=== PATIENT | male | born 1945 | race Caucasian/White ===

== ENCOUNTER 2018-01-12 11:15 | Inpatient (IN) | payer MEDICARE ==
[2018-01-12] MEDS ORDERED: HEPARIN SODIUM,PORCINE 5,000 UNIT/ML 1 ML VIAL IV ONE (11:18)
[2018-01-12] MEDS ORDERED: NITROGLYCERIN OINT 1 INCH/GM PACKET TOPICAL STA (11:18)
[2018-01-12] MEDS ORDERED: SODIUM CHLORIDE 0.9% 1,000 ML IV STA (11:18)
[2018-01-12] MEDS ORDERED: NITROGLYCERIN SL TABS 0.4 MG TAB SUBLINGUAL PRN ×2 (11:18→12:17)
[2018-01-12] MEDS ORDERED: ASPIRIN 81 MG PO STA (11:18)
[2018-01-12] MEDS ORDERED: HEPARIN SODIUM,PORCINE 5,000 UNIT/ML 1 ML VIAL IV PRN (11:18)
--- NOTE | 2018-01-12 11:23 | ED ---
General Adult HPI - General Stated complaint: stemi Time Seen by Provider: 01/12/18 11:18 Source: RN notes reviewed, old records reviewed - History of Present Illness Initial comments: This is a 74 felt to the ER for evaluation, patient's brought in the ER for evaluation regarding chest pain. Severe chest pain brought in by EMS. EMS got patient a primary care doctor's office for a presented for chest pain. Patient positive ST elevation, patient transferred to ER for treatment. Patient himself is continuing continuing to complain of chest pain started about an hour and a half prior to now arrival in the ER, chest pain with shortness of breath and mild diaphoresis. No prior history of heart attack Review of Systems ROS Statement: Those systems with pertinent positive or pertinent negative responses have been documented in the HPI. ROS Other: All systems not noted in ROS Statement are negative. General Exam General appearance: alert, in no apparent distress, anxious Head exam: Present: atraumatic, normocephalic, normal inspection Eye exam: Present: normal appearance, PERRL, EOMI. Absent: scleral icterus, conjunctival injection, periorbital swelling ENT exam: Present: normal exam, mucous membranes moist Neck exam: Present: normal inspection. Absent: tenderness, meningismus, lymphadenopathy Respiratory exam: Present: normal lung sounds bilaterally. Absent: respiratory distress, wheezes, rales, rhonchi, stridor Cardiovascular Exam: Present: regular rate, normal rhythm, normal heart sounds. Absent: systolic murmur, diastolic murmur, rubs, gallop, clicks GI/Abdominal exam: Present: soft, normal bowel sounds. Absent: distended, tenderness, guarding, rebound, rigid Extremities exam: Present: normal inspection, full ROM, normal capillary refill. Absent: tenderness, pedal edema, joint swelling, calf tenderness Back exam: Present: normal inspection Neurological exam: Present: alert, oriented X3, CN II-XII intact Psychiatric exam: Present: normal affect, normal mood Skin exam: Present: warm, dry, intact, normal color. Absent: rash Course - Reevaluation(s) Reevaluation #1: 01/12/18 11:21 Page STEMI, cardiac team cath team and Dr. Martinez in ER evaluating patient 01/12/18 11:21 EKG Findings - EKG Comments: EKG Findings:: EKG shows positive ST elevated MS, V1 V2 V3 have positive ST elevation Medical Decision Making - Medical Decision Making 73 male the ER for evaluation, patient comes in for evaluation regarding chest pain positive chest pain positive E EKG for ST elevated MS. 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
[2018-01-12] MEDS ORDERED: IV FLUID CONTINUATION 125 ML IV ONE (11:25)
[2018-01-12 11:27] LABS: HCT 41.6 % (39.0-53.0); HGB 14.2 gm/dL (13.0-17.5); MCH 31.2 pg (25.0-35.0); MCHC 34.2 g/dL (31.0-37.0); MCV 91.4 fL (80.0-100.0); Mean Platelet Volume 7.4; Platelet Count 256 k/uL (150-450); RBC 4.55 m/uL (4.30-5.90); RDW 12.6 % (11.5-15.5); WBC 7.4 k/uL (3.8-10.6)
[2018-01-12] MEDS ORDERED: HEPARIN SOD,PORK IN 0.45% NACL 25,000 UNIT in 0.45% NACL 1 500ML.BAG IV SCH (11:30)
[2018-01-12] MEDS ORDERED: SODIUM CHLORIDE 0.9% 1,000 ML IV ONE (11:30)
[2018-01-12] MEDS ORDERED: MIDAZOLAM 2 MG/2 ML VIAL IVP ONE (11:33)
[2018-01-12] MEDS ORDERED: LIDOCAINE 1% INJ 10MG/ML (20 ML MDV) SQ ONE (11:34)
[2018-01-12] MEDS ORDERED: fentaNYL (PF) 50 MCG/ML 2 ML AMP IVP ONE (11:34)
[2018-01-12] MEDS ORDERED: NITROGLYCERIN OINT 1 INCH/GM PACKET TOPICAL ONE (11:35)
[2018-01-12] MEDS ORDERED: diphenhydrAMINE 50 MG/ML 1 ML VIAL IVP STA (11:36)
[2018-01-12] MEDS ORDERED: methylPREDNISolone SOD SUCCI 125 MG/2 ML VIAL IV STA (11:36)
[2018-01-12 11:40] LABS: Albumin 2.5 g/dL (3.5-5.0); Calcium 6.7 mg/dL (8.4-10.2); Total Bilirubin 0.5 mg/dL (0.2-1.3); Total Protein 4.7 g/dL (6.3-8.2)
[2018-01-12] MEDS ORDERED: BIVALIRUDIN BOLUS 250 MG/50 ML IV ONE (11:45)
[2018-01-12] MEDS ORDERED: BIVALIRUDIN 250 MG in SODIUM CHLORIDE 0.9% 50 ML IV ONE (11:46)
[2018-01-12] MEDS ORDERED: TICAGRELOR 90 MG TAB PO ONE (11:55)
[2018-01-12] MEDS: NITROGLYCERIN 1000MCG/10ML SYRINGE INTRACORON ONE ×2 (11:56→12:02)
[2018-01-12] MEDS ORDERED: POTASSIUM CHLORIDE ER 20 MEQ TAB.ER PO STA (11:56)
[2018-01-12 11:57] LABS: Prothrombin Time 10.2 sec (9.0-12.0)
[2018-01-12 12:00] LABS: Creatine Kinase MB 1.9 ng/mL (0.0-2.4); Troponin I 0.02 ng/mL (0.000-0.034)
[2018-01-12] MEDS ORDERED: IOPAMIDOL-370 125ML BTL INJ ONE (12:00)
[2018-01-12] MEDS ORDERED: IOPAMIDOL-370 100ML BTL INJ ONE (12:11)
[2018-01-12] MEDS ORDERED: MAG HYDROX/AL HYDROX/SIMETH 30 ML CUP PO PRN (12:17)
[2018-01-12] MEDS ORDERED: ZOLPIDEM 5 MG TAB PO PRN (12:17)
[2018-01-12] MEDS ORDERED: ATROPINE SULFATE 0.1 MG/ML 10ML SYRINGE IV PRN (12:17)
[2018-01-12] MEDS ORDERED: RX INFO: IV CONTRAST WAS GIVEN 1 EACH MISC MISCELLANE PRN (12:17)
--- NOTE | 2018-01-12 12:18 | CC ---
CARDIAC CATHETERIZATION REPORT INDICATION: Acute anterior wall myocardial infarction. PROCEDURE NOTE: After obtaining informed consent, left heart catheterization, coronary angiogram are performed via the right femoral artery using standard Micaela catheters. The patient tolerated the procedure well without any obvious immediate complications. The patient received moderate conscious sedation. Total sedation time was 15 minutes. FINDINGS: 1. HEMODYNAMICS: Left ventricular end-diastolic pressure is 16-18 mm. There is no significant gradient across aortic valve. 2. LEFT VENTRICULOGRAM. Left ventriculogram is not performed. 3. ANGIOGRAPHIC DATA: Left Main Coronary Artery: Left main coronary artery is a normal-sized vessel stenosis, divides into left anterior descending coronary artery and circumflex coronary artery. LAD shows a proximal area of plaque rupture, an area of 95% stenosis in the proximal part and there is a segmental area of another 80-90% in the mid LAD and the very distal LAD also has a 70% to 80% stenosis. Circumflex coronary artery is a nondominant vessel, has an ostial stenosis of 70-80% and the mid circumflex coronary artery has another focal area of stenosis that is 80- 90%. Right coronary artery is a large dominant vessel that has an 80% stenosis as it bifurcates into PDA and PLV with mild to moderate atherosclerotic plaque in the midportion. CONCLUSION: Three-vessel coronary artery disease with a thrombus filling defect and multiple segmental area of lesions within the left anterior descending artery. PLAN: The patient will undergo angioplasty of the LAD and will be referred to bypass surgery for the other vessels. MMODL / IJN: [id number] /
--- NOTE | 2018-01-12 12:21 | CONS ---
CONSULTATION CHIEF COMPLAINT: Chest pain This is a 73-year-old gentleman with history of dyslipidemia and family history of premature coronary artery disease, who presented to primary care physician's office with chest pain. Chest pain started about 1.5 hours ago, severe intensity, precordial without definite radiation to neck, arm or back. It was associated with shortness of breath. He initially presented to primary care physician. EKG showed acute ST-segment elevation in the anterior leads. EMS was called. This was a CT scan. You asked the nurse to ask him to get some potassium IV for 40 mEq IV piggyback please 20 mEq IV piggyback g are was by the time he was sent in EMS to the [facility] where I evaluated him. He was still having 5/10 intensity chest pain and was advised emergent cardiac catheterization and primary angioplasty. He received a bolus of heparin, aspirin, nitrates. The patient has IV DYE allergy and received Solu-Medrol and Benadryl. PAST MEDICAL HISTORY: Significant for dyslipidemia. MEDICATIONS: He is on simvastatin, Flomax, and aspirin. ALLERGIES: He is allergic to IV dye. FAMILY HISTORY: Significant for premature coronary artery disease. SOCIAL HISTORY: Negative for smoking, EtOH abuse, or drug abuse. REVIEW OF SYSTEMS: HEENT is unremarkable cardiac as described above respiratory negative GI negative ENT negative. ALLERGY/IMMUNOLOGY: Negative. MUSCULOSKELETAL: Significant for arthritis. PSYCHOSOCIAL: Negative. ENDOCRINE: Negative. DERMATOLOGICAL: Negative. CONSTITUTIONAL: Negative. ONCOLOGICAL: Negative. Rest of the system review is not relevant. PHYSICAL EXAM: Comfortable at rest. Blood pressure is elevated. There is no jugular venous distention. Carotid upstroke is normal. There is no bruit. Chest exam reveals good air entry bilaterally. Heart exam reveals first and second heart sounds. No gallop. No murmur. No rub. Abdomen is soft, nontender. Exam of extremities did not reveal any edema. Peripheral pulses are felt. ASSESSMENT: Acute anterior wall myocardial infarction. PLAN: Patient will undergo emergent cardiac catheterization with a view to performing primary angioplasty. MMODL / IJN: [id number] /
[2018-01-12] MEDS ORDERED: SODIUM CHLORIDE 0.9% 1,000 ML IV SCH (12:30)
[2018-01-12 12:34] LABS: Partial Thromboplastin Time 21.8 sec (22.0-30.0)
[2018-01-12 13:27] LABS: Glucose,Whole Blood 123 mg/dL (75-99)
[2018-01-12] MEDS ORDERED: Magnesium Replacement Protocol 1 EACH MISC MISCELLANE PRN (13:58)
[2018-01-12] MEDS ORDERED: Potassium Replacement Protocol 1 EACH MISC MISCELLANE PRN (13:58)
[2018-01-12] MEDS ORDERED: HYDROcodone/APAP 5-325MG 1 EACH TAB PO PRN (14:50)
[2018-01-12] MEDS ORDERED: DIAZEPAM 2 MG TAB PO PRN (14:50)
[2018-01-12] MEDS ORDERED: ONDANSETRON 4 MG/2 ML VIAL IVP PRN (14:50)
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
--- NOTE | 2018-01-12 15:23 | XR ---
EXAMINATION TYPE: XR chest 1V portable DATE OF EXAM: 01/12/2018 HISTORY: Shortness of breath. COMPARISON: None. TECHNIQUE: Single view of the chest is submitted. FINDINGS: Demonstrated are scattered senescent parenchymal change. There is no evidence for focal infiltrate. The heart is stable. Hilar and mediastinal structures are within normal limits. Degenerative changes are seen of the dorsal spine. IMPRESSION: 1. Chronic changes without evidence for acute pulmonary disease.
[2018-01-12 17:08] LABS: Calcium 8.9 mg/dL (8.4-10.2); Magnesium 1.9 mg/dL (1.6-2.3); Potassium 4.8 mmol/L (3.5-5.1)
[2018-01-12 17:12] LABS: Creatine Kinase MB 36.6 ng/mL (0.0-2.4); Troponin I 11.3 ng/mL (0.000-0.034)
--- NOTE | 2018-01-12 17:45 | PTCA ---
PERCUTANEOUSTRANS CORORONARY ANGIOGRAPHY DATE OF SERVICE: January 12, 2018 PERFORMING PHYSICIAN: Bradley Tineo MD, licensed psychologist. PROCEDURE PERFORMED: Successful stenting of the proximal and mid LAD using using 2.75 x 38 mm Xience SHARON with good angiographic results. INDICATION: This is a pleasant 73-year-old gentleman with hypertension and significant family history of coronary artery disease who presented to the hospital with chest discomfort and was diagnosed with acute anterior ST-elevation myocardial infarction. He underwent heart catheterization by Dr. Martinez and was found to have critical disease involving the proximal and mid LAD with 2 adjacent lesions. Beside that he does have a lesion in the very distal LAD by the apex. The decision was made towards percutaneous coronary intervention emergently on the LAD. APPROACH: Right common femoral artery. COMPLICATION: None. LEVEL OF SEDATION: Moderate with sedation length of 25 minutes. PROCEDURE DESCRIPTION: After diagnostic heart catheterization was performed by Dr. Martinez and after reviewing the angiogram, we decided to pursue with intervention on the LAD. Anticoagulation was initiated using Angiomax. Subsequently the patient was given 180 mg of Brilinta. The left main was engaged using an XP35 LAD guide. A whisper wire was used to wire the LAD. I did balloon angioplasty using 2.5 x 12 mm balloon of both lesions in the proximal and mid LAD and subsequently I deployed 1 stent which was 2.75 x 38 mm, where the stent was positioned under fluoroscopy guidance and deployed under its nominal pressure. I post dilated the stent in the proximal portion using 3 mm noncompliant balloon. The following angiogram showed good angiographic results and the procedure was completed without any complication. POSTPROCEDURE MANAGEMENT: 1. Dual anti-platelet therapy. 2. Risk factor modification. 3. Follow up with the patient. MMODL / IJN: [id number] /
[2018-01-12] MEDS: MAGNESIUM SULFATE-D5W PMX 1 GM in DEXTROSE/WATER 1 100ML.BAG IVPB SCH ×2 (17:58→19:04)
[2018-01-12] MEDS: METOPROLOL TARTRATE 25 MG TAB PO SCH (20:51)
[2018-01-12] MEDS: ATORVASTATIN 80 MG TAB PO SCH (20:51)
[2018-01-12] MEDS: TICAGRELOR 90 MG TAB PO SCH (20:51)
[2018-01-12] MEDS ORDERED: METOPROLOL TARTRATE 25 MG TAB PO SCH (21:00)
[2018-01-13 00:53] LABS: Creatine Kinase MB 41.9 ng/mL (0.0-2.4); Troponin I 12.1 ng/mL (0.000-0.034)
[2018-01-13 04:55] LABS: HGB 13.2 gm/dL (13.0-17.5); MCH 31.3 pg (25.0-35.0); MCHC 33.8 g/dL (31.0-37.0); MCV 92.7 fL (80.0-100.0); Mean Platelet Volume 7.4; Platelet Count 240 k/uL (150-450); RBC 4.21 m/uL (4.30-5.90); RDW 12.7 % (11.5-15.5); WBC 16.2 k/uL (3.8-10.6)
[2018-01-13 05:07] LABS: Calcium 8.8 mg/dL (8.4-10.2); Magnesium 2.2 mg/dL (1.6-2.3)
[2018-01-13] MEDS: TAMSULOSIN 0.4 MG CAP.ER.24H PO SCH (08:13)
[2018-01-13] MEDS: LISINOPRIL 5 MG TAB PO SCH (08:13)
[2018-01-13] MEDS: ASPIRIN 81 MG PO SCH (08:13)
[2018-01-13] MEDS: METOPROLOL TARTRATE 25 MG TAB PO SCH ×2 (08:13→21:06)
[2018-01-13] MEDS: TICAGRELOR 90 MG TAB PO SCH ×2 (08:13→21:07)
[2018-01-13] MEDS ORDERED: ASPIRIN 325 MG TAB PO SCH (09:00)
--- NOTE | 2018-01-13 09:23 | P.PN ---
Subjective Progress Note Date: 01/13/18 Principal diagnosis: chest pain Patient is a 73-year-old male past medical history of dyslipidemia, BPH, kidney cancer status post resection and ALLERGIES who presented initially to his PCPs office with chest pain. He was PCPs office they did obtain an EKG and found ST segment elevation. EMS was called immediately and he received aspirin and nitro at their office. He was transported here for further evaluation. In the ER the general labor was activated and he was taken for emergent catheterization. He was found to have three-vessel disease with plaque rupture of the LAD. He received 1 stent to the LAD. He was admitted to the ICU. Seen and examined at bedside. He is not having any chest pain shortness of breath, nausea, or vomiting post catheterization. He has some back pain from the bed. He has been up and walking in the hallways without any difficulty. Objective - Vital Signs Vital signs: Vital Signs Temp 98.1 F 01/13/18 08:00 Pulse 65 01/13/18 08:00 Resp 16 01/13/18 08:00 BP 115/53 01/13/18 08:00 Pulse Ox 97 01/13/18 08:37 Intake & Output 01/12/18 01/13/18 01/13/18 18:59 06:59 18:59 Intake Total 1641 1420 200 Output Total 500 250 Balance 1141 1170 200 Weight 71.668 kg 73.1 kg Intake: IV 801 1300 200 Magnesium Sulfate-D5w Pmx 100 200 1 gm In Dextrose/Water 1 100ml.bag @ 100 mls/hr IVPB Q1H [facility]MA Rx#: [id number] Sodium Chloride 0.9% 1, 400 1100 200 000 ml @ 100 mls/hr IV . Q10H [facility]MA Rx#:[id number] Oral 840 120 Output: Urine 500 250 Other: Voiding Method Urinal Urinal Urinal # Voids 0 - Exam General: non toxic, no distress, appears at stated age Derm: warm, dry Head: atraumatic, normocephalic, symmetric Eyes: EOMI, no lid lag, anicteric sclera Mouth: no lip lesion, mucus membranes moist Cardiovascular: S1S2 reg, no murmur, positive posterior tibial pulse bilateral, Lungs: CTA bilateral, no rhonchi, no rales , no accessory muscle use Abdominal: soft, nontender to palpation, no guarding, no appreciable organomegaly Ext: no gross muscle atrophy, no edema, no contractures Neuro: CN II-XI grossly intact, no focal neuro deficits Psych: Alert, oriented, appropriate affect - Labs CBC & Chem 7: 01/13/18 04:39 01/13/18 04:39 Labs: Abnormal Lab Results - Last 24 Hours (Table) 01/12/18 01/12/18 01/12/18 Range/Units 11:18 11:18 13:25 WBC (3.8-10.6) k/uL RBC (4.30-5.90) m/uL APTT 21.8 L (22.0-30.0) sec Potassium 3.0 L* (3.5-5.1) mmol/L Chloride 120 H* (98-107) mmol/L Carbon Dioxide 16 L (22-30) mmol/L BUN (9-20) mg/dL Creatinine (0.66-1.25) mg/dL Glucose (74-99) mg/dL POC Glucose (mg/dL) 123 H (75-99) mg/dL Calcium 6.7 L (8.4-10.2) mg/dL Total Creatine Kinase (55-170) U/L CK-MB (CK-2) (0.0-2.4) ng/mL Troponin I (0.000-0.034) ng/mL Total Protein 4.7 L (6.3-8.2) g/dL Albumin 2.5 L (3.5-5.0) g/dL LDL Cholesterol, Calc (0-99) mg/dL HDL Cholesterol (40-60) mg/dL 01/12/18 01/12/18 01/12/18 Range/Units 16:13 16:13 23:55 WBC (3.8-10.6) k/uL RBC (4.30-5.90) m/uL APTT (22.0-30.0) sec Potassium (3.5-5.1) mmol/L Chloride 108 H (98-107) mmol/L Carbon Dioxide 19 L (22-30) mmol/L BUN 23 H (9-20) mg/dL Creatinine 1.32 H (0.66-1.25) mg/dL Glucose 240 H (74-99) mg/dL POC Glucose (mg/dL) (75-99) mg/dL Calcium (8.4-10.2) mg/dL Total Creatine Kinase 431 H 462 H (55-170) U/L CK-MB (CK-2) 36.6 H* 41.9 H* (0.0-2.4) ng/mL Troponin I 11.300 H* 12.100 H* (0.000-0.034) ng/mL Total Protein (6.3-8.2) g/dL Albumin (3.5-5.0) g/dL LDL Cholesterol, Calc (0-99) mg/dL HDL Cholesterol (40-60) mg/dL 01/13/18 01/13/18 Range/Units 04:39 04:39 WBC 16.2 H (3.8-10.6) k/uL RBC 4.21 L (4.30-5.90) m/uL APTT (22.0-30.0) sec Potassium (3.5-5.1) mmol/L Chloride 111 H (98-107) mmol/L Carbon Dioxide 20 L (22-30) mmol/L BUN 23 H (9-20) mg/dL Creatinine (0.66-1.25) mg/dL Glucose 128 H (74-99) mg/dL POC Glucose (mg/dL) (75-99) mg/dL Calcium (8.4-10.2) mg/dL Total Creatine Kinase (55-170) U/L CK-MB (CK-2) (0.0-2.4) ng/mL Troponin I (0.000-0.034) ng/mL Total Protein (6.3-8.2) g/dL Albumin (3.5-5.0) g/dL LDL Cholesterol, Calc 110 H (0-99) mg/dL HDL Cholesterol 38 L (40-60) mg/dL Assessment and Plan Assessment: ST segment elevated myocardial infarction -Brillenta, aspirin, metoprolol, lisinopril -Cardiology recommendations -Has 3 vessel disease and likely will need a staged procedure -Await echocardiogram RAJIV, - improving - oral fluids encouraged - repeat in AM Leukocytosis - suspect reactive - repeat CBC in AM Hyperchloremic metabolic acidosis - improving - repeat in AM Dyslipidemia -Lipitor -LDL 110 BPH -Continue Flomax Hyperglycemia with Family history of diabetes -hemoglobin A1c pendnig History of kidney cancer status post resection -Outpatient follow-up Hypokalemia, resolved - Transfer out of ICU today if cardio in agreement DVT prophylaxis: Heparin Discussed with: Patient Anticipated discharge date: [address]: Home A total of 35 minutes was spent on the care of this complex patient more than 50 % of the time was spent in counseling and care coordination.
--- NOTE | 2018-01-13 11:05 | ECHOF ---
Referral Reason:STEMI MEASUREMENTS -------- HEIGHT: 170.2 cm WEIGHT: 71.7 kg BP: 149/71 IVSd: 0.9 cm (0.6 - 1.1) LVIDd: 4.1 cm (3.9 - 5.3) LVPWd: 1.3 cm (0.6 - 1.1) IVSs: 1.2 cm LVIDs: 2.5 cm LVPWs: 1.2 cm LA Diam: 3.3 cm (2.7 - 3.8) LAESV Index (A-L): 23.88 ml/m Ao Diam: 3.4 cm (2.0 - 3.7) AV Cusp: 1.6 cm (1.5 - 2.6) LA Diam: 2.9 cm (2.7 - 3.8) MV EXCURSION: 22.777 mm (> 18.000) MV EF SLOPE: 96 mm/s (70 - 150) EPSS: 0.4 cm MV E Garrett: 0.46 m/s MV DecT: 196 ms MV A Garrett: 0.85 m/s MV E/A Ratio: 0.54 RAP: 5.00 mmHg RVSP: 36.65 mmHg FINDINGS -------- Sinus rhythm. This was a technically adequate study. The left ventricular size is normal. Left ventricular wall thickness is normal. There is moderate global hypokinesis of LV . Overall left ventricular systolic function is moderate-severely impaire d with, an EF between 30 - 35 %. Anterseptal Hypokinesis Inferior Hypokinesis Septal Hypokinesi s [place] Hypokinesis. The right ventricle is normal in size. The left atrial size is normal. The right atrial size is normal. There is mild aortic valve sclerosis. There is mild aortic regurgitation. Mild mitral annular calcification present. Mild mitral regurgitation is present. Mild tricuspid regurgitation present. There is mild pulmonary hypertension. The right ventricular systolic pressure, as measured by Doppler, is 36.65mmHg. Trace/mild (physiologic) pulmonic regurgitation. The aortic root size is normal. There is no pericardial effusion. CONCLUSIONS -------- 1. The left ventricular size is normal. 2. Left ventricular wall thickness is normal. 3. There is moderate global hypokinesis of LV . 4. Overall left ventricular systolic function is moderate-severely impaired with, an EF between 30 - 35 %. 5. Anterseptal Hypokinesis 6. Inferior Hypokinesis 7. Septal Hypokinesis 8. [place] Hypokinesis. 9. The right ventricle is normal in size. 10. The left atrial size is normal. 11. The right atrial size is normal. 12. There is mild aortic valve sclerosis. 13. There is mild aortic regurgitation. 14. Mild mitral annular calcification present. 15. Mild mitral regurgitation is present. 16. Mild tricuspid regurgitation present. 17. There is mild pulmonary hypertension. 18. The right ventricular systolic pressure, as measured by Doppler, is 36.65mmHg. 19. Trace/mild (physiologic) pulmonic regurgitation. 20. The aortic root size is normal. 21. There is no pericardial effusion. INFORMATION CODER: Elsie Gambino RDCS
--- NOTE | 2018-01-13 11:07 | CONS ---
CONSULTATION This 73-year-old gentleman that is admitted to hospital with acute anterior wall myocardial infarction who underwent cardiac catheterization, angioplasty of LAD. The patient has significant lesions involving circ and right coronary artery. The plan at this stage is to treat him with optimal medical therapy and see how he does and then decide on whether to send him to bypass surgery and consider angioplasty at a later time. Since being admitted to the hospital, he is doing well. Has not had any episodes of chest pain. His peak troponin was 12.1. At the time of my evaluation this morning, he appears comfortable at rest. Vital signs are stable. There is no jugular venous distention. Chest exam reveals good air entry bilaterally. Heart exam reveals first and second heart sounds. No gallop. No murmur. Abdomen is soft, nontender. Exam of the extremities did not reveal edema. Peripheral pulses are felt. Groin is free of bleeding, bruit, hematoma. The patient's medications include aspirin, Lipitor, Lopressor, and Brilinta. ASSESSMENT: Acute anterior wall myocardial infarction, status post catheterization and angioplasty. PLAN: Patient is doing well. We will transfer him out to telemetry home on Tuesday. We will review the echo once the results are available. MMODL / IJN: [id number] /
[2018-01-13 11:25] VITALS: BMI 25.2
[2018-01-13] MEDS: HEPARIN SODIUM,PORCINE 5,000 UNIT/ML 1 ML VIAL SQ SCH ×2 (15:55→23:13)
[2018-01-13 16:31] LABS: Hemoglobin A1C 5.6 % (4.0-6.0)
[2018-01-13] MEDS: ATORVASTATIN 80 MG TAB PO SCH (21:07)
[2018-01-14 05:00] LABS: HCT 38.1 % (39.0-53.0); HGB 12.9 gm/dL (13.0-17.5); MCH 31.2 pg (25.0-35.0); MCHC 33.8 g/dL (31.0-37.0); MCV 92.3 fL (80.0-100.0); Mean Platelet Volume 7.8; Platelet Count 220 k/uL (150-450); RBC 4.13 m/uL (4.30-5.90); WBC 11.3 k/uL (3.8-10.6)
[2018-01-14 05:15] LABS: Calcium 8.8 mg/dL (8.4-10.2); Potassium 4.3 mmol/L (3.5-5.1)
[2018-01-14] MEDS: HEPARIN SODIUM,PORCINE 5,000 UNIT/ML 1 ML VIAL SQ SCH ×2 (09:35→17:31)
[2018-01-14] MEDS: METOPROLOL TARTRATE 25 MG TAB PO SCH (09:36)
[2018-01-14] MEDS: TAMSULOSIN 0.4 MG CAP.ER.24H PO SCH (09:36)
[2018-01-14] MEDS: ASPIRIN 81 MG PO SCH (09:36)
[2018-01-14] MEDS: TICAGRELOR 90 MG TAB PO SCH ×2 (09:36→20:47)
[2018-01-14] MEDS: LISINOPRIL 5 MG TAB PO SCH (10:45)
--- NOTE | 2018-01-14 12:34 | P.PN ---
Subjective Progress Note Date: 01/14/18 Principal diagnosis: chest pain Patient is a 73-year-old male past medical history of dyslipidemia, BPH, kidney cancer status post resection and ALLERGIES who presented initially to his PCPs office with chest pain. He was PCPs office they did obtain an EKG and found ST segment elevation. EMS was called immediately and he received aspirin and nitro at their office. He was transported here for further evaluation. In the ER the cath lab manager was activated and he was taken for emergent catheterization. He was found to have three-vessel disease with plaque rupture of the LAD. He received 1 stent to the LAD. He was admitted to the ICU. He has done well after the stent. Echo was preformed with EF 30-35%. Seen and examined at bedside. Feeing well. No complaints. No nausea. No chest pain. No dizziness. Objective - Vital Signs Vital signs: Vital Signs Temp 97.8 F 01/14/18 08:00 Pulse 75 01/14/18 09:35 Resp 16 01/14/18 09:35 BP 117/55 01/14/18 09:35 Pulse Ox 95 01/14/18 09:35 Intake & Output 01/13/18 01/14/18 01/14/18 18:59 06:59 18:59 Intake Total 200 600 Output Total 650 250 Balance -450 350 Weight 73.1 kg 73 kg Intake: IV 200 Sodium Chloride 0.9% 1, 200 000 ml @ 100 mls/hr IV . Q10H EMMA Rx#:[id number] Oral 600 Output: Urine 650 250 Other: Voiding Method Urinal Urinal Urinal # Voids 0 1 - Exam General: non toxic, no distress, appears at stated age Derm: warm, dry Head: atraumatic, normocephalic, symmetric Eyes: EOMI, no lid lag, anicteric sclera Mouth: no lip lesion, mucus membranes moist Cardiovascular: S1S2 reg, no murmur, positive posterior tibial pulse bilateral, Lungs: CTA bilateral, no rhonchi, no rales , no accessory muscle use Abdominal: soft, nontender to palpation, no guarding, no appreciable organomegaly Ext: no gross muscle atrophy, trace edema, no contractures Neuro: CN II-XI grossly intact, no focal neuro deficits Psych: Alert, oriented, appropriate affect - Labs CBC & Chem 7: 01/14/18 04:46 01/14/18 04:46 Labs: Abnormal Lab Results - Last 24 Hours (Table) 01/14/18 01/14/18 Range/Units 04:46 04:46 WBC 11.3 H (3.8-10.6) k/uL RBC 4.13 L (4.30-5.90) m/uL Hgb 12.9 L (13.0-17.5) gm/dL Hct 38.1 L (39.0-53.0) % Chloride 109 H (98-107) mmol/L Carbon Dioxide 21 L (22-30) mmol/L BUN 26 H (9-20) mg/dL Assessment and Plan Assessment: ST segment elevated myocardial infarction -Brillenta, aspirin, metoprolol, lisinopril -Cardiology recommendations Newly discovered systolic cardiomyopthy, probably due to ischemia EF 30-35% - metoprolol, ASA, Lisinopril, and repeat echo in 3 months. - D/W cardio do not feel he would benefit from a life vest at this point in time. Leukocytosis, improving - suspect reactive - repeat CBC in AM Hyperchloremic metabolic acidosis - improving - repeat in AM Dyslipidemia -Lipitor -LDL 110 BPH -Continue Flomax Hyperglycemia with Family history of diabetes -A1C 5.6 History of kidney cancer status post resection -Outpatient follow-up Hypokalemia, resolved RAJIV, resolved DVT prophylaxis: Heparin Discussed with: Patient Anticipated discharge date: [address]: Home A total of 35 minutes was spent on the care of this complex patient more than 50 % of the time was spent in counseling and care coordination.
--- NOTE | 2018-01-14 13:06 | P.PN ---
Subjective Progress Note Date: 01/14/18 This is a pleasant 73-year-old gentleman who presented to the hospital with chest discomfort and was diagnosed with acute anterior ST elevation myocardial infarction where the patient underwent an emergent heart catheterization by Dr. Jones and was found to have critical disease involving the LAD with severe disease involving the left circumflex and RCA. The patient underwent successful stenting of the LAD with a good angiographic results and without any complication. The stenting was performed in the proximal and mid LAD. The echocardiogram revealed impaired LV function was EF around 35%. Clinically the patient denies having any chest pain or discomfort or shortness of breath or dizziness or lightheadedness. He has been active and walking around without any symptoms. Objective - Vital Signs Vital signs: Vital Signs Temp 97.8 F 01/14/18 08:00 Pulse 75 01/14/18 09:35 Resp 16 01/14/18 09:35 BP 117/55 01/14/18 09:35 Pulse Ox 95 01/14/18 09:35 Intake & Output 01/13/18 01/14/18 01/14/18 18:59 06:59 18:59 Intake Total 200 600 Output Total 650 250 Balance -450 350 Weight 73.1 kg 73 kg Intake: IV 200 Sodium Chloride 0.9% 1, 200 000 ml @ 100 mls/hr IV . Q10H EMMA Rx#:[id number] Oral 600 Output: Urine 650 250 Other: Voiding Method Urinal Urinal Urinal # Voids 0 1 - Constitutional General appearance: Present: no acute distress - Respiratory Respiratory: bilateral: CTA - Cardiovascular Rhythm: regular Heart sounds: normal: S1, S2 - Labs CBC & Chem 7: 01/14/18 04:46 01/14/18 04:46 Labs: Abnormal Lab Results - Last 24 Hours (Table) 01/14/18 01/14/18 Range/Units 04:46 04:46 WBC 11.3 H (3.8-10.6) k/uL RBC 4.13 L (4.30-5.90) m/uL Hgb 12.9 L (13.0-17.5) gm/dL Hct 38.1 L (39.0-53.0) % Chloride 109 H (98-107) mmol/L Carbon Dioxide 21 L (22-30) mmol/L BUN 26 H (9-20) mg/dL Assessment and Plan Assessment: assessment #[address] elevation myocardial infarction #2 severe triple-vessel coronary artery disease #3 impaired LV function #4 multiple comorbid conditions Plan #1 continue the current medical treatment which included dual antiplatelet therapy along with high intensity statin #2 possible discharge in the next 24 hours.
[2018-01-14 19:49] VITALS: RESP 18
[2018-01-14] MEDS: METOPROLOL TARTRATE 12.5 MG TAB PO SCH (20:47)
[2018-01-14] MEDS: ATORVASTATIN 80 MG TAB PO SCH (20:48)
[2018-01-15] MEDS: HEPARIN SODIUM,PORCINE 5,000 UNIT/ML 1 ML VIAL SQ SCH ×2 (01:50→08:10)
[2018-01-15] MEDS: ASPIRIN 81 MG PO SCH (08:10)
[2018-01-15] MEDS: METOPROLOL TARTRATE 12.5 MG TAB PO SCH (08:10)
[2018-01-15] MEDS: TAMSULOSIN 0.4 MG CAP.ER.24H PO SCH (08:10)
[2018-01-15] MEDS: TICAGRELOR 90 MG TAB PO SCH (08:10)
[2018-01-15] MEDS: LISINOPRIL 5 MG TAB PO SCH (08:10)
[2018-01-15 10:45] VITALS: BP 111/52; PULSE 74; TEMP 97.1
--- NOTE | 2018-01-15 10:48 | P.PN ---
Subjective Progress Note Date: 01/15/18 This is a pleasant 73-year-old gentleman who presented to the hospital with chest discomfort and was diagnosed with acute anterior ST elevation myocardial infarction where the patient underwent an emergent heart catheterization by Dr. Martinez and was found to have critical disease involving the LAD with severe disease involving the left circumflex and RCA. The patient underwent successful stenting of the LAD with a good angiographic results and without any complication. The stenting was performed in the proximal and mid LAD. The echocardiogram revealed impaired LV function was EF around 35%. Clinically the patient denies having any chest pain or discomfort or shortness of breath or dizziness or lightheadedness. He has been active and walking around without any symptoms. From the cardiac vascular standpoint overview, the patient can be discharged home. Objective - Vital Signs Vital signs: Vital Signs Temp 97.1 F L 01/15/18 08:00 Pulse 74 01/15/18 08:00 Resp 18 01/15/18 08:00 BP 111/52 01/15/18 08:00 Pulse Ox 96 01/15/18 08:00 Intake & Output 01/14/18 01/15/18 01/15/18 18:59 06:59 18:59 Intake Total 840 680 240 Output Total 250 0 Balance 590 680 240 Weight 73.2 kg Intake: Oral 840 680 240 Output: Urine 250 0 Other: Voiding Method Urinal Urinal # Voids 1 3 - Constitutional General appearance: Present: no acute distress - Respiratory Respiratory: bilateral: CTA - Cardiovascular Rhythm: regular Heart sounds: normal: S1, S2 - Labs CBC & Chem 7: 01/14/18 04:46 01/14/18 04:46 Assessment and Plan Assessment: assessment #[address] elevation myocardial infarction #2 severe triple-vessel coronary artery disease #3 impaired LV function #4 multiple comorbid conditions Plan #1 continue the current medical treatment which included dual antiplatelet therapy along with high intensity statin #2 the patient is going to be discharged home.
--- NOTE | 2018-01-15 10:59 | P.DS ---
Providers Date of admission: 01/12/18 11:18 Expected date of discharge: 01/15/18 Attending physician: Maine Diaz MD Consults: 01/12/18 11:18 Consult Physician Urgent Consulting Provider: Tabatha Ernandez Consult Reason/Comments: stemi Do you want consulting provider notified?: Yes 01/12/18 12:17 Consult Physician Routine Consulting Provider: [facility] Consult Reason/Comments: Post Interventional patient Do you want consulting provider notified?: Already Contacted Primary care physician: Jun Bernal Hospital Course: Discharge Diagnosis: ST segment elevated myocardial infarction status post drug-eluting stent to the LAD Multivessel coronary artery disease Ischemic cardiomyopathy with ejection fraction 30-35% Reactive leukocytosis Hyperchloremic metabolic acidosis Dyslipidemia BPH Hyperglycemia, hemoglobin A1c 5.6 History of kidney cancer Hypokalemia Acute kidney injury,dye induced Hospital course: Patient is a 73-year-old male past medical history of dyslipidemia, BPH, kidney cancer status post resection and ALLERGIES who presented initially to his PCPs office with chest pain. He was PCPs office they did obtain an EKG and found ST segment elevation. EMS was called immediately and he received aspirin and nitro at their office. He was transported here for further evaluation. In the ER the rn cardiac cath was activated and he was taken for emergent catheterization. He was found to have three-vessel disease with plaque rupture of the LAD. He received 1 stent to the LAD. He was admitted to the ICU. He has done well after the stent. Echo was preformed with EF 30-35%. He was started on metoprolol, lisinopril, Brillenta and continued on a statin. He did well and was up and ambulating in the halls. He will be discharged home. He will follow-up with cardiology and Dr. Bernal next week. Patient seen and examined at bedside. No chest pain, shortness of breath, nausea, or lightheadedness. He has been awake and walking in the hallways Vital signs reviewed and stable. General: non toxic, no distress, appears at stated age Derm: warm, dry Head: atraumatic, normocephalic, symmetric Eyes: EOMI, no lid lag, anicteric sclera Mouth: no lip lesion, mucus membranes moist Cardiovascular: S1S2 reg, no murmur, positive posterior tibial pulse bilateral, Lungs: CTA bilateral, no rhonchi, no rales , no accessory muscle use Abdominal: soft, nontender to palpation, no guarding, no appreciable organomegaly Ext: no gross muscle atrophy, no edema, no contractures Neuro: CN II-XI grossly intact, no focal neuro deficits Psych: Alert, oriented, appropriate affect A total of 35 minutes of time were spent preparing this complex discharge summary . Pertinent Studies: Echocardiogram-ejection fraction 30-35% Procedures: Cardiac catheterization-3 vessel disease with occluded segment to the LAD where a drug-eluting stent was placed Patient Condition at Discharge: Good Plan - Discharge Summary Discharge Rx Participant: No New Discharge Prescriptions: New Lisinopril [Zestril] 5 mg PO DAILY #30 tab Metoprolol Tartrate [Lopressor] 12.5 mg PO BID #60 tab Nitroglycerin Sl Tabs [Nitrostat] 0.4 mg SUBLINGUAL Q5M PRN #7 tab PRN Reason: Chest Pain Ticagrelor [Brilinta] 90 mg PO BID #60 tab Continue Tamsulosin [Flomax] 0.4 mg PO DAILY Cyclobenzaprine [Flexeril] 10 mg PO TID PRN PRN Reason: Muscle Spasm Aspirin EC [Ecotrin Low Dose] 81 mg PO DAILY Atorvastatin [Lipitor] 80 mg PO HS #30 tab Discharge Medication List Aspirin EC [Ecotrin Low Dose] 81 mg PO DAILY 01/12/18 [History] Cyclobenzaprine [Flexeril] 10 mg PO TID PRN 01/12/18 [History] Tamsulosin [Flomax] 0.4 mg PO DAILY 01/12/18 [History] Atorvastatin [Lipitor] 80 mg PO HS #30 tab 01/15/18 [Rx] Lisinopril [Zestril] 5 mg PO DAILY #30 tab 01/15/18 [Rx] Metoprolol Tartrate [Lopressor] 12.5 mg PO BID #60 tab 01/15/18 [Rx] Nitroglycerin Sl Tabs [Nitrostat] 0.4 mg SUBLINGUAL Q5M PRN #7 tab 01/15/18 [Rx] Ticagrelor [Brilinta] 90 mg PO BID #60 tab 01/15/18 [Rx] Follow up Appointment(s)/Referral(s): Bradley Tineo MD [STAFF PHYSICIAN] - 1 Week Gabe,Jun Y, MD [Primary Care Provider] - 1-2 days Patient Instructions/Handouts: Myocardial Infarction (DC) Activity/Diet/Wound Care/Special Instructions: heart healthy diet Activity as tolerated, no heavy lifting for 7 days Discharge Disposition: HOME SELF-CARE
== END 2018-01-15 14:39 | disposition home or self-care (01) | DRG 247 ==
LOC: EC 11:15 → 6ICU 11:18 → 6SEL 01-14 13:23
PROVIDERS: ADMIT Internal Medicine; ATTEND Internal Medicine
PROC: B211YZZ Fluoroscopy of Multiple Coronary Arteries using Other Contrast (ICD-10-PCS; 2018-01-12)
PROC: 027034Z Dilation of Coronary Artery, One Artery with Drug-eluting Intraluminal Device, Percutaneous Approach (ICD-10-PCS; principal; 2018-01-12 11:30)
PROC: 4A023N7 Measurement of Cardiac Sampling and Pressure, Left Heart, Percutaneous Approach (ICD-10-PCS; 2018-01-12 11:30)
DX: I21.09 ST elevation (STEMI) myocardial infarction involving other coronary artery of anterior wall (principal); E87.2 Acidosis; N17.9 Acute kidney failure, unspecified; E78.5 Hyperlipidemia, unspecified; I25.10 Atherosclerotic heart disease of native coronary artery without angina pectoris; I25.5 Ischemic cardiomyopathy; E87.6 Hypokalemia; M54.30 Sciatica, unspecified side; G89.29 Other chronic pain; M54.9 Dorsalgia, unspecified; J30.2 Other seasonal allergic rhinitis; I10 Essential (primary) hypertension; D72.828 Other elevated white blood cell count; R73.9 Hyperglycemia, unspecified; N40.0 Benign prostatic hyperplasia without lower urinary tract symptoms; Z79.82 Long term (current) use of aspirin; Z79.899 Other long term (current) drug therapy; Z98.52 Vasectomy status; Z85.528 Personal history of other malignant neoplasm of kidney; Z90.5 Acquired absence of kidney; Z91.041 Radiographic dye allergy status; Z83.3 Family history of diabetes mellitus; Z82.49 Family history of ischemic heart disease and other diseases of the circulatory system
CPT/HCPCS: 36415; 71045; 80048; 80053; 80061; 82550; 82553; 83036; 83735; 84484; 85027; 85610; 85730; 93306; 93458; 96374; 96375; 99291

== ENCOUNTER 2018-03-10 14:18 | Emergency (ER) | payer MEDICARE ==
[2018-03-10 14:23] VITALS: BP 109/62; PULSE 62; RESP 18; TEMP 97.5
--- NOTE | 2018-03-10 14:43 | ED ---
Abdominal Pain HPI - General Chief Complaint: Abdominal Pain Stated Complaint: Hernia Time Seen by Provider: 03/10/18 14:24 Source: patient, family, RN notes reviewed, old records reviewed Mode of arrival: ambulatory Limitations: no limitations - History of Present Illness Initial Comments: This patient's a 73-year-old male presents emergency Department chief complaint of right-sided inguinal hernia pain. He reports that the hernia for the past 5 years. He reports today while he was sitting at home he had some left-sided abdominal pain. When this was occurring he realized that his hernia was protruding out and was having a difficult time reducing. Patient reports that he is both hands was able to reduce the hernia on his own. He is concerned with the length of time in the pain that he had recent hernia that there was issues caused by. Patient states that he's had normal bowel habits. He denies any urinary symptoms. - Related Data Home Medications Medication Instructions Recorded Confirmed Aspirin EC [Ecotrin Low Dose] 81 mg PO HS 01/12/18 03/10/18 Tamsulosin [Flomax] 0.4 mg PO Q48H 01/12/18 03/10/18 Atorvastatin [Lipitor] 20 mg PO HS 03/10/18 03/10/18 Previous Rx's Medication Instructions Recorded Lisinopril [Zestril] 5 mg PO DAILY #30 tab 01/15/18 Metoprolol Tartrate [Lopressor] 12.5 mg PO BID #60 tab 01/15/18 Nitroglycerin Sl Tabs [Nitrostat] 0.4 mg SUBLINGUAL Q5M PRN #7 tab 01/15/18 Ticagrelor [Brilinta] 90 mg PO BID #60 tab 01/15/18 Allergies Allergy/AdvReac Type Severity Reaction Status Date / Time Iodinated Contrast- Oral and Allergy Unknown Verified 03/10/18 14:53 IV Dye Review of Systems ROS Statement: Those systems with pertinent positive or pertinent negative responses have been documented in the HPI. ROS Other: All systems not noted in ROS Statement are negative. Past Medical History Past Medical History: Coronary Artery Disease (CAD), GERD/Reflux, Hyperlipidemia , Myocardial Infarction ([place]) Additional Past Medical History / Comment(s): BPH, [place], ASCAD, Seasonal allergies , Bleeding gatric ulcer, [place] cancer History of Any Multi-Drug Resistant Organisms: None Reported Past Surgical History: Tonsillectomy Additional Past Surgical History / Comment(s): Partial nephrectomy secondary to kidney cancer, vasectomy Past Anesthesia/Blood Transfusion Reactions: No Reported Reaction Additional Past Anesthesia/Blood Transfusion Reaction / Comment(s): Pt has received blood in past without reaction. Date of Last Stent Placement:: 01/12/18 Past Psychological History: No Psychological Hx Reported Smoking Status: Never smoker Past Alcohol Use History: None Reported Past Drug Use History: None Reported - Past Family History Mother Additional Family Medical History / Comment(s): Mother had polio and was paralyzed from her neck down. Father Family Medical History: Coronary Artery Disease (CAD), Myocardial Infarction ([place] ) Additional Family Medical History / Comment(s): Father of a [place] in his 50s. He was a heavy drinker and smoker. Sister(s) Family Medical History: Diabetes Mellitus General Exam - General Exam Comments Initial Comments: Is a 73-year-old male. Alert and oriented. No distress. Limitations: no limitations General appearance: alert, in no apparent distress Head exam: Present: atraumatic, normocephalic, normal inspection Eye exam: Present: normal appearance, PERRL, EOMI. Absent: scleral icterus, conjunctival injection, periorbital swelling ENT exam: Present: normal exam, mucous membranes moist Neck exam: Present: normal inspection. Absent: tenderness, meningismus, lymphadenopathy Respiratory exam: Present: normal lung sounds bilaterally. Absent: respiratory distress, wheezes, rales, rhonchi, stridor Cardiovascular Exam: Present: regular rate, normal rhythm, normal heart sounds. Absent: systolic murmur, diastolic murmur, rubs, gallop, clicks GI/Abdominal exam: Present: soft, normal bowel sounds, hernia (Palpable R inguinal hernia that self reduces). Absent: distended, tenderness, guarding, rebound, rigid Extremities exam: Present: normal inspection, full ROM, normal capillary refill. Absent: tenderness, pedal edema, joint swelling, calf tenderness Back exam: Present: normal inspection Neurological exam: Present: alert, oriented X3, CN II-XII intact Psychiatric exam: Present: normal affect, normal mood Course Vital Signs 03/10/18 14:19 Temperature 97.5 F L Pulse Rate 62 Respiratory 18 Rate Blood Pressure 109/62 O2 Sat by Pulse 98 Oximetry Medical Decision Making - Medical Decision Making 73 year old male with history of R inguinal pain after unable to reduce his hernia for 20 minutes, afterward he was able to reduce it. PAtient labs at this time are unremarkable. He has palpable hernia, no abdominal tenderness. Hernia self reduces. AT this time US groin shows reducible hernia with small amout of free fluid. Likely inflammatory. Patient has not vomited. Patient has passed gas since the tiem of the hernia protrusion. Discussed pt follow up with surgeon for elective hernia repair at this time. No concern for incarceration at this time. Discussed strict return parameters. . - Lab Data Result diagrams: 03/10/18 15:01 03/10/18 15:01 Lab Results 03/10/18 03/10/18 03/10/18 Range/Units 15: 15: 16:00 WBC 5.3 (3.8-10.6) k/uL RBC 4.00 L (4.30-5.90) m/uL Hgb 12.7 L (13.0-17.5) gm/dL Hct 36.7 L (39.0-53.0) % MCV 91.9 (80.0-100.0) fL MCH 31.8 (25.0-35.0) pg MCHC 34.6 (31.0-37.0) g/dL RDW 12.7 (11.5-15.5) % Plt Count 219 (150-450) k/uL Neutrophils % 58 % Lymphocytes % 19 % Monocytes % 11 % Eosinophils % 9 % Basophils % 1 % Neutrophils # 3.1 (1.3-7.7) k/uL Lymphocytes # 1.0 (1.0-4.8) k/uL Monocytes # 0.6 (0-1.0) k/uL Eosinophils # 0.5 (0-0.7) k/uL Basophils # 0.0 (0-0.2) k/uL Sodium 141 (137-145) mmol/L Potassium 4.2 (3.5-5.1) mmol/L Chloride 112 H (98-107) mmol/L Carbon Dioxide 24 (22-30) mmol/L Anion Gap 5 mmol/L BUN 24 H (9-20) mg/dL Creatinine 1.20 (0.66-1.25) mg/dL Est GFR (CKD-EPI)AfAm 70 (>60 ml/min/1.73 sqM) Est GFR (CKD-EPI)NonAf 60 (>60 ml/min/1.73 sqM) Glucose 94 (74-99) mg/dL Calcium 9.2 (8.4-10.2) mg/dL Total Bilirubin 0.8 (0.2-1.3) mg/dL AST 48 (17-59) U/L ALT 75 H (21-72) U/L Alkaline Phosphatase 90 (38-126) U/L Total Protein 6.2 L (6.3-8.2) g/dL Albumin 3.4 L (3.5-5.0) g/dL Urine Color Yellow Urine Appearance Clear (Clear) Urine pH 5.5 (5.0-8.0) Ur Specific [place] 1.017 (1.001-1.035) Urine Protein Negative (Negative) Urine Glucose (UA) Negative (Negative) Urine Ketones Negative (Negative) Urine Blood Negative (Negative) Urine Nitrite Negative (Negative) Urine Bilirubin Negative (Negative) Urine Urobilinogen <2.0 (<2.0) mg/dL Ur Leukocyte Esterase Negative (Negative) - Radiology Data Radiology results: report reviewed During the Valsalva Obvious protrusion occur between the iliac vessels and femoral head which represent possible and little hernia. Free fluid is seen medial to the hernia without. The area did regress. Suspect reducible right inguinal hernia. Disposition Clinical Impression: Reducible right inguinal hernia Disposition: HOME SELF-CARE Condition: Good Instructions: Inguinal Hernia (ED) Additional Instructions: Patient should increase fluids. Maybe take a stool softener and increase fluid with promoting normal bowel movements. Return to the emergency department if any alarming signs or symptoms occur including another protrusion of hernia or the fact that it would be a reducible. Is patient prescribed a controlled substance at d/c from ED?: No Referrals: Jun Bernal MD [Primary Care Provider] - 1-2 days Time of Disposition: 16:54
[2018-03-10 15:25] LABS: Basophils % (A) 1 %; Eosinophils # (A) 0.5 k/uL (0-0.7); Eosinophils % (A) 9 %; HCT 36.7 % (39.0-53.0); HGB 12.7 gm/dL (13.0-17.5); Lymphocytes % (A) 19 %; MCH 31.8 pg (25.0-35.0); MCHC 34.6 g/dL (31.0-37.0); MCV 91.9 fL (80.0-100.0); Mean Platelet Volume 7.7; Monocytes # (A) 0.6 k/uL (0-1.0); Monocytes % (A) 11 %; Neutrophils # (A) 3.1 k/uL (1.3-7.7); Neutrophils % (A) 58 %; Platelet Count 219 k/uL (150-450); RDW 12.7 % (11.5-15.5); WBC 5.3 k/uL (3.8-10.6)
[2018-03-10 15:31] LABS: Albumin 3.4 g/dL (3.5-5.0); Calcium 9.2 mg/dL (8.4-10.2); Potassium 4.2 mmol/L (3.5-5.1); Total Bilirubin 0.8 mg/dL (0.2-1.3); Total Protein 6.2 g/dL (6.3-8.2)
--- NOTE | 2018-03-10 15:50 | US ---
EXAMINATION TYPE: US groin RT DATE OF EXAM: 03/10/2018 COMPARISON: NONE CLINICAL HISTORY: Pain. Patient has known hernia for 5 years and has always been able to push hernia back in himself. Today he went to push and was painful and did not feel the same. During the valsalva maneuver an obvious protrusion occurred between the iliac vessels and the femoral head which represent a possible inguinal hernia. Free fluid was seen medial to hernia and w/o valsal va area did regress. IMPRESSION: Suspect reducible right inguinal hernia.
[2018-03-10 16:20] LABS: Appearance,Urine Clear (Clear); Bilirubin,Urine Negative (Negative); Blood,Urine Negative (Negative); Color,Urine Yellow; Glucose,Urine (UA) Negative (Negative); Ketones,Urine Negative (Negative); Leukocyte Esterase,Urine Negative (Negative); Nitrite,Urine Negative (Negative); PH, Urine 5.5 (5.0-8.0); Protein,Urine Negative (Negative); Specific Gravity,Urine 1.017 (1.001-1.035); Urobilinogen,Urine <2.0 mg/dL (<2.0)
== END 2018-03-10 17:20 | disposition home or self-care (01) ==
LOC: EC 14:18
DX: K40.90 Unilateral inguinal hernia, without obstruction or gangrene, not specified as recurrent (principal); E78.5 Hyperlipidemia, unspecified; I25.10 Atherosclerotic heart disease of native coronary artery without angina pectoris; N40.0 Benign prostatic hyperplasia without lower urinary tract symptoms; I25.2 Old myocardial infarction; Z79.82 Long term (current) use of aspirin; Z79.899 Other long term (current) drug therapy; Z91.041 Radiographic dye allergy status; Z85.528 Personal history of other malignant neoplasm of kidney; Z90.5 Acquired absence of kidney
CPT/HCPCS: 36415; 80053; 81003; 85025; 99284

== ENCOUNTER 2018-03-29 06:47 | Day surgery (SDC) | payer MEDICARE ==
[2018-03-27 09:38] VITALS: BMI 23.5
[~2018-03-29 06:47] MED LIST: ALPRAZolam 0.25 MG TAB PO PRN; ASPIRIN 325 MG TAB PO STA; SODIUM CHLORIDE 0.9% 1,000 ML in EMPTY BAG 1 BAG IV ONE
[2018-03-29] MEDS ORDERED: LIDOCAINE 1% INJ 10MG/ML (20 ML MDV) ONE (07:24)
[2018-03-29] MEDS ORDERED: MIDAZOLAM 2 MG/2 ML VIAL ONE (07:24)
[2018-03-29] MEDS ORDERED: fentaNYL (PF) 50 MCG/ML 2 ML AMP ONE (07:24)
[2018-03-29 07:27] VITALS: PULSE 68; TEMP 97.9
[2018-03-29] MEDS ORDERED: SODIUM CHLORIDE 0.9% 1,000 ML IV ONE (07:36)
[2018-03-29] MEDS ORDERED: fentaNYL (PF) 50 MCG/ML 2 ML AMP IV ONE (07:51)
[2018-03-29] MEDS ORDERED: MIDAZOLAM 2 MG/2 ML VIAL IVP ONE (07:51)
[2018-03-29] MEDS ORDERED: LIDOCAINE 1% INJ 10MG/ML (20 ML MDV) SQ ONE (07:52)
[2018-03-29] MEDS ORDERED: IOPAMIDOL-370 125ML BTL INJ ONE (08:15)
[2018-03-29] MEDS ORDERED: RX INFO: IV CONTRAST WAS GIVEN 1 EACH MISC MISCELLANE PRN (08:19)
[2018-03-29] MEDS ORDERED: SODIUM CHLORIDE 0.9% 1,000 ML IV SCH (08:30)
--- NOTE | 2018-03-29 08:58 | CC ---
CARDIAC CATHETERIZATION REPORT INDICATION: Known coronary artery disease, status post angioplasty of LAD. PROCEDURE NOTE: After obtaining informed consent, left heart catheterization and coronary angiogram were performed using standard Micaela catheters via the right femoral artery. The patient tolerated the procedure well without any obvious immediate complications. FINDINGS: HEMODYNAMICS: Left ventricular end-diastolic pressure is 6-8 mm there is no significant gradient across aortic valve. LEFT VENTRICULOGRAM: Left ventriculogram is not performed. ANGIOGRAPHIC DATA: 1. Left main coronary artery: Left main coronary artery is a normal-sized vessel and is free of stenosis. Divides into left anterior descending coronary artery and circumflex coronary artery. The previously stented segment within the proximal LAD appears patent. The distal LAD has a 50-60 percent stenosis. 2. Circumflex coronary artery is a codominant vessel, has a lesion within the ostial part of the circ and in the mid to distal part there is a focal 95% stenosis noted. 3. Right coronary artery is a large dominant vessel that has a focal stenosis of 80-90 percent as it bifurcates into PDA and PLV. The vessels are calcified. CONCLUSION: 1. Mcgrath 3-vessel coronary artery disease with patent stent within the left anterior descending coronary artery. 2. Severe stenosis involving the circumflex coronary artery and distal right coronary artery. PLAN: I reviewed angiographic data with Dr. Tineo who performed his LAD angioplasty. The plan at this stage is to get a surgical opinion regarding whether he is a candidate for surgery revascularizing both the right coronary artery and the circ and leave the LAD alone versus just fix the right coronary artery and leave the circumflex coronary artery in medical therapy. The patient has remained chest pain-free since his original event and has been doing well. I am going to ask cardiothoracic surgeon to evaluate the patient and the angiographic data and give their opinion and if they think he is not a surgical candidate, I am going to have Dr. Tineo perform angioplasty of the right coronary artery. I discussed these issues at length with the patient. He understands and is in agreement with the plans. The patient received moderate conscious sedation. Total sedation time was 18 minutes. Femoral angiogram was performed and Angio-Seal was deployed for hemostasis. MMODL / IJN: [id number] /
[2018-03-29 14:09] VITALS: RESP 20
--- NOTE | 2018-03-29 15:51 | P.GSCN ---
History of Present Illness Consult date: 03/29/18 Reason for Consult: Multivessel coronary artery disease, surgical recommendations. Requesting physician: Lamberto Martinez History of present illness: This is a 73-year-old active male patient who follows with Dr. Jun Bernal on an outpatient basis. He has a previous medical history of coronary artery disease with recent STEMI and placement of drug-eluting stent to the left anterior descending coronary artery, hypertension, hyperlipidemia, BPH, kidney cancer status post partial nephrectomy, and family history of premature coronary artery disease with his father dying from myocardial infarction at 50 years old. He is a lifelong nonsmoker. He presented to [facility] emergency room via EMS called from his primary care physician's office on 01/12/2018 with complaints of chest pain, associated with shortness of breath, diaphoresis, nausea, and lightheadedness as well as ST elevation on the EKG completed in his PCPs office. His troponins were elevated and he was ruled in for ST elevation myocardial infarction. He was taken emergently to the cardiac catheterization lab and was found to have critical disease in the proximal and mid LAD as well as a lesion in the distal LAD by the apex, ostial circumflex stenosis 70-80%, mid circumflex with a focal stenosis of 80-90%, and RCA stenosis of 80% at the bifurcation into the PDA and PLV. A drug-eluting stent was placed to the LAD and the patient was started on Brilinta. He had a transthoracic echocardiogram completed during that admission which demonstrated moderate global hypokinesis of the left ventricle with an ejection fraction of 30-35%, mild aortic insufficiency, mild mitral regurgitation, and mild tricuspid regurgitation. Once stable he was discharged to home with plans for future interventions. He does admit to continued exertional dyspnea since his heart attack. This morning he was brought back for an elective heart catheterization which demonstrated patent proximal LAD stent, distal LAD with 50-60% stenosis, lesion within the ostial circumflex and focal 95% stenosis in the mid to distal circumflex, and focal stenosis 80-90% in the right coronary artery as it bifurcates into the PDA and PLV. Dr. Esparza from cardiothoracic surgery was consulted regarding recommendations for coronary artery bypass graft surgery versus further stenting. Of note, the patient did have carotid Dopplers completed last month at the office of Dr. Martinez which demonstrated no significant stenosis to his bilateral internal carotid arteries. Review of Systems Review of systems was completed and was negative except as noted. - Cardiovascular Reports as per HPI, Reports dyspnea on exertion - Musculoskeletal Reports low back pain Past Medical History Past Medical History: Coronary Artery Disease (CAD), Cancer, GERD/Reflux, Hyperlipidemia, Myocardial Infarction ([place]) Additional Past Medical History / Comment(s): BPH, [place], ASCAD, Seasonal allergies , Bleeding gatric ulcer, [place] cancer, rt side hernia Last Myocardial Infarction Date:: 01/12/18 History of Any Multi-Drug Resistant Organisms: None Reported Past Surgical History: Tonsillectomy Additional Past Surgical History / Comment(s): Partial nephrectomy secondary to kidney cancer, vasectomy Past Anesthesia/Blood Transfusion Reactions: No Reported Reaction Additional Past Anesthesia/Blood Transfusion Reaction / Comm: Pt has received blood in past without reaction. Date of Last Stent Placement:: 01/12/18 Past Psychological History: No Psychological Hx Reported Smoking Status: Never smoker Past Alcohol Use History: None Reported Past Drug Use History: None Reported - Past Family History Mother Additional Family Medical History / Comment(s): Mother had polio and was paralyzed from her neck down. Father Family Medical History: Coronary Artery Disease (CAD), Myocardial Infarction ([place] ) Additional Family Medical History / Comment(s): Father of a [place] in his 50s. He was a heavy drinker and smoker. Sister(s) Family Medical History: Diabetes Mellitus Medications and Allergies Home Medications Medication Instructions Recorded Confirmed Type Aspirin EC [Ecotrin Low Dose] 81 mg PO HS 01/12/18 03/27/18 History Tamsulosin [Flomax] 0.4 mg PO Q48H 01/12/18 03/27/18 History Lisinopril [Zestril] 5 mg PO DAILY #30 tab 01/15/18 03/27/18 Rx Metoprolol Tartrate [Lopressor] 12.5 mg PO BID #60 tab 01/15/18 03/27/18 Rx Nitroglycerin Sl Tabs [Nitrostat] 0.4 mg SUBLINGUAL Q5M PRN #7 tab 01/15/1805/04 Rx Atorvastatin [Lipitor] 20 mg PO HS 03/10/18 03/27/18 History Clopidogrel Bisulfate [Plavix] 75 mg PO HS 03/27/18 03/29/18 History Allergies Allergy/AdvReac Type Severity Reaction Status Date / Time Iodinated Contrast- Oral and Allergy Unknown Verified 03/27/18 09:29 IV Dye Surgical - Exam Vital Signs Temp Pulse Resp BP Pulse Ox 97.9 F 68 20 111/63 95 03/29/18 07:25 03/29/18 07:25 03/29/18 07:25 03/29/18 07:25 03/29/18 07:25 - General well developed, well nourished, no distress, no pain - Eyes PERRL, normal ocular movement - ENT no hearing loss - Neck no masses, no bruits, trachea midline - Respiratory Lungs sounds clear bilaterally. Respirations even, nonlabored. Currently on room air with oxygen saturation 99%. No chest wall deformities. - Cardiovascular S1, S2 present. Regular rate and rhythm, sinus rhythm on telemetry. Palpable peripheral pulses bilaterally. No edema present. No calf pain or tenderness noted. No varicosities noted. Negative left Yariel's test. - Abdomen Abdomen: soft, non tender, bowel sounds - Genitourinary Deferred - Rectum Deferred - Integumentary Skin is warm and dry with evidence of good perfusion. no rash, no growths, no abnormal pigmentation - Neurologic normal coordination, normal sensation - Musculoskeletal normal gait, normal posture - Psychiatric oriented to time, oriented to person, oriented to place, speech is normal, memory intact Results - Imaging Additional studies: Cardiac catheterization films reviewed. Assessment and Plan (1) History of ST elevation myocardial infarction (STEMI) Current Visit: No Status: Resolved Code(s): I25.2 - OLD MYOCARDIAL INFARCTION SNOMED Code(s): 465671186080657 (2) CAD (coronary artery disease) Current Visit: Yes Status: Chronic Code(s): I25.10 - ATHSCL HEART DISEASE OF [place] CORONARY ARTERY W/O ANG PCTRS SNOMED Code(s): 84412556 (3) History of coronary artery stent placement Current Visit: Yes Status: Chronic Code(s): Z95.5 - PRESENCE OF CORONARY ANGIOPLASTY IMPLANT AND GRAFT SNOMED Code(s): 750438806 (4) Hypertension Current Visit: Yes Status: Chronic Code(s): I10 - ESSENTIAL (PRIMARY) HYPERTENSION SNOMED Code(s): 91098223 (5) Hyperlipidemia Current Visit: Yes Status: Chronic Code(s): E78.5 - HYPERLIPIDEMIA, UNSPECIFIED SNOMED Code(s): 98854545 (6) Family history of premature CAD Current Visit: Yes Status: Chronic Code(s): Z82.49 - FAMILY HX OF ISCHEM HEART DIS AND OTH DIS OF THE CIRC SYS SNOMED Code(s): 752168680 (7) BPH (benign prostatic hyperplasia) Current Visit: Yes Status: Chronic Code(s): N40.0 - BENIGN PROSTATIC HYPERPLASIA WITHOUT LOWER URINRY TRACT SYMP SNOMED Code(s): 177777139 (8) History of kidney cancer Current Visit: No Status: Resolved Code(s): Z85.528 - PERSONAL HISTORY OF OTHER MALIGNANT NEOPLASM OF KIDNEY SNOMED Code(s): 543686971 (9) History of partial nephrectomy Current Visit: Yes Status: Chronic Code(s): Z90.5 - ACQUIRED ABSENCE OF KIDNEY SNOMED Code(s): 615375541 Plan: The patient was seen and examined in the extended stay unit with Dr. Esparza. Chart/diagnostics were reviewed including heart catheterization films. Our recommendation is for coronary artery bypass graft surgery. Preoperative teaching was initiated, the usual surgical course was discussed in detail with the patient and his , all questions were answered to the best of our ability. Risks and benefits of surgery as well as alternative treatments were discussed and the patient gave informed consent to have bypass surgery. Preoperative testing was initiated. We would recommend continuing aspirin, statin, beta brian, MITCH inhibitor. Patient had been switched from Brilinta to Plavix due to cost, Plavix needs to be stopped one week prior to surgery and this was discussed with the patient and his . Our plan is for coronary artery bypass grafting surgery with left internal mammary artery, possible left radial artery, and endoscopic vein harvesting with intraoperative transesophageal echocardiogram to be scheduled for April 12 pending results of preoperative testing. This time frame was agreeable to the patient and his . Dr. Esparza will discuss our plan in detail with Dr. Martinez. Thank you Dr. Martinez for this consult. We look forward to working with you in the care of your patient. Time with Patient: Greater than 30
[2018-03-29 16:44] VITALS: BP 130/62
[2018-03-29 16:50] LABS: Appearance,Urine Clear (Clear); Bilirubin,Urine Negative (Negative); Blood,Urine Negative (Negative); Color,Urine Yellow; Glucose,Urine (UA) Negative (Negative); Ketones,Urine Negative (Negative); Leukocyte Esterase,Urine Negative (Negative); Nitrite,Urine Negative (Negative); PH, Urine 5.5 (5.0-8.0); Protein,Urine Negative (Negative); Specific Gravity,Urine 1.034 (1.001-1.035); Urobilinogen,Urine <2.0 mg/dL (<2.0)
[2018-03-29 16:56] LABS: Basophils % (A) 0 %; Eosinophils % (A) 0 %; HCT 40.3 % (39.0-53.0); HGB 12.7 gm/dL (13.0-17.5); Lymphocytes % (A) 5 %; MCH 30.2 pg (25.0-35.0); MCHC 31.5 g/dL (31.0-37.0); MCV 95.7 fL (80.0-100.0); Mean Platelet Volume 7.7; Monocytes % (A) 5 %; Neutrophils # (A) 17.1 k/uL (1.3-7.7); Neutrophils % (A) 89 %; Platelet Count 241 k/uL (150-450); RBC 4.21 m/uL (4.30-5.90); WBC 19.4 k/uL (3.8-10.6)
[2018-03-29 17:10] LABS: Albumin 3.8 g/dL (3.5-5.0); Calcium 9.3 mg/dL (8.4-10.2); Magnesium 2.2 mg/dL (1.6-2.3); Potassium 4.8 mmol/L (3.5-5.1); Total Bilirubin 0.6 mg/dL (0.2-1.3); Total Protein 6.6 g/dL (6.3-8.2)
[2018-03-29 17:11] LABS: Prothrombin Time 10.1 sec (9.0-12.0)
[2018-03-29 17:12] LABS: Partial Thromboplastin Time 22.1 sec (22.0-30.0)
--- NOTE | 2018-03-29 18:06 | XR ---
EXAMINATION TYPE: XR chest 2V DATE OF EXAM: 03/29/2018 COMPARISON: 01/12/2018 HISTORY: Preop TECHNIQUE: Frontal and lateral views of the chest are obtained. FINDINGS: There is no heart failure nor confluent pneumonic infiltrate. Heart size is normal. There are chest leads. Bony thorax is intact. IMPRESSION: Chest appears normal for age. No change.
[2018-03-30 04:02] LABS: Hepatitis A Antibody IgM Non-Reactive (Non-Reactive); Hepatitis B Core IgM Non-Reactive (Non-Reactive)
[2018-03-30 05:29] LABS: Hemoglobin A1C 5.7 % (4.0-6.0)
== END 2018-03-29 17:00 | disposition home or self-care (01) ==
LOC: CATHCVL 06:47
PROVIDERS: ATTEND Internal Medicine Cardiovascular Disease
DX: I25.110 Atherosclerotic heart disease of native coronary artery with unstable angina pectoris (principal); I65.23 Occlusion and stenosis of bilateral carotid arteries; Z95.5 Presence of coronary angioplasty implant and graft; E78.5 Hyperlipidemia, unspecified; Z82.49 Family history of ischemic heart disease and other diseases of the circulatory system; Z91.048 Other nonmedicinal substance allergy status; Z79.02 Long term (current) use of antithrombotics/antiplatelets; Z79.899 Other long term (current) drug therapy
CPT/HCPCS: 94150; 93458; 80061; 80053; 80074; 84443; 83735; 85025; 85610; 85730; 81003; 87070; 83036; 71046; 93930; 93970; 93923; C1760; C1894; C1769; J2250; J2001; J3010; Q9967

== ENCOUNTER → 2018-04-05 | Outpatient (CLI) | payer MEDICARE ==
[2018-04-05 11:01] LABS: Basophils % (A) 1 %; Eosinophils # (A) 0.4 k/uL (0-0.7); Eosinophils % (A) 6 %; HCT 36.9 % (39.0-53.0); HGB 12.7 gm/dL (13.0-17.5); Lymphocytes # (A) 1.1 k/uL (1.0-4.8); Lymphocytes % (A) 16 %; MCH 32.6 pg (25.0-35.0); MCHC 34.5 g/dL (31.0-37.0); MCV 94.3 fL (80.0-100.0); Mean Platelet Volume 7.9; Monocytes # (A) 0.6 k/uL (0-1.0); Monocytes % (A) 8 %; Neutrophils # (A) 4.9 k/uL (1.3-7.7); Neutrophils % (A) 68 %; Platelet Count 205 k/uL (150-450); RBC 3.91 m/uL (4.30-5.90); WBC 7.2 k/uL (3.8-10.6)
[2018-04-05 11:04] LABS: Calcium 9.3 mg/dL (8.4-10.2); Potassium 4.4 mmol/L (3.5-5.1)
[2018-04-05 13:34] LABS: Appearance,Urine Clear (Clear); Bilirubin,Urine Negative (Negative); Blood,Urine Negative (Negative); Color,Urine Yellow; Glucose,Urine (UA) Negative (Negative); Ketones,Urine Negative (Negative); Leukocyte Esterase,Urine Negative (Negative); Nitrite,Urine Negative (Negative); PH, Urine 5.5 (5.0-8.0); Protein,Urine Negative (Negative); Specific Gravity,Urine 1.018 (1.001-1.035); Urobilinogen,Urine <2.0 mg/dL (<2.0)
== END ==
LOC: LABPAT 13:09
PROVIDERS: ATTEND Surgery
DX: Z01.812 Encounter for preprocedural laboratory examination (principal); I25.10 Atherosclerotic heart disease of native coronary artery without angina pectoris
CPT/HCPCS: 80048; 81003; 85025; 87086

== ENCOUNTER 2018-04-12 06:36 | Inpatient (IN) | payer MEDICARE ==
[~2018-04-12 06:36] MED LIST changes: +ALBUMIN HUMAN 25% 50 ML IV ONE; +ALBUMIN HUMAN 5% 500 ML IVPB ONE; -ALPRAZolam 0.25 MG TAB PO PRN; +ASPIRIN 325 MG TAB PO ONE; -ASPIRIN 325 MG TAB PO STA; +ATORVASTATIN 10 MG TAB PO ONE; +CALCIUM CHLORIDE 100 MG/ML 10 ML SYRINGE IV ONE; +CHLORHEXIDINE GLUCONATE 15 ML CUP MUCOUS MEM ONE; +CLEVIDIPINE BUTYRATE 25 MG in EMPTY BAG 1 BAG IV ONE; +DEXTROSE 5% IN WATER 1,000 ML with POTASSIUM CHLORIDE 110 MEQ, MAGNESIUM SULFATE 16 MEQ... IV ONE; +DEXTROSE 5% IN WATER 1,000 ML with POTASSIUM CHLORIDE 25 MEQ, SODIUM CHLORIDE 2.5MEQ/ML... IRRIGATION ONE; +DILTIAZEM 50 MG in SODIUM CHLORIDE 0.9% 40 ML IV ONE; +HEPARIN SODIUM 1,000 UN/ML (10ML VL) IV ONE; +HEPARIN SODIUM,PORCINE 5,000 UNIT in SODIUM CHLORIDE 0.9% 500 ML IV ONE; +INSULIN REGULAR 100 UNIT in SODIUM CHLORIDE 0.9% 100 ML IV ONE; +LACTATED RINGERS 1,000 ML IV ONE; +MAGNESIUM SULFATE MG 500 MG/ML VIAL IV ONE; +MANNITOL 25% 12.5 GM/50 ML VIAL IV ONE; +METOPROLOL TARTRATE 12.5 MG TAB PO ONE; +NITROGLYCERIN-D5W PMX 25 MG/250 ML BTL IV ONE; +NITROGLYCERIN-D5W PMX 50 MG in DEXTROSE/WATER 1 250ML.BAG IV ONE; +NOREPINEPHRINE 4 MG in SODIUM CHLORIDE 0.9% 250 ML IV ONE; +PAPAVERINE 360 MG in SODIUM CHLORIDE 0.9% 90 ML IV ONE; +PHENYLEPHRINE 40 MG in SODIUM CHLORIDE 0.9% 250 ML IV ONE; +PHENYLEPHRINE-0.9% NACL SYG 1 MG/10 ML SYRINGE IV ONE; +PROPOFOL 1,000 MG/100 ML VIAL IV ONE; +PROTAMINE SULFATE 10 MG/ML 25 ML VIAL IV ONE; +PROTAMINE SULFATE 250 MG in EMPTY BAG 1 BAG IV ONE; +SODIUM BICARB 8.4% 50 ML SYR (1 MEQ/ML) IV ONE; +SODIUM CHLORIDE 0.9% 1,000 ML IV ONE; -SODIUM CHLORIDE 0.9% 1,000 ML in EMPTY BAG 1 BAG IV ONE; +TRANEXAMIC ACID 2,000 MG in SODIUM CHLORIDE 0.9% 180 ML IV ONE; +ceFAZolin 1,000 MG in SODIUM CHLORIDE 0.9% IRRIGATIO 1,000 ML IRRIGATION ONE; +ceFAZolin 2,000 MG in SODIUM CHLORIDE 0.9% 30 ML IVPB ONE; +ceFAZolin IN SWFI 2 GM/20 ML SYRINGE IVP ONE
[2018-04-12] MEDS ORDERED: VANCOMYCIN 1,000 MG VIAL MISCELLANE ONE (09:00)
[2018-04-12 09:07] LABS: Calcium 9.2 mg/dL (8.4-10.2); Potassium 4.4 mmol/L (3.5-5.1)
[2018-04-12] MEDS ORDERED: SODIUM CHLORIDE 0.9% 250 ML BAG ONE (10:04)
[2018-04-12] MEDS ORDERED: TRANEXAMIC ACID 1,000 MG/10 ML VIAL ONE (10:04)
[2018-04-12] MEDS ORDERED: HEPARIN SODIUM,PORCINE 10,000 UNIT/ML 1 ML VIAL ONE (10:04)
[2018-04-12] MEDS ORDERED: VECURONIUM 10 MG VIAL IV ONE (10:04)
[2018-04-12] MEDS ORDERED: PROPOFOL 10 MG/ML 20 ML VIAL IV ONE (10:04)
[2018-04-12] MEDS ORDERED: ALBUMIN HUMAN 5% 500 ML VIAL IVPB ONE (10:04)
[2018-04-12] MEDS ORDERED: fentaNYL (PF) 50 MCG/ML 2 ML AMP ONE (10:04)
[2018-04-12] MEDS ORDERED: SODIUM CHLORIDE 0.9% IRRIG 1,000 ML BTL IRRIGATION ONE (10:04)
[2018-04-12] MEDS ORDERED: PROTAMINE SULFATE 10 MG/ML 25 ML VIAL IV ONE (10:04)
[2018-04-12] MEDS ORDERED: MIDAZOLAM 2 MG/2 ML VIAL ONE (10:04)
[2018-04-12] MEDS ORDERED: LIDOCAINE 2% SYG (PF) 100 MG/5 ML ONE (10:04)
[2018-04-12] MEDS ORDERED: fentaNYL (PF) 50 MCG/ML 50 ML VIAL ONE (10:04)
[2018-04-12] MEDS ORDERED: ELECTROLYTE-R (PH 7.4) 1,000 ML IV.SOLN IV ONE (10:04)
[2018-04-12] MEDS ORDERED: PHENYLEPHRINE-0.9% NACL SYG 1 MG/10 ML SYRINGE ONE (10:04)
[2018-04-12 10:34] LABS: ABG Base Excess 0.4 mmol/L; ABG HCO3 24 mmol/L (21-25); ABG PCO2 34 mmHg (35-45); ABG PH 7.46 (7.35-7.45); ABG PO2 351 mmHg (83-108); ABG Potassium Whole Blood 4.3 mmol/L (3.4-4.5); ABG Sodium Whole Blood 141 mmol/L (135-146); ABG TCO2 25 mmol/L (19-24)
[2018-04-12] MEDS ORDERED: SODIUM CHLORIDE 0.9% 500 ML with HEPARIN SODIUM,PORCINE 5,000 UNIT IV ONE ×2 (11:25)
[2018-04-12 11:42] LABS: ABG Base Excess -1.8 mmol/L; ABG HCO3 25 mmol/L (21-25); ABG Oxygen Saturation 99.5 % (94-97); ABG PCO2 55 mmHg (35-45); ABG PH 7.28 (7.35-7.45); ABG PO2 264 mmHg (83-108); ABG Potassium Whole Blood 4.4 mmol/L (3.4-4.5); ABG Sodium Whole Blood 141 mmol/L (135-146); ABG TCO2 27 mmol/L (19-24)
--- NOTE | 2018-04-12 12:12 | P.PN ---
Progress Note - Text Progress Note Date: 04/05/18 5 meter walk test completed 04/05/18: #1 5.18 sec #2 5.10 sec #3 4.66 sec STS risk score was calculated and discussed with the patient and his .
[2018-04-12 12:18] LABS: ABG Base Excess -1.9 mmol/L; ABG HCO3 23 mmol/L (21-25); ABG PCO2 41 mmHg (35-45); ABG PH 7.36 (7.35-7.45); ABG Potassium Whole Blood 5.7 mmol/L (3.4-4.5); ABG Sodium Whole Blood 135 mmol/L (135-146); ABG TCO2 25 mmol/L (19-24)
[2018-04-12 12:44] LABS: ABG Base Excess -2.8 mmol/L; ABG HCO3 22 mmol/L (21-25); ABG PCO2 39 mmHg (35-45); ABG PH 7.37 (7.35-7.45); ABG Potassium Whole Blood 4.5 mmol/L (3.4-4.5); ABG Sodium Whole Blood 136 mmol/L (135-146); ABG TCO2 24 mmol/L (19-24)
[2018-04-12 13:14] LABS: ABG Base Excess -2.8 mmol/L; ABG HCO3 22 mmol/L (21-25); ABG PCO2 40 mmHg (35-45); ABG PH 7.36 (7.35-7.45); ABG PO2 374 mmHg (83-108); ABG Sodium Whole Blood 136 mmol/L (135-146); ABG TCO2 24 mmol/L (19-24)
[2018-04-12 14:21] LABS: ABG Base Excess -3.8 mmol/L; ABG HCO3 21 mmol/L (21-25); ABG Oxygen Saturation 99.8 % (94-97); ABG PCO2 37 mmHg (35-45); ABG PH 7.36 (7.35-7.45); ABG PO2 215 mmHg (83-108); ABG Potassium Whole Blood 3.5 mmol/L (3.4-4.5); ABG Sodium Whole Blood 138 mmol/L (135-146); ABG TCO2 22 mmol/L (19-24)
[2018-04-12 14:42] LABS: ABG PO2 >420 mmHg (83-108)
[2018-04-12 14:43] LABS: ABG PO2 >420 mmHg (83-108)
[2018-04-12] MEDS ORDERED: Potassium Replacement Protocol 1 EACH MISC MISCELLANE PRN (15:04)
[2018-04-12] MEDS ORDERED: Phosphorus Replacement Protoco 1 EACH MISC MISCELLANE PRN (15:04)
[2018-04-12] MEDS ORDERED: IPRATROPIUM-ALBUTEROL 3 ML NEB INHALATION PRN (15:04)
[2018-04-12] MEDS ORDERED: BENZOCAINE/MENTHOL LOZENG 1 EACH LOZENGE MUCOUS MEM PRN (15:04)
[2018-04-12] MEDS ORDERED: METOCLOPRAMIDE 5 MG/ML 2 ML VIAL IVP PRN (15:04)
[2018-04-12] MEDS ORDERED: CALCIUM CHLORIDE 1,000 MG in SODIUM CHLORIDE 0.9% 100 ML IV PRN (15:04)
[2018-04-12] MEDS ORDERED: ONDANSETRON 4 MG/2 ML VIAL IVP PRN (15:04)
[2018-04-12] MEDS ORDERED: PROPOFOL 1,000 MG in EMPTY BAG 1 BAG IV SCH (15:04)
[2018-04-12] MEDS ORDERED: NITROGLYCERIN-D5W PMX 50 MG in DEXTROSE/WATER 1 250ML.BAG IV SCH (15:04)
[2018-04-12] MEDS ORDERED: Magnesium Replacement Protocol 1 EACH MISC MISCELLANE PRN (15:04)
[2018-04-12] MEDS ORDERED: DEXTROSE 5% IN WATER 100 ML with AMIODARONE 150 MG IV PRN (15:04)
[2018-04-12] MEDS ORDERED: INSULIN REGULAR 100 UNIT in SODIUM CHLORIDE 0.9% 100 ML IV SCH (15:15)
[2018-04-12 15:40] LABS: Glucose,Whole Blood 95 mg/dL (75-99)
[2018-04-12 15:51] LABS: Ionized Calcium 4.9 mg/dL (4.5-5.3)
[2018-04-12 15:56] LABS: ABG Base Excess -3.7 mmol/L; ABG HCO3 23 mmol/L (21-25); ABG PCO2 48 mmHg (35-45); ABG PH 7.29 (7.35-7.45); ABG PO2 365 mmHg (83-108); ABG TCO2 24 mmol/L (19-24)
[2018-04-12 15:56] LABS: Basophils % (A) 0 %; Eosinophils # (A) 0.1 k/uL (0-0.7); Eosinophils % (A) 1 %; HCT 23.1 % (39.0-53.0); Lymphocytes # (A) 0.6 k/uL (1.0-4.8); Lymphocytes % (A) 7 %; MCH 32.8 pg (25.0-35.0); MCHC 33.9 g/dL (31.0-37.0); MCV 96.8 fL (80.0-100.0); Mean Platelet Volume 8.7; Monocytes # (A) 0.5 k/uL (0-1.0); Monocytes % (A) 6 %; Neutrophils # (A) 6.9 k/uL (1.3-7.7); Neutrophils % (A) 84 %; RBC 2.39 m/uL (4.30-5.90); RDW 13.2 % (11.5-15.5); WBC 8.2 k/uL (3.8-10.6)
[2018-04-12 15:57] LABS: HGB 7.8 gm/dL (13.0-17.5)
[2018-04-12 15:58] LABS: Platelet Count 81 k/uL (150-450)
[2018-04-12] MEDS: IPRATROPIUM-ALBUTEROL 3 ML NEB INHALATION SCH ×3 (15:59→19:28)
[2018-04-12 16:03] LABS: Glucose,Whole Blood 90 mg/dL (75-99)
--- NOTE | 2018-04-12 16:03 | XR ---
EXAMINATION TYPE: XR chest 1V portable DATE OF EXAM: 04/12/2018 HISTORY: Post Op CABG COMPARISON: NONE TECHNIQUE: Single view of the chest is submitted. FINDINGS: Endotracheal tube, NG tube, SG catheter, mediastinal drains and chest tubes are appropriately placed. Post operative changes of CABG. No sizeable pneumothorax. Scattered Pleural-parencymal opacities may reflect atelectasis. The heart is not enlarged. IMPRESSION: 1. Post operative changes of CABG.
[2018-04-12 16:08] LABS: ALT 28 U/L (21-72); AST 25 U/L (17-59); Albumin 2.2 g/dL (3.5-5.0); Alkaline Phosphatase 29 U/L (38-126); Anion Gap 5 mmol/L; Blood Urea Nitrogen 19 mg/dL (9-20); Calcium 7.4 mg/dL (8.4-10.2); Carbon Dioxide 23 mmol/L (22-30); Chloride 112 mmol/L (98-107); Glucose 77 mg/dL (74-99); Magnesium 2.4 mg/dL (1.6-2.3); Sodium 140 mmol/L (137-145); Total Bilirubin 0.5 mg/dL (0.2-1.3); Total Protein 3.9 g/dL (6.3-8.2)
[2018-04-12 16:12] LABS: INR 1.5 (<1.2); Partial Thromboplastin Time 39.7 sec (22.0-30.0); Prothrombin Time 14.1 sec (9.0-12.0)
[2018-04-12] MEDS: LACTATED RINGERS 1,000 ML IV SCH (16:34)
[2018-04-12] MEDS: CLEVIDIPINE BUTYRATE 25 MG in EMPTY BAG 1 BAG IV SCH (16:41)
[2018-04-12 17:06] LABS: Glucose,Whole Blood 120 mg/dL (75-99)
[2018-04-12] MEDS: ACETAMINOPHEN IV (For NPO) 1,000 MG in EMPTY BAG 1 BAG IVPB SCH (17:40)
[2018-04-12] MEDS: ceFAZolin IN SWFI 2 GM/20 ML SYRINGE IVP SCH (17:54)
[2018-04-12 18:04] LABS: Glucose,Whole Blood 142 mg/dL (75-99)
[2018-04-12 18:29] LABS: ABG Base Excess -4.9 mmol/L; ABG HCO3 21 mmol/L (21-25); ABG Oxygen Saturation 99.6 % (94-97); ABG PCO2 39 mmHg (35-45); ABG PH 7.34 (7.35-7.45); ABG PO2 144 mmHg (83-108); ABG TCO2 22 mmol/L (19-24)
[2018-04-12 18:45] LABS: Basophils % (A) 0 %; Eosinophils % (A) 0 %; HCT 22.5 % (39.0-53.0); HGB 7.6 gm/dL (13.0-17.5); Lymphocytes # (A) 0.4 k/uL (1.0-4.8); Lymphocytes % (A) 6 %; MCHC 33.7 g/dL (31.0-37.0); MCV 94.9 fL (80.0-100.0); Mean Platelet Volume 8.1; Monocytes # (A) 0.5 k/uL (0-1.0); Monocytes % (A) 6 %; Neutrophils # (A) 6.5 k/uL (1.3-7.7); Neutrophils % (A) 86 %; RBC 2.37 m/uL (4.30-5.90); RDW 13.1 % (11.5-15.5); WBC 7.6 k/uL (3.8-10.6)
[2018-04-12 18:50] LABS: Glucose,Whole Blood 129 mg/dL (75-99)
[2018-04-12 18:50] LABS: Platelet Count 76 k/uL (150-450)
[2018-04-12] MEDS ORDERED: fentaNYL (PF) 50 MCG/ML 2 ML AMP IVP SCH (19:00)
[2018-04-12] MEDS ORDERED: fentaNYL (PF) 50 MCG/ML 2 ML AMP IVP PRN ×2 (19:06→19:07)
[2018-04-12 20:10] LABS: Glucose,Whole Blood 150 mg/dL (75-99)
[2018-04-12 20:35] LABS: Basophils % (A) 0 %; Eosinophils % (A) 0 %; HCT 23.5 % (39.0-53.0); HGB 7.8 gm/dL (13.0-17.5); Lymphocytes # (A) 0.4 k/uL (1.0-4.8); Lymphocytes % (A) 5 %; MCH 31.6 pg (25.0-35.0); MCHC 33.3 g/dL (31.0-37.0); MCV 94.8 fL (80.0-100.0); Mean Platelet Volume 9.5; Monocytes # (A) 0.5 k/uL (0-1.0); Monocytes % (A) 6 %; Neutrophils # (A) 6.5 k/uL (1.3-7.7); Neutrophils % (A) 87 %; RBC 2.48 m/uL (4.30-5.90); WBC 7.4 k/uL (3.8-10.6)
[2018-04-12 20:36] LABS: Platelet Count 85 k/uL (150-450)
[2018-04-12] MEDS: ALBUMIN HUMAN 5% 250 ML in EMPTY BAG 1 BAG IVPB PRN (20:44)
[2018-04-12] MEDS: HEPARIN SODIUM,PORCINE 5,000 UNIT/ML 1 ML VIAL SQ SCH (20:55)
[2018-04-12 21:03] LABS: Glucose,Whole Blood 155 mg/dL (75-99)
[2018-04-12] MEDS ORDERED: MUPIROCIN 2% OINT 22 GM TUBE NASAL ONE (21:15)
[2018-04-12] MEDS: MUPIROCIN 2% OINT 22 GM TUBE NASAL SCH (21:58)
[2018-04-12 22:12] LABS: Glucose,Whole Blood 141 mg/dL (75-99)
[2018-04-12 23:03] LABS: Glucose,Whole Blood 135 mg/dL (75-99)
[2018-04-12 23:05] LABS: Calcium 7.9 mg/dL (8.4-10.2); Potassium 4.4 mmol/L (3.5-5.1)
[2018-04-13 00:05] LABS: Glucose,Whole Blood 128 mg/dL (75-99)
[2018-04-13] MEDS: ACETAMINOPHEN IV (For NPO) 1,000 MG in EMPTY BAG 1 BAG IVPB SCH ×4 (00:09→18:58)
[2018-04-13 00:56] LABS: Glucose,Whole Blood 132 mg/dL (75-99)
[2018-04-13] MEDS: ceFAZolin IN SWFI 2 GM/20 ML SYRINGE IVP SCH ×2 (01:05→10:39)
[2018-04-13 02:08] LABS: Glucose,Whole Blood 125 mg/dL (75-99)
[2018-04-13 02:58] LABS: Glucose,Whole Blood 123 mg/dL (75-99)
[2018-04-13 04:06] LABS: Glucose,Whole Blood 125 mg/dL (75-99)
[2018-04-13 05:05] LABS: Basophils % (A) 0 %; Eosinophils % (A) 0 %; Lymphocytes # (A) 0.5 k/uL (1.0-4.8); Lymphocytes % (A) 7 %; MCH 31.9 pg (25.0-35.0); MCHC 33.2 g/dL (31.0-37.0); MCV 96.1 fL (80.0-100.0); Mean Platelet Volume 8.3; Monocytes # (A) 0.5 k/uL (0-1.0); Monocytes % (A) 6 %; Neutrophils # (A) 6.3 k/uL (1.3-7.7); Neutrophils % (A) 85 %; Platelet Count 89 k/uL (150-450); RBC 2.07 m/uL (4.30-5.90); RDW 13.4 % (11.5-15.5); WBC 7.4 k/uL (3.8-10.6)
[2018-04-13 05:11] LABS: Glucose,Whole Blood 125 mg/dL (75-99)
[2018-04-13 05:12] LABS: INR 1.3 (<1.2); Partial Thromboplastin Time 32.2 sec (22.0-30.0); Prothrombin Time 12.2 sec (9.0-12.0)
[2018-04-13 05:14] LABS: HGB 6.6 gm/dL (13.0-17.5)
[2018-04-13 05:15] LABS: HCT 19.9 % (39.0-53.0)
[2018-04-13 05:16] LABS: Albumin 2.6 g/dL (3.5-5.0); Calcium 7.8 mg/dL (8.4-10.2); Phosphorus 2.6 mg/dL (2.5-4.5); Potassium 4.6 mmol/L (3.5-5.1); Total Bilirubin 1.1 mg/dL (0.2-1.3); Total Protein 4.2 g/dL (6.3-8.2)
[2018-04-13] MEDS: ALBUMIN HUMAN 5% 250 ML in EMPTY BAG 1 BAG IVPB PRN ×3 (05:35→06:49)
[2018-04-13 07:05] LABS: Glucose,Whole Blood 115 mg/dL (75-99)
--- NOTE | 2018-04-13 07:48 | P.CNPUL ---
History of Present Illness Consult date: 04/13/18 Reason for consult: other Chief complaint: Status post four-vessel bypass grafting, postoperative day #1 History of present illness: Pulmonary consultation dated 04/13/2018 This is a 73-year-old male who is postop day #1 status post four-vessel bypass grafting. The patient is currently doing relatively well and he was extubated within the 4-6 hour timeframe. Currently he is on O2 at between 2-4 L/m. He is getting lactated Ringer's at 50 mL an hour and insulin drip at less than 1 unit per hour and he was on nitroglycerin but that has been turned off. His chest x-ray shows some bibasilar atelectasis and small bilateral effusions and postoperative changes. He does have a previous history of CAD with a recent ST segment elevation myocardial infarction and placement of a drug-eluting stent to the left anterior descending coronary artery. He also has a history of hypertension hyperlipidemia BPH kidney cancer, status post partial nephrectomy and a family history of CAD. The patient presented to the primary care physician's office on January 12 with complaints of chest pain shortness of breath sweats nausea and lightheadedness as well as an ST elevation on EKG. Subsequent evaluation revealed significant CAD. Again the patient had surgery yesterday and is doing very well today. The patient really has no complaints although apparently this morning had a near syncopal episode so he is back in bed. This is why the nitroglycerin was turned off. The patient apparently has a history of never having used tobacco products. No significant alcohol or illicit drug use either. Review of Systems A 14 point review of system is positive for some lightheadedness from this recent near syncopal episode. The patient also has some pain at the surgical site. Other than that, the patient is doing relatively well. Past Medical History Past Medical History: Coronary Artery Disease (CAD), Cancer, GERD/Reflux, Hyperlipidemia, Hypertension, Myocardial Infarction (VT) Additional Past Medical History / Comment(s): BPH, VT, ASCAD, Seasonal allergies , Bleeding gastric ulcer, Kidney cancer, rt side inguinal hernia currently- sometimes protruded-needs to have surgery Last Myocardial Infarction Date:: 01/12/18 History of Any Multi-Drug Resistant Organisms: None Reported Past Surgical History: Heart Catheterization With Stent, Tonsillectomy Additional Past Surgical History / Comment(s): Partial nephrectomy secondary to kidney cancer, vasectomy Past Anesthesia/Blood Transfusion Reactions: No Reported Reaction Additional Past Anesthesia/Blood Transfusion Reaction / Comment(s): Pt has received blood in past without reaction. Date of Last Stent Placement:: 01/12/18 Smoking Status: Never smoker - Past Family History Mother Additional Family Medical History / Comment(s): Mother had polio and was paralyzed from her neck down. Father Family Medical History: Coronary Artery Disease (CAD), Myocardial Infarction (VT ) Additional Family Medical History / Comment(s): Father of a VT in his 50s. He was a heavy drinker and smoker. Sister(s) Family Medical History: Diabetes Mellitus Medications and Allergies Home Medications Medication Instructions Recorded Confirmed Type Aspirin EC [Ecotrin Low Dose] 81 mg PO HS 01/12/18 04/12/18 History Tamsulosin [Flomax] 0.4 mg PO Q48H 01/12/18 04/12/18 History Lisinopril [Zestril] 5 mg PO DAILY #30 tab 01/15/18 04/12/18 Rx Metoprolol Tartrate [Lopressor] 12.5 mg PO BID #60 tab 01/15/18 04/12/18 Rx Nitroglycerin Sl Tabs [Nitrostat] 0.4 mg SUBLINGUAL Q5M PRN #7 tab 01/15/18 Rx Atorvastatin [Lipitor] 20 mg PO HS 03/10/18 04/12/18 History Clopidogrel Bisulfate [Plavix] 75 mg PO HS 03/27/18 04/12/18 History Allergies Allergy/AdvReac Type Severity Reaction Status Date / Time Iodinated Contrast- Oral and Allergy Unknown Verified 04/12/18 14:23 IV Dye Physical Exam Osteopathic Statement: *. No significant issues noted on an osteopathic structural exam other than those noted in the History and Physical/Consult. Vitals: Vital Signs Temp Pulse Resp Pulse Ox 04/13/18 07:00 80 19 100 04/13/18 06:30 80 16 100 04/13/18 06:00 70 21 100 04/13/18 05:30 72 20 96 04/13/18 05:00 68 17 96 04/13/18 04:30 97.5 F L 66 22 96 04/13/18 04:00 72 23 96 04/13/18 03:30 69 18 97 04/13/18 03:00 70 15 97 04/13/18 02:30 66 22 97 04/13/18 02:00 67 20 96 04/13/18 01:30 67 17 97 04/13/18 01:00 68 15 97 04/13/18 00:30 70 17 98 04/13/18 00:00 70 16 98 04/12/18 23:30 69 15 95 04/12/18 23:05 70 18 98 04/12/18 23:00 74 20 98 04/12/18 22:30 74 17 96 04/12/18 22:00 78 20 97 04/12/18 21:30 76 13 97 04/12/18 21:00 77 14 99 04/12/18 20:30 80 22 94 L 04/12/18 20:00 80 18 96 04/12/18 19:44 78 04/12/18 19:30 80 16 97 04/12/18 19:00 79 15 97 04/12/18 18:30 72 14 99 04/12/18 18:00 74 15 99 04/12/18 17:30 72 15 100 04/12/18 17:00 72 16 99 04/12/18 16:30 73 14 100 04/12/18 16:15 73 04/12/18 16:03 71 04/12/18 16:00 71 16 99 04/12/18 15:31 69 15 100 Intake and Output 04/12/18 04/13/18 04/13/18 22:59 06:59 14:59 Intake Total 9970.517 3657.884 5.8 Output Total 1482 1305 Balance -55.478 250.884 5.8 Intake: IV 1410 1536 ACETAMINOPHEN IV (For NPO 100 100 ) 1,000 mg In Empty Bag 1 bag @ 400 mls/hr IVPB Q6HR [facility] Rx#:[id number] Albumin Human 5% 250 ml 250 In Empty Bag 1 bag @ 250 mls/hr IVPB Q1HR PRN Rx#: [id number] Albumin Human 5% 500 ml @ 500 750 Per Protocol IVPB ONCE ONE Rx#:[id number] Co/CI 190 230 Lactated Ringers 1,000 ml 350 400 @ 50 mls/hr IV .Q20H [facility] Rx#:[id number] Pressure Bag of 0.9 NaCl 36 ceFAZolin 2,000 mg In 20 20 Sodium Chloride 0.9% 30 ml @ Per Protocol IVPB ONCE ONE Rx#:[id number] Intake, IV Titration 16.522 19.884 5.8 Amount Clevidipine Butyrate 25 8.967 5.267 mg In Empty Bag 1 bag @ 1 MG/HR 2 mls/hr IV .Q24H [facility] Rx#:[id number] Insulin Regular 100 unit 3.700 14.617 5.8 In Sodium Chloride 0.9% 100 ml @ Per Protocol IV .Q0M [facility] Rx#:[id number] Propofol 1,000 mg In 3.855 Empty Bag 1 bag @ Titrate IV .Q0M [facility] Rx#: [id number] Output: Chest Tube Drainage 646 690 Chest Tube Left 296 500 Mediastinal 350 190 Urine 836 615 Other: Voiding Method Indwelling Catheter Indwelling Catheter Weight 68.3 kg ABP, PAP, CO, CI - Last 8 Hours Arterial Blood Pressure 103/40 Arterial Blood Pressure 100/41 Arterial Blood Pressure 91/41 Arterial Blood Pressure 118/37 Arterial Blood Pressure 128/45 Arterial Blood Pressure 115/43 Arterial Blood Pressure 113/46 Arterial Blood Pressure 133/46 Arterial Blood Pressure 122/44 Arterial Blood Pressure 123/47 Arterial Blood Pressure 124/50 Arterial Blood Pressure 141/53 Arterial Blood Pressure 140/51 Arterial Blood Pressure 132/50 Arterial Blood Pressure 126/46 Pulmonary Artery Pressure 29/15 Pulmonary Artery Pressure 29/14 Pulmonary Artery Pressure 25/13 Pulmonary Artery Pressure 23/10 Pulmonary Artery Pressure 19/10 Pulmonary Artery Pressure 21/7 Pulmonary Artery Pressure 22/12 Pulmonary Artery Pressure 22/9 Pulmonary Artery Pressure 21/9 Pulmonary Artery Pressure 24/12 Pulmonary Artery Pressure 23/11 Pulmonary Artery Pressure 24/11 Pulmonary Artery Pressure 25/13 Pulmonary Artery Pressure 28/12 Cardiac Output 3.6 Cardiac Output 3.5 Cardiac Output 4.7 Cardiac Output 4.7 Cardiac Output 4.9 Cardiac Output 5.3 Cardiac Index 2.0 Cardiac Index 1.9 Cardiac Index 2.6 Cardiac Index 2.6 Cardiac Index 2.7 Cardiac Index 2.9 No acute distress, oriented 3. Nasal O2 in place at 4 L/m. HEENT examination is grossly unremarkable. Mucous membranes are moist. No oral lesions. Neck supple. Full range of motion. No adenopathy thyromegaly or neck vein distention. Cardiovascular examination reveals regular rhythm rate. S1-S2 normal. No S3 or S4. No discernible murmur noted. Heart sounds are distant. Lungs reveal mostly clear breath sounds. There are a few scattered rhonchi. No wheezes or crackles. Her sounds are equal bilaterally. Abdomen soft bowel sounds are heard. No masses or tenderness. Extremities are intact. No cyanosis clubbing or edema. Skin is without rash or lesion. Neurologic examination is brief but nonfocal. Results - Laboratory Findings CBC and BMP: 04/13/18 04:30 04/13/18 04:30 ABG ABG pH 7.34 (7.35-7.45) L 04/12/18 18:25 ABG pCO2 39 mmHg (35-45) 04/12/18 18:25 ABG pO2 144 mmHg (83-108) H 04/12/18 18:25 ABG O2 Saturation 99.6 % (94-97) H 04/12/18 18:25 PT/INR, D-dimer PT 12.2 sec (9.0-12.0) H 04/13/18 04:30 INR 1.3 (<1.2) H 04/13/18 04:30 Abnormal lab findings: Abnormal Labs 04/05/18 04/12/18 04/12/18 10:35 08:15 10:37 RBC Hgb Hct Plt Count Lymphocytes # PT INR APTT ABG pH 7.46 H ABG pCO2 34 L ABG pO2 351 H ABG Total CO2 25 H ABG O2 Saturation 100.0 H ABG Hematocrit 33 L ABG Potassium ABG Ionized Calcium ABG Glucose ABG Lactic Acid Hemoglobin 10.8 L Chloride 112 H Carbon Dioxide BUN 27 H Creatinine 1.30 H Glucose POC Glucose (mg/dL) Calcium Magnesium Alkaline Phosphatase Total Protein Albumin Arterial Blood Potassium Arterial Blood Glucose Crossmatch See Detail 04/12/18 04/12/18 04/12/18 11:45 12:21 12:47 RBC Hgb Hct Plt Count Lymphocytes # PT INR APTT ABG pH 7.28 L ABG pCO2 55 H ABG pO2 264 H >420 H >420 H ABG Total CO2 27 H 25 H ABG O2 Saturation 99.5 H 100.0 H 100.0 H ABG Hematocrit 32 L 23 L 22 L ABG Potassium 5.7 H ABG Ionized Calcium 4.2 L 4.3 L ABG Glucose 119 H 206 H 194 H ABG Lactic Acid Hemoglobin 10.6 L 7.6 L 7.2 L Chloride Carbon Dioxide BUN Creatinine Glucose POC Glucose (mg/dL) Calcium Magnesium Alkaline Phosphatase Total Protein Albumin Arterial Blood Potassium 5.7 H Arterial Blood Glucose 119 H 206 H 194 H Crossmatch 04/12/18 04/12/18 04/12/18 13:17 13:17 15:39 RBC 2.39 L Hgb 7.8 L D Hct 23.1 L Plt Count 81 L D Lymphocytes # 0.6 L PT INR APTT ABG pH ABG pCO2 ABG pO2 374 H 215 H ABG Total CO2 ABG O2 Saturation 100.0 H 99.8 H ABG Hematocrit 23 L 27 L ABG Potassium ABG Ionized Calcium 4.2 L 4.3 L ABG Glucose 184 H 118 H ABG Lactic Acid 2.9 H* Hemoglobin 7.6 L 8.9 L Chloride Carbon Dioxide BUN Creatinine Glucose POC Glucose (mg/dL) Calcium Magnesium Alkaline Phosphatase Total Protein Albumin Arterial Blood Potassium Arterial Blood Glucose 184 H 118 H Crossmatch 04/12/18 04/12/18 04/12/18 15:39 15:39 15:54 RBC Hgb Hct Plt Count Lymphocytes # PT 14.1 H INR 1.5 H APTT 39.7 H ABG pH 7.29 L ABG pCO2 48 H ABG pO2 365 H ABG Total CO2 ABG O2 Saturation 100.0 H ABG Hematocrit ABG Potassium ABG Ionized Calcium ABG Glucose ABG Lactic Acid Hemoglobin Chloride 112 H Carbon Dioxide BUN Creatinine Glucose POC Glucose (mg/dL) Calcium 7.4 L Magnesium 2.4 H Alkaline Phosphatase 29 L Total Protein 3.9 L Albumin 2.2 L Arterial Blood Potassium Arterial Blood Glucose Crossmatch 04/12/18 04/12/18 04/12/18 17:03 17:21 18:03 RBC 2.37 L Hgb 7.6 L Hct 22.5 L Plt Count 76 L Lymphocytes # 0.4 L PT INR APTT ABG pH ABG pCO2 ABG pO2 ABG Total CO2 ABG O2 Saturation ABG Hematocrit ABG Potassium ABG Ionized Calcium ABG Glucose ABG Lactic Acid Hemoglobin Chloride Carbon Dioxide BUN Creatinine Glucose POC Glucose (mg/dL) 120 H 142 H Calcium Magnesium Alkaline Phosphatase Total Protein Albumin Arterial Blood Potassium Arterial Blood Glucose Crossmatch 04/12/18 04/12/18 04/12/18 18:25 18:48 20:10 RBC Hgb Hct Plt Count Lymphocytes # PT INR APTT ABG pH 7.34 L ABG pCO2 ABG pO2 144 H ABG Total CO2 ABG O2 Saturation 99.6 H ABG Hematocrit ABG Potassium ABG Ionized Calcium ABG Glucose ABG Lactic Acid Hemoglobin Chloride Carbon Dioxide BUN Creatinine Glucose POC Glucose (mg/dL) 129 H 150 H Calcium Magnesium Alkaline Phosphatase Total Protein Albumin Arterial Blood Potassium Arterial Blood Glucose Crossmatch 04/12/18 04/12/18 04/12/18 20:20 20:21 21:02 RBC 2.48 L Hgb 7.8 L Hct 23.5 L Plt Count 85 L Lymphocytes # 0.4 L PT INR APTT ABG pH ABG pCO2 ABG pO2 ABG Total CO2 ABG O2 Saturation ABG Hematocrit ABG Potassium ABG Ionized Calcium ABG Glucose ABG Lactic Acid Hemoglobin Chloride 111 H Carbon Dioxide 20 L BUN Creatinine Glucose 133 H POC Glucose (mg/dL) 155 H Calcium 7.9 L Magnesium Alkaline Phosphatase Total Protein Albumin Arterial Blood Potassium Arterial Blood Glucose Crossmatch 04/12/18 04/12/18 04/13/18 22:10 23:02 00:03 RBC Hgb Hct Plt Count Lymphocytes # PT INR APTT ABG pH ABG pCO2 ABG pO2 ABG Total CO2 ABG O2 Saturation ABG Hematocrit ABG Potassium ABG Ionized Calcium ABG Glucose ABG Lactic Acid Hemoglobin Chloride Carbon Dioxide BUN Creatinine Glucose POC Glucose (mg/dL) 141 H 135 H 128 H Calcium Magnesium Alkaline Phosphatase Total Protein Albumin Arterial Blood Potassium Arterial Blood Glucose Crossmatch 04/13/18 04/13/18 04/13/18 00:54 01:59 02:55 RBC Hgb Hct Plt Count Lymphocytes # PT INR APTT ABG pH ABG pCO2 ABG pO2 ABG Total CO2 ABG O2 Saturation ABG Hematocrit ABG Potassium ABG Ionized Calcium ABG Glucose ABG Lactic Acid Hemoglobin Chloride Carbon Dioxide BUN Creatinine Glucose POC Glucose (mg/dL) 132 H 125 H 123 H Calcium Magnesium Alkaline Phosphatase Total Protein Albumin Arterial Blood Potassium Arterial Blood Glucose Crossmatch 04/13/18 04/13/18 04/13/18 04:04 04:30 04:30 RBC 2.07 L Hgb 6.6 L* Hct 19.9 L* Plt Count 89 L Lymphocytes # 0.5 L PT 12.2 H INR 1.3 H APTT 32.2 H ABG pH ABG pCO2 ABG pO2 ABG Total CO2 ABG O2 Saturation ABG Hematocrit ABG Potassium ABG Ionized Calcium ABG Glucose ABG Lactic Acid Hemoglobin Chloride Carbon Dioxide BUN Creatinine Glucose POC Glucose (mg/dL) 125 H Calcium Magnesium Alkaline Phosphatase Total Protein Albumin Arterial Blood Potassium Arterial Blood Glucose Crossmatch 04/13/18 04/13/18 04/13/18 04:30 05:07 06:58 RBC Hgb Hct Plt Count Lymphocytes # PT INR APTT ABG pH ABG pCO2 ABG pO2 ABG Total CO2 ABG O2 Saturation ABG Hematocrit ABG Potassium ABG Ionized Calcium ABG Glucose ABG Lactic Acid Hemoglobin Chloride 111 H Carbon Dioxide BUN Creatinine Glucose 105 H POC Glucose (mg/dL) 125 H 115 H Calcium 7.8 L Magnesium Alkaline Phosphatase 28 L Total Protein 4.2 L Albumin 2.6 L Arterial Blood Potassium Arterial Blood Glucose Crossmatch - Diagnostic Findings Chest x-ray: report reviewed (Labs, x-rays, and medications are all reviewed.), image reviewed Assessment and Plan Assessment: Assessment Postop day #1, status post four-vessel bypass grafting Previous history of ST segment elevation myocardial infarction Postoperative ventilator management with extubation within the 4-6 hour window History of CAD with previous catheterization and stent placement History of hypertension History of hyperlipidemia History of kidney cancer with partial nephrectomy Lifelong nontobacco use History of BPH History of gastroesophageal reflux disease Plan: Plan dated 04/13/2018 White count of 7.4, hemoglobin 6.6, hematocrit 19.9 and platelet count 89,000. PT was 12.29 1.3 and PTT 32.2. Sodium and potassium are normal. Chlorides were 11. CO2, anion gap, BUN and creatinine are all normal. The patient remains on O2 at 2 L. The patient is getting lactated Ringer's at 50 mL an hour and insulin at less than 1 unit per hour. Chest x-ray shows postsurgical changes bibasilar atelectasis and small effusions. Cardiothoracic is yet to see the patient. Cardiology is not see the patient is yet either. We will continue to follow. We will recommend deep breathing coughing and clearing of secretions as well as hourly use of the incentive spirometer. Prognosis is generally thought to be good. Time with Patient: Greater than 30
[2018-04-13] MEDS: HEPARIN SODIUM,PORCINE 5,000 UNIT/ML 1 ML VIAL SQ SCH ×3 (08:00→22:03)
[2018-04-13 08:11] LABS: Glucose,Whole Blood 122 mg/dL (75-99)
[2018-04-13] MEDS: IPRATROPIUM-ALBUTEROL 3 ML NEB INHALATION SCH ×4 (08:16→20:10)
[2018-04-13 08:57] VITALS: BMI 23.6
[2018-04-13] MEDS ORDERED: FUROSEMIDE 10 MG/ML 2 ML VIAL IV ONE (09:00)
[2018-04-13] MEDS ORDERED: CALCIUM CHLORIDE 500 MG in SODIUM CHLORIDE 0.9% 50 ML IVPB ONE (09:00)
[2018-04-13] MEDS ORDERED: ASPIRIN 325 MG TAB PO SCH (09:00)
[2018-04-13] MEDS ORDERED: PANTOPRAZOLE 40 MG/10 ML VIAL IVP SCH (09:00)
--- NOTE | 2018-04-13 09:04 | XR ---
EXAMINATION TYPE: XR chest 1V portable DATE OF EXAM: 04/13/2018 Comparison: 04/12/2018 Clinical History: 73-year-old male Post Operative Cardiac Surgery Findings: Right IJ sheath with [place] catheter at the proximal right main pulmonary artery. Heart upper limi ts of normal in size. Median sternotomy wires are present. Possible superior mediastinal widening nikkie angel projectional related. Patchy bibasilar densities slightly increased. Possible trace left apical p neumothorax versus summation artifact. Impression: 1. Questionable trace left apical pneumothorax versus summation artifact. Attention on follow-up. 2. Accentuated appearance to the superior mediastinum may be projectional. Attention on follow-up. If patient with new or progressive chest pain, CT may be indicated. 3. Increasing patchy bibasilar atelectasis. Findings called to nurse Rangel on 6ICU at 8:58am.
[2018-04-13 09:22] LABS: Glucose,Whole Blood 115 mg/dL (75-99)
[2018-04-13] MEDS: ATORVASTATIN 40 MG TAB PO SCH (09:36)
[2018-04-13] MEDS: ASPIRIN 81 MG PO SCH (09:36)
[2018-04-13] MEDS: CLOPIDOGREL 75 MG TAB PO SCH (09:36)
[2018-04-13] MEDS: METOPROLOL TARTRATE 12.5 MG TAB PO SCH ×2 (09:37→21:04)
[2018-04-13] MEDS: MUPIROCIN 2% OINT 22 GM TUBE NASAL SCH ×2 (09:39→21:04)
[2018-04-13 10:09] LABS: Glucose,Whole Blood 117 mg/dL (75-99)
[2018-04-13 11:11] LABS: Glucose,Whole Blood 119 mg/dL (75-99)
--- NOTE | 2018-04-13 11:28 | P.PN ---
Subjective Progress Note Date: 04/13/18 Principal diagnosis: Coronary artery disease. Previous medical history of recent STEMI with placement of drug-eluting stent to the left anterior descending coronary artery , hypertension, hyperlipidemia, BPH, kidney cancer status post partial nephrectomy, self reducible right sided inguinal hernia, and family history of premature coronary artery disease with his father dying from myocardial infarction 50 years old. POD #1 coronary artery bypass grafting 4, left internal mammary artery to the left anterior descending artery, reverse saphenous vein graft to the obtuse marginal artery, reverse saphenous vein graft to the posterior descending artery , reverse saphenous vein graft to the diagonal artery, endoscopic vein harvesting of the left greater saphenous vein, intraoperative transesophageal echocardiogram. Postoperative acute blood loss anemia, an expected outcome of surgery given hemodilution and the use of cardiopulmonary bypass pump. Patient's currently sitting up in bed in no acute distress. Does complain of sternal pain which is controlled with current pain medication. Denies shortness of breath. Patient is currently hemodynamically stable on no vasopressors. Hemoglobin is a bit low at 6.6 and patient will receive 1 unit packed red blood cells. He did have an episode this morning where he became pale and diaphoretic with hypotension and bradycardia upon sitting up to the bedside for the first time, resolved quickly once placed back in bed and albumin was given. Objective - Vital Signs Vital signs: Vital Signs Temp 36.5 F L 04/13/18 08:00 Pulse 78 04/13/18 10:00 Resp 17 04/13/18 10:00 BP 93/53 04/12/18 07:10 Pulse Ox 96 04/13/18 10:00 Intake & Output 04/12/18 04/13/18 04/13/18 18:59 06:59 18:59 Intake Total 099.261 5410.243 379.125 Output Total 4452 2009 Balance -3571.837 94.243 164.125 Weight 68.3 kg 68.3 kg Intake: IV 872 2076 370 ACETAMINOPHEN IV (For NPO 100 100 100 ) 1,000 mg In Empty Bag 1 bag @ 400 mls/hr IVPB Q6HR EMMA Rx#:[id number] Albumin Human 5% 250 ml 250 In Empty Bag 1 bag @ 250 mls/hr IVPB Q1HR PRN Rx#: [id number] Albumin Human 5% 500 ml @ 500 750 Per Protocol IVPB ONCE ONE Rx#:[id number] Co/CI 100 320 60 Lactated Ringers 1,000 ml 150 600 180 @ 20 mls/hr IV .Q24H EMMA Rx#:[id number] Pressure Bag of 0.9 NaCl 36 30 ceFAZolin 2,000 mg In 20 20 Sodium Chloride 0.9% 30 ml @ Per Protocol IVPB ONCE ONE Rx#:[id number] Intake, IV Titration 8.163 28.243 9.125 Amount Clevidipine Butyrate 25 3.133 11.101 mg In Empty Bag 1 bag @ 1 MG/HR 2 mls/hr IV .Q24H EMMA Rx#:[id number] Insulin Regular 100 unit 1.175 17.142 9.125 In Sodium Chloride 0.9% 100 ml @ Per Protocol IV .Q0M EMMA Rx#:[id number] Propofol 1,000 mg In 3.855 Empty Bag 1 bag @ Titrate IV .Q0M EMMA Rx#: [id number] Output: Chest Tube Drainage 426 910 110 Chest Tube Left 176 620 110 Mediastinal 250 290 0 Urine 1526 1100 105 Estimated Blood Loss 2500 Other: Voiding Method Indwelling Catheter Indwelling Catheter Indwelling Catheter ABP, PAP, CO, CI - Last Documented Arterial Blood Pressure 148/51 Pulmonary Artery Pressure 28/13 Cardiac Output 5.2 Cardiac Index 2.8 - Constitutional General appearance: Present: cooperative, no acute distress - Respiratory Details: Lungs sounds was bilaterally. Respirations even, nonlabored. Currently on 2 L nasal cannula with oxygen saturation 96%. Only able to achieve 500 mL on his incentive spirometry. Weak cough. Mediastinal chest tube to continuous wall suction, 190 mL serosanguineous drainage overnight, 650 mL since surgery. Left pleural chest tube to continuous wall suction, 500 mL serosanguineous drainage overnight, 950 mL since surgery. No air leaks present. - Cardiovascular Details: S1, S2 present. Regular rate and rhythm, sinus rhythm on telemetry. Sternum stable. Ventricular epicardial pacemaker wires present, connected to generator , VVI mode with backup rate 50 bpm. Palpable peripheral pulses bilaterally. No edema present. No calf pain or tenderness noted. Right internal jugular Story/Cordis, right radial arterial line present. Last CO/CI 5.2/5.8 on no inotropes. Heart hugger placed patient demonstrating appropriate use. Antiembolism stockings, SCDs present. - Gastrointestinal Gastrointestinal Comment(s): Abdomen soft, nontender, nondistended. Hypoactive bowel sounds present 4 quadrants. Tolerating clear liquids. Negative flatus. - Genitourinary Genitourinary Comment(s): Kiran present draining clear, yellow urine. Output 40-115 mL/h overnight, 615 mL in 8 hours - Integumentary Integumentary Comment(s): Skin is warm and dry with evidence of good perfusion. Anterior chest incision well approximated and covered with dry intact dressing, left lower extremity EVH site well approximated. - Neurologic Neurologic: Present: CNII-XII intact - Musculoskeletal Musculoskeletal: Present: strength equal bilaterally - Psychiatric Psychiatric: Present: A&O x's 3, appropriate affect, intact judgment & insight - Allied health notes Allied health notes reviewed: nursing - Labs CBC & Chem 7: 04/13/18 04:30 04/13/18 04:30 Labs: Abnormal Lab Results - Last 24 Hours (Table) 04/05/18 04/12/18 04/12/18 Range/Units 10:35 11:45 12:21 RBC (4.30-5.90) m/uL Hgb (13.0-17.5) gm/dL Hct (39.0-53.0) % Plt Count (150-450) k/uL Lymphocytes # (1.0-4.8) k/uL PT (9.0-12.0) sec INR (<1.2) APTT (22.0-30.0) sec ABG pH 7.28 L (7.35-7.45) ABG pCO2 55 H (35-45) mmHg ABG pO2 264 H >420 H (83-108) mmHg ABG Total CO2 27 H 25 H (19-24) mmol/L ABG O2 Saturation 99.5 H 100.0 H (94-97) % ABG Hematocrit 32 L 23 L (34.0-46.0) % ABG Potassium 5.7 H (3.4-4.5) mmol/L ABG Ionized Calcium 4.2 L (4.5-5.3) mg/dL ABG Glucose 119 H 206 H (75-99) mg/dL ABG Lactic Acid (0.5-1.6) mmol/L Hemoglobin 10.6 L 7.6 L (13.0-17.5) gm/dL Chloride (98-107) mmol/L Carbon Dioxide (22-30) mmol/L Glucose (74-99) mg/dL POC Glucose (mg/dL) (75-99) mg/dL Calcium (8.4-10.2) mg/dL Magnesium (1.6-2.3) mg/dL Alkaline Phosphatase (38-126) U/L Total Protein (6.3-8.2) g/dL Albumin (3.5-5.0) g/dL Arterial Blood Potassium 5.7 H (3.4-4.5) mmol/L Arterial Blood Glucose 119 H 206 H (75-99) mg/dL Crossmatch See Detail 04/12/18 04/12/18 04/12/18 Range/Units 12:47 13:17 13:17 RBC (4.30-5.90) m/uL Hgb (13.0-17.5) gm/dL Hct (39.0-53.0) % Plt Count (150-450) k/uL Lymphocytes # (1.0-4.8) k/uL PT (9.0-12.0) sec INR (<1.2) APTT (22.0-30.0) sec ABG pH (7.35-7.45) ABG pCO2 (35-45) mmHg ABG pO2 >420 H 374 H 215 H (83-108) mmHg ABG Total CO2 (19-24) mmol/L ABG O2 Saturation 100.0 H 100.0 H 99.8 H (94-97) % ABG Hematocrit 22 L 23 L 27 L (34.0-46.0) % ABG Potassium (3.4-4.5) mmol/L ABG Ionized Calcium 4.3 L 4.2 L 4.3 L (4.5-5.3) mg/dL ABG Glucose 194 H 184 H 118 H (75-99) mg/dL ABG Lactic Acid 2.9 H* (0.5-1.6) mmol/L Hemoglobin 7.2 L 7.6 L 8.9 L (13.0-17.5) gm/dL Chloride (98-107) mmol/L Carbon Dioxide (22-30) mmol/L Glucose (74-99) mg/dL POC Glucose (mg/dL) (75-99) mg/dL Calcium (8.4-10.2) mg/dL Magnesium (1.6-2.3) mg/dL Alkaline Phosphatase (38-126) U/L Total Protein (6.3-8.2) g/dL Albumin (3.5-5.0) g/dL Arterial Blood Potassium (3.4-4.5) mmol/L Arterial Blood Glucose 194 H 184 H 118 H (75-99) mg/dL Crossmatch 04/12/18 04/12/18 04/12/18 Range/Units 15:39 15:39 15:39 RBC 2.39 L (4.30-5.90) m/uL Hgb 7.8 L D (13.0-17.5) gm/dL Hct 23.1 L (39.0-53.0) % Plt Count 81 L D (150-450) k/uL Lymphocytes # 0.6 L (1.0-4.8) k/uL PT 14.1 H (9.0-12.0) sec INR 1.5 H (<1.2) APTT 39.7 H (22.0-30.0) sec ABG pH (7.35-7.45) ABG pCO2 (35-45) mmHg ABG pO2 (83-108) mmHg ABG Total CO2 (19-24) mmol/L ABG O2 Saturation (94-97) % ABG Hematocrit (34.0-46.0) % ABG Potassium (3.4-4.5) mmol/L ABG Ionized Calcium (4.5-5.3) mg/dL ABG Glucose (75-99) mg/dL ABG Lactic Acid (0.5-1.6) mmol/L Hemoglobin (13.0-17.5) gm/dL Chloride 112 H (98-107) mmol/L Carbon Dioxide (22-30) mmol/L Glucose (74-99) mg/dL POC Glucose (mg/dL) (75-99) mg/dL Calcium 7.4 L (8.4-10.2) mg/dL Magnesium 2.4 H (1.6-2.3) mg/dL Alkaline Phosphatase 29 L (38-126) U/L Total Protein 3.9 L (6.3-8.2) g/dL Albumin 2.2 L (3.5-5.0) g/dL Arterial Blood Potassium (3.4-4.5) mmol/L Arterial Blood Glucose (75-99) mg/dL Crossmatch 04/12/18 04/12/18 04/12/18 Range/Units 15:54 17:03 17:21 RBC 2.37 L (4.30-5.90) m/uL Hgb 7.6 L (13.0-17.5) gm/dL Hct 22.5 L (39.0-53.0) % Plt Count 76 L (150-450) k/uL Lymphocytes # 0.4 L (1.0-4.8) k/uL PT (9.0-12.0) sec INR (<1.2) APTT (22.0-30.0) sec ABG pH 7.29 L (7.35-7.45) ABG pCO2 48 H (35-45) mmHg ABG pO2 365 H (83-108) mmHg ABG Total CO2 (19-24) mmol/L ABG O2 Saturation 100.0 H (94-97) % ABG Hematocrit (34.0-46.0) % ABG Potassium (3.4-4.5) mmol/L ABG Ionized Calcium (4.5-5.3) mg/dL ABG Glucose (75-99) mg/dL ABG Lactic Acid (0.5-1.6) mmol/L Hemoglobin (13.0-17.5) gm/dL Chloride (98-107) mmol/L Carbon Dioxide (22-30) mmol/L Glucose (74-99) mg/dL POC Glucose (mg/dL) 120 H (75-99) mg/dL Calcium (8.4-10.2) mg/dL Magnesium (1.6-2.3) mg/dL Alkaline Phosphatase (38-126) U/L Total Protein (6.3-8.2) g/dL Albumin (3.5-5.0) g/dL Arterial Blood Potassium (3.4-4.5) mmol/L Arterial Blood Glucose (75-99) mg/dL Crossmatch 04/12/18 04/12/18 04/12/18 Range/Units 18:03 18:25 18:48 RBC (4.30-5.90) m/uL Hgb (13.0-17.5) gm/dL Hct (39.0-53.0) % Plt Count (150-450) k/uL Lymphocytes # (1.0-4.8) k/uL PT (9.0-12.0) sec INR (<1.2) APTT (22.0-30.0) sec ABG pH 7.34 L (7.35-7.45) ABG pCO2 (35-45) mmHg ABG pO2 144 H (83-108) mmHg ABG Total CO2 (19-24) mmol/L ABG O2 Saturation 99.6 H (94-97) % ABG Hematocrit (34.0-46.0) % ABG Potassium (3.4-4.5) mmol/L ABG Ionized Calcium (4.5-5.3) mg/dL ABG Glucose (75-99) mg/dL ABG Lactic Acid (0.5-1.6) mmol/L Hemoglobin (13.0-17.5) gm/dL Chloride (98-107) mmol/L Carbon Dioxide (22-30) mmol/L Glucose (74-99) mg/dL POC Glucose (mg/dL) 142 H 129 H (75-99) mg/dL Calcium (8.4-10.2) mg/dL Magnesium (1.6-2.3) mg/dL Alkaline Phosphatase (38-126) U/L Total Protein (6.3-8.2) g/dL Albumin (3.5-5.0) g/dL Arterial Blood Potassium (3.4-4.5) mmol/L Arterial Blood Glucose (75-99) mg/dL Crossmatch 04/12/18 04/12/18 04/12/18 Range/Units 20:10 20:20 20:21 RBC 2.48 L (4.30-5.90) m/uL Hgb 7.8 L (13.0-17.5) gm/dL Hct 23.5 L (39.0-53.0) % Plt Count 85 L (150-450) k/uL Lymphocytes # 0.4 L (1.0-4.8) k/uL PT (9.0-12.0) sec INR (<1.2) APTT (22.0-30.0) sec ABG pH (7.35-7.45) ABG pCO2 (35-45) mmHg ABG pO2 (83-108) mmHg ABG Total CO2 (19-24) mmol/L ABG O2 Saturation (94-97) % ABG Hematocrit (34.0-46.0) % ABG Potassium (3.4-4.5) mmol/L ABG Ionized Calcium (4.5-5.3) mg/dL ABG Glucose (75-99) mg/dL ABG Lactic Acid (0.5-1.6) mmol/L Hemoglobin (13.0-17.5) gm/dL Chloride 111 H (98-107) mmol/L Carbon Dioxide 20 L (22-30) mmol/L Glucose 133 H (74-99) mg/dL POC Glucose (mg/dL) 150 H (75-99) mg/dL Calcium 7.9 L (8.4-10.2) mg/dL Magnesium (1.6-2.3) mg/dL Alkaline Phosphatase (38-126) U/L Total Protein (6.3-8.2) g/dL Albumin (3.5-5.0) g/dL Arterial Blood Potassium (3.4-4.5) mmol/L Arterial Blood Glucose (75-99) mg/dL Crossmatch 04/12/18 04/12/18 04/12/18 Range/Units 21:02 22:10 23:02 RBC (4.30-5.90) m/uL Hgb (13.0-17.5) gm/dL Hct (39.0-53.0) % Plt Count (150-450) k/uL Lymphocytes # (1.0-4.8) k/uL PT (9.0-12.0) sec INR (<1.2) APTT (22.0-30.0) sec ABG pH (7.35-7.45) ABG pCO2 (35-45) mmHg ABG pO2 (83-108) mmHg ABG Total CO2 (19-24) mmol/L ABG O2 Saturation (94-97) % ABG Hematocrit (34.0-46.0) % ABG Potassium (3.4-4.5) mmol/L ABG Ionized Calcium (4.5-5.3) mg/dL ABG Glucose (75-99) mg/dL ABG Lactic Acid (0.5-1.6) mmol/L Hemoglobin (13.0-17.5) gm/dL Chloride (98-107) mmol/L Carbon Dioxide (22-30) mmol/L Glucose (74-99) mg/dL POC Glucose (mg/dL) 155 H 141 H 135 H (75-99) mg/dL Calcium (8.4-10.2) mg/dL Magnesium (1.6-2.3) mg/dL Alkaline Phosphatase (38-126) U/L Total Protein (6.3-8.2) g/dL Albumin (3.5-5.0) g/dL Arterial Blood Potassium (3.4-4.5) mmol/L Arterial Blood Glucose (75-99) mg/dL Crossmatch 04/13/18 04/13/18 04/13/18 Range/Units 00:03 00:54 01:59 RBC (4.30-5.90) m/uL Hgb (13.0-17.5) gm/dL Hct (39.0-53.0) % Plt Count (150-450) k/uL Lymphocytes # (1.0-4.8) k/uL PT (9.0-12.0) sec INR (<1.2) APTT (22.0-30.0) sec ABG pH (7.35-7.45) ABG pCO2 (35-45) mmHg ABG pO2 (83-108) mmHg ABG Total CO2 (19-24) mmol/L ABG O2 Saturation (94-97) % ABG Hematocrit (34.0-46.0) % ABG Potassium (3.4-4.5) mmol/L ABG Ionized Calcium (4.5-5.3) mg/dL ABG Glucose (75-99) mg/dL ABG Lactic Acid (0.5-1.6) mmol/L Hemoglobin (13.0-17.5) gm/dL Chloride (98-107) mmol/L Carbon Dioxide (22-30) mmol/L Glucose (74-99) mg/dL POC Glucose (mg/dL) 128 H 132 H 125 H (75-99) mg/dL Calcium (8.4-10.2) mg/dL Magnesium (1.6-2.3) mg/dL Alkaline Phosphatase (38-126) U/L Total Protein (6.3-8.2) g/dL Albumin (3.5-5.0) g/dL Arterial Blood Potassium (3.4-4.5) mmol/L Arterial Blood Glucose (75-99) mg/dL Crossmatch 04/13/18 04/13/18 04/13/18 Range/Units 02:55 04:04 04:30 RBC 2.07 L (4.30-5.90) m/uL Hgb 6.6 L* (13.0-17.5) gm/dL Hct 19.9 L* (39.0-53.0) % Plt Count 89 L (150-450) k/uL Lymphocytes # 0.5 L (1.0-4.8) k/uL PT (9.0-12.0) sec INR (<1.2) APTT (22.0-30.0) sec ABG pH (7.35-7.45) ABG pCO2 (35-45) mmHg ABG pO2 (83-108) mmHg ABG Total CO2 (19-24) mmol/L ABG O2 Saturation (94-97) % ABG Hematocrit (34.0-46.0) % ABG Potassium (3.4-4.5) mmol/L ABG Ionized Calcium (4.5-5.3) mg/dL ABG Glucose (75-99) mg/dL ABG Lactic Acid (0.5-1.6) mmol/L Hemoglobin (13.0-17.5) gm/dL Chloride (98-107) mmol/L Carbon Dioxide (22-30) mmol/L Glucose (74-99) mg/dL POC Glucose (mg/dL) 123 H 125 H (75-99) mg/dL Calcium (8.4-10.2) mg/dL Magnesium (1.6-2.3) mg/dL Alkaline Phosphatase (38-126) U/L Total Protein (6.3-8.2) g/dL Albumin (3.5-5.0) g/dL Arterial Blood Potassium (3.4-4.5) mmol/L Arterial Blood Glucose (75-99) mg/dL Crossmatch 04/13/18 04/13/18 04/13/18 Range/Units 04:30 04:30 05:07 RBC (4.30-5.90) m/uL Hgb (13.0-17.5) gm/dL Hct (39.0-53.0) % Plt Count (150-450) k/uL Lymphocytes # (1.0-4.8) k/uL PT 12.2 H (9.0-12.0) sec INR 1.3 H (<1.2) APTT 32.2 H (22.0-30.0) sec ABG pH (7.35-7.45) ABG pCO2 (35-45) mmHg ABG pO2 (83-108) mmHg ABG Total CO2 (19-24) mmol/L ABG O2 Saturation (94-97) % ABG Hematocrit (34.0-46.0) % ABG Potassium (3.4-4.5) mmol/L ABG Ionized Calcium (4.5-5.3) mg/dL ABG Glucose (75-99) mg/dL ABG Lactic Acid (0.5-1.6) mmol/L Hemoglobin (13.0-17.5) gm/dL Chloride 111 H (98-107) mmol/L Carbon Dioxide (22-30) mmol/L Glucose 105 H (74-99) mg/dL POC Glucose (mg/dL) 125 H (75-99) mg/dL Calcium 7.8 L (8.4-10.2) mg/dL Magnesium (1.6-2.3) mg/dL Alkaline Phosphatase 28 L (38-126) U/L Total Protein 4.2 L (6.3-8.2) g/dL Albumin 2.6 L (3.5-5.0) g/dL Arterial Blood Potassium (3.4-4.5) mmol/L Arterial Blood Glucose (75-99) mg/dL Crossmatch 04/13/18 04/13/18 04/13/18 Range/Units 06:58 08:07 09:13 RBC (4.30-5.90) m/uL Hgb (13.0-17.5) gm/dL Hct (39.0-53.0) % Plt Count (150-450) k/uL Lymphocytes # (1.0-4.8) k/uL PT (9.0-12.0) sec INR (<1.2) APTT (22.0-30.0) sec ABG pH (7.35-7.45) ABG pCO2 (35-45) mmHg ABG pO2 (83-108) mmHg ABG Total CO2 (19-24) mmol/L ABG O2 Saturation (94-97) % ABG Hematocrit (34.0-46.0) % ABG Potassium (3.4-4.5) mmol/L ABG Ionized Calcium (4.5-5.3) mg/dL ABG Glucose (75-99) mg/dL ABG Lactic Acid (0.5-1.6) mmol/L Hemoglobin (13.0-17.5) gm/dL Chloride (98-107) mmol/L Carbon Dioxide (22-30) mmol/L Glucose (74-99) mg/dL POC Glucose (mg/dL) 115 H 122 H 115 H (75-99) mg/dL Calcium (8.4-10.2) mg/dL Magnesium (1.6-2.3) mg/dL Alkaline Phosphatase (38-126) U/L Total Protein (6.3-8.2) g/dL Albumin (3.5-5.0) g/dL Arterial Blood Potassium (3.4-4.5) mmol/L Arterial Blood Glucose (75-99) mg/dL Crossmatch 04/13/18 04/13/18 Range/Units 10:07 11:08 RBC (4.30-5.90) m/uL Hgb (13.0-17.5) gm/dL Hct (39.0-53.0) % Plt Count (150-450) k/uL Lymphocytes # (1.0-4.8) k/uL PT (9.0-12.0) sec INR (<1.2) APTT (22.0-30.0) sec ABG pH (7.35-7.45) ABG pCO2 (35-45) mmHg ABG pO2 (83-108) mmHg ABG Total CO2 (19-24) mmol/L ABG O2 Saturation (94-97) % ABG Hematocrit (34.0-46.0) % ABG Potassium (3.4-4.5) mmol/L ABG Ionized Calcium (4.5-5.3) mg/dL ABG Glucose (75-99) mg/dL ABG Lactic Acid (0.5-1.6) mmol/L Hemoglobin (13.0-17.5) gm/dL Chloride (98-107) mmol/L Carbon Dioxide (22-30) mmol/L Glucose (74-99) mg/dL POC Glucose (mg/dL) 117 H 119 H (75-99) mg/dL Calcium (8.4-10.2) mg/dL Magnesium (1.6-2.3) mg/dL Alkaline Phosphatase (38-126) U/L Total Protein (6.3-8.2) g/dL Albumin (3.5-5.0) g/dL Arterial Blood Potassium (3.4-4.5) mmol/L Arterial Blood Glucose (75-99) mg/dL Crossmatch - Imaging and Cardiology Chest x-ray: report reviewed, image reviewed Assessment and Plan (1) BPH (benign prostatic hyperplasia) Current Visit: Yes Status: Chronic Code(s): N40.0 - BENIGN PROSTATIC HYPERPLASIA WITHOUT LOWER URINRY TRACT SYMP SNOMED Code(s): 018998964 (2) CAD (coronary artery disease) Current Visit: Yes Status: Chronic Code(s): I25.10 - ATHSCL HEART DISEASE OF [place] CORONARY ARTERY W/O ANG PCTRS SNOMED Code(s): 88109728 (3) Family history of premature CAD Current Visit: Yes Status: Chronic Code(s): Z82.49 - FAMILY HX OF ISCHEM HEART DIS AND OTH DIS OF THE CIRC SYS SNOMED Code(s): 049398006 (4) History of coronary artery stent placement Current Visit: Yes Status: Chronic Code(s): Z95.5 - PRESENCE OF CORONARY ANGIOPLASTY IMPLANT AND GRAFT SNOMED Code(s): 714758067 (5) History of partial nephrectomy Current Visit: Yes Status: Chronic Code(s): Z90.5 - ACQUIRED ABSENCE OF KIDNEY SNOMED Code(s): 482502038 (6) Hyperlipidemia Current Visit: Yes Status: Chronic Code(s): E78.5 - HYPERLIPIDEMIA, UNSPECIFIED SNOMED Code(s): 66683490 (7) Hypertension Current Visit: Yes Status: Chronic Code(s): I10 - ESSENTIAL (PRIMARY) HYPERTENSION SNOMED Code(s): 22207317 (8) History of ST elevation myocardial infarction (STEMI) Current Visit: No Status: Resolved Code(s): I25.2 - OLD MYOCARDIAL INFARCTION SNOMED Code(s): 182709897252749 (9) History of kidney cancer Current Visit: No Status: Resolved Code(s): Z85.528 - PERSONAL HISTORY OF OTHER MALIGNANT NEOPLASM OF KIDNEY SNOMED Code(s): 390085968 Plan: 1. Continue low-dose aspirin, statin, Plavix, beta brian. Will increase beta brian therapy as tolerated. Discontinue IV nitro. 2. Will give 1 unit packed red blood cells today. 10 mg IV Lasix ordered 1. 3. Wean O2 as tolerated. Encourage incentive spirometry is 10 times every hour while awake. 4. Increase activity as tolerated. PT/OT/cardiac rehab following. 5. Will monitor daily labs and chest x-rays. 6. Insulin management per primary care service. 7. Discontinue Story. Cannot Cordis to continuous CVP monitoring. 8. Regimen with current medication regimen. 9. GI prophylaxis with Protonix, DVT prophylaxis with subcu heparin and SCDs. 10. More recommendations to follow. Time with Patient: Greater than 30
[2018-04-13 12:37] LABS: Glucose,Whole Blood 105 mg/dL (75-99)
[2018-04-13 13:02] LABS: Glucose,Whole Blood 106 mg/dL (75-99)
[2018-04-13 14:08] LABS: Glucose,Whole Blood 111 mg/dL (75-99)
[2018-04-13] MEDS ORDERED: HYDROcodone/APAP 5-325MG 1 EACH TAB PO PRN (14:27)
[2018-04-13] MEDS ORDERED: BISACODYL 10 MG SUPP RECTAL PRN (14:27)
[2018-04-13 15:17] LABS: Glucose,Whole Blood 135 mg/dL (75-99)
[2018-04-13] MEDS: LACTATED RINGERS 1,000 ML IV SCH (16:27)
--- NOTE | 2018-04-13 16:28 | P.CONS ---
History of Present Illness - Reason for Consult Consult date: 04/13/18 Medical management Requesting physician: Lamberto Martinez - Chief Complaint Consulted for medical management - History of Present Illness The patient is a 73-year-old male with a past medical history of coronary artery disease with a recent ST elevation ME with placement of a SHARON in the LAD who is currently postop day #1 after having a 4 vessel CABG; left internal mammary artery to the left anterior descending artery, reverse saphenous vein graft to the obtuse marginal artery, reverse saphenous vein graft to the posterior descending artery, reverse saphenous vein graft to the diagonal artery, endoscopic vein harvesting of the left greater saphenous vein, intraoperative transesophageal echocardiogram. The patient is doing well he was successfully extubated postop within the 4-6 hr time frame. Today he reports his breathing is improved, but he does complain of sternal pain which is controlled with his current pain regimen. Patient reported having episode of passing out this morning apparently the patient became diaphoretic and was noted to be hypotensive and bradycardic this episode subsequently resolved when he went back to bed and was given a dose of albumin. Review of Systems Pertinent positives per HPI, all other review of systems are otherwise negative Past Medical History Past Medical History: Coronary Artery Disease (CAD), Cancer, GERD/Reflux, Hyperlipidemia, Hypertension, Myocardial Infarction (ME) Additional Past Medical History / Comment(s): BPH, ME, ASCAD, Seasonal allergies , Bleeding gastric ulcer, Kidney cancer, rt side inguinal hernia currently- sometimes protruded-needs to have surgery Last Myocardial Infarction Date:: 01/12/18 History of Any Multi-Drug Resistant Organisms: None Reported Past Surgical History: Heart Catheterization With Stent, Tonsillectomy Additional Past Surgical History / Comment(s): Partial nephrectomy secondary to kidney cancer, vasectomy Past Anesthesia/Blood Transfusion Reactions: No Reported Reaction Additional Past Anesthesia/Blood Transfusion Reaction / Comm: Pt has received blood in past without reaction. Date of Last Stent Placement:: 01/12/18 Smoking Status: Never smoker - Past Family History Mother Additional Family Medical History / Comment(s): Mother had polio and was paralyzed from her neck down. Father Family Medical History: Coronary Artery Disease (CAD), Myocardial Infarction (ME ) Additional Family Medical History / Comment(s): Father of a ME in his 50s. He was a heavy drinker and smoker. Sister(s) Family Medical History: Diabetes Mellitus Medications and Allergies Home Medications Medication Instructions Recorded Confirmed Type Aspirin EC [Ecotrin Low Dose] 81 mg PO HS 01/12/18 04/12/18 History Tamsulosin [Flomax] 0.4 mg PO Q48H 01/12/18 04/12/18 History Lisinopril [Zestril] 5 mg PO DAILY #30 tab 01/15/18 04/12/18 Rx Metoprolol Tartrate [Lopressor] 12.5 mg PO BID #60 tab 01/15/18 04/12/18 Rx Nitroglycerin Sl Tabs [Nitrostat] 0.4 mg SUBLINGUAL Q5M PRN #7 tab 01/15/18 Rx Atorvastatin [Lipitor] 20 mg PO HS 03/10/18 04/12/18 History Clopidogrel Bisulfate [Plavix] 75 mg PO HS 03/27/18 04/12/18 History Allergies Allergy/AdvReac Type Severity Reaction Status Date / Time Iodinated Contrast- Oral and Allergy Unknown Verified 04/12/18 14:23 IV Dye Physical Exam Vitals: Vital Signs Temp Pulse Resp Pulse Ox 04/13/18 16:00 98.2 F 67 17 98 04/13/18 15:00 98.2 F 64 18 97 04/13/18 14:30 64 20 96 04/13/18 14:00 98.6 F 66 21 97 04/13/18 13:50 62 20 98 04/13/18 13:40 64 16 97 04/13/18 13:30 63 23 97 04/13/18 13:20 62 21 98 04/13/18 13:10 62 13 97 04/13/18 13:00 98.4 F 63 18 97 04/13/18 12:50 62 17 97 04/13/18 12:40 64 21 97 04/13/18 12:30 98.4 F 63 14 97 04/13/18 12:20 98.2 F 66 15 97 04/13/18 12:10 66 20 98 04/13/18 12:05 69 04/13/18 12:00 64 18 100 04/13/18 11:53 66 04/13/18 11:50 64 19 97 04/13/18 11:40 98.7 F 66 17 97 04/13/18 11:30 98.2 F 66 17 97 04/13/18 11:20 68 16 98 04/13/18 11:00 68 17 98 04/13/18 10:00 78 17 96 04/13/18 09:00 74 14 100 04/13/18 08:27 75 04/13/18 08:16 75 04/13/18 08:00 36.5 F L 74 17 100 04/13/18 07:30 73 18 97 04/13/18 07:00 80 19 100 04/13/18 06:30 80 16 100 04/13/18 06:00 70 21 100 04/13/18 05:30 72 20 96 04/13/18 05:00 68 17 96 04/13/18 04:30 97.5 F L 66 22 96 04/13/18 04:00 72 23 96 04/13/18 03:30 69 18 97 04/13/18 03:00 70 15 97 04/13/18 02:30 66 22 97 04/13/18 02:00 67 20 96 04/13/18 01:30 67 17 97 04/13/18 01:00 68 15 97 04/13/18 00:30 70 17 98 04/13/18 00:00 70 16 98 04/12/18 23:30 69 15 95 04/12/18 23:05 70 18 98 04/12/18 23:00 74 20 98 04/12/18 22:30 74 17 96 04/12/18 22:00 78 20 97 04/12/18 21:30 76 13 97 04/12/18 21:00 77 14 99 04/12/18 20:30 80 22 94 L 04/12/18 20:00 80 18 96 04/12/18 19:44 78 04/12/18 19:30 80 16 97 04/12/18 19:00 79 15 97 04/12/18 18:30 72 14 99 04/12/18 18:00 74 15 99 04/12/18 17:30 72 15 100 04/12/18 17:00 72 16 99 04/12/18 16:30 73 14 100 04/12/18 16:15 73 Intake and Output 04/13/18 04/13/18 04/13/18 06:59 14:59 22:59 Intake Total 1555.884 486.850 333 Output Total 1305 1240 160 Balance 250.884 -753.150 173 Intake: IV 1536 472 23 ACETAMINOPHEN IV (For NPO 100 100 ) 1,000 mg In Empty Bag 1 bag @ 400 mls/hr IVPB Q6HR [facility] Rx#:[id number] Albumin Human 5% 500 ml @ 750 Per Protocol IVPB ONCE ONE Rx#:[id number] Co/CI 230 60 Lactated Ringers 1,000 ml 400 270 20 @ 20 mls/hr IV .Q24H [facility] Rx#:[id number] Pressure Bag of 0.9 NaCl 36 42 3 ceFAZolin 2,000 mg In 20 Sodium Chloride 0.9% 30 ml @ Per Protocol IVPB ONCE ONE Rx#:[id number] Intake, IV Titration 19.884 14.850 Amount Clevidipine Butyrate 25 5.267 mg In Empty Bag 1 bag @ 1 MG/HR 2 mls/hr IV .Q24H [facility] Rx#:[id number] Insulin Regular 100 unit 14.617 14.850 In Sodium Chloride 0.9% 100 ml @ Per Protocol IV .Q0M [facility] Rx#:[id number] Blood Product 0 310 Rc As-1 Unit 0 310 [id number] Output: Chest Tube Drainage 690 345 80 Chest Tube Left 500 320 70 Mediastinal 190 25 10 Urine 615 895 80 Other: Voiding Method Indwelling Catheter Indwelling Catheter Weight 68.3 kg 68.3 kg ABP, PAP, CO, CI - Last 8 Hours Arterial Blood Pressure 136/44 Arterial Blood Pressure 120/41 Arterial Blood Pressure 111/50 Arterial Blood Pressure 116/41 Arterial Blood Pressure 95/40 Arterial Blood Pressure 113/40 Arterial Blood Pressure 106/39 Arterial Blood Pressure 105/41 Arterial Blood Pressure 93/37 Arterial Blood Pressure 84/26 Arterial Blood Pressure 116/39 Arterial Blood Pressure 129/41 Arterial Blood Pressure 111/38 Arterial Blood Pressure 121/39 Arterial Blood Pressure 125/42 Arterial Blood Pressure 131/41 Arterial Blood Pressure 129/41 Arterial Blood Pressure 130/42 Arterial Blood Pressure 127/41 Arterial Blood Pressure 135/41 Arterial Blood Pressure 126/42 Arterial Blood Pressure 148/51 Arterial Blood Pressure 136/46 Pulmonary Artery Pressure 28/13 Cardiac Output 5.2 Cardiac Output 5.2 Cardiac Output 5.2 Cardiac Output 5.2 Cardiac Output 5.2 Cardiac Output 5.2 Cardiac Output 5.2 Cardiac Output 5.2 Cardiac Output 5.2 Cardiac Output 5.2 Cardiac Output 5.2 Cardiac Output 5.2 Cardiac Output 5.2 Cardiac Output 5.2 Constitutional: No acute distress, conversant, pleasant Eyes: Anicteric sclerae, moist conjunctiva, no lid-lag, PERRLA ENMT: NC/AT,Oropharynx clear, no erythema, exudates Neck:Supple, FROM, no masses, or JVD, No carotid bruits; No thyromegaly Lungs: Clear to auscultation, Clear to percussion, Normal respiratory effort, no accessory muscle use on 2 L nasal cannula, left mediastinal mediastinal chest tube to continuous suction Cardiovascular: Heart regular in rate and rhythm, No murmurs, gallops, or rubs no peripheral edema, chest hugger in place, right IJ Cordis, right radial arteria l line Abdominal: Soft Nontender, nom distended, no guarding, no rebound or rigidity, Normoactive bowel sounds No hepatomegaly, No splenomegaly, No palpable mass No abdominal wall hernia noted Skin: Normal temperature, tone, texture, turgor, No induration No subcutaneous nodules, No rash, lesions, No ulcers Extremities:No digital cyanosis No clubbing, Pedal pulses intact and symmetrical Radial pulses intact and symmetrical Normal gait and station, No calf tenderness Psychiatric: Alert and oriented to person, place and time, Appropriate affect Intact judgement Neuro: Muscles Strength 5/5 in all 4 extremities, Sensation to light touch grossly present throughout, Cranial nerves II-XII grossly intact. No focal sensory deficits Results CBC & Chem 7: 04/13/18 04:30 04/13/18 04:30 Labs: Abnormal Lab Results - Last 24 Hours (Table) 04/05/18 04/12/18 04/12/18 Range/Units 10:35 15:39 15:39 RBC 2.39 L (4.30-5.90) m/uL Hgb 7.8 L D (13.0-17.5) gm/dL Hct 23.1 L (39.0-53.0) % Plt Count 81 L D (150-450) k/uL Lymphocytes # 0.6 L (1.0-4.8) k/uL PT 14.1 H (9.0-12.0) sec INR 1.5 H (<1.2) APTT 39.7 H (22.0-30.0) sec ABG pH (7.35-7.45) ABG pO2 (83-108) mmHg ABG O2 Saturation (94-97) % Chloride (98-107) mmol/L Carbon Dioxide (22-30) mmol/L Glucose (74-99) mg/dL POC Glucose (mg/dL) (75-99) mg/dL Calcium (8.4-10.2) mg/dL Alkaline Phosphatase (38-126) U/L Total Protein (6.3-8.2) g/dL Albumin (3.5-5.0) g/dL Crossmatch See Detail 04/12/18 04/12/18 04/12/18 Range/Units 17:03 17:21 18:03 RBC 2.37 L (4.30-5.90) m/uL Hgb 7.6 L (13.0-17.5) gm/dL Hct 22.5 L (39.0-53.0) % Plt Count 76 L (150-450) k/uL Lymphocytes # 0.4 L (1.0-4.8) k/uL PT (9.0-12.0) sec INR (<1.2) APTT (22.0-30.0) sec ABG pH (7.35-7.45) ABG pO2 (83-108) mmHg ABG O2 Saturation (94-97) % Chloride (98-107) mmol/L Carbon Dioxide (22-30) mmol/L Glucose (74-99) mg/dL POC Glucose (mg/dL) 120 H 142 H (75-99) mg/dL Calcium (8.4-10.2) mg/dL Alkaline Phosphatase (38-126) U/L Total Protein (6.3-8.2) g/dL Albumin (3.5-5.0) g/dL Crossmatch 04/12/18 04/12/18 04/12/18 Range/Units 18:25 18:48 20:10 RBC (4.30-5.90) m/uL Hgb (13.0-17.5) gm/dL Hct (39.0-53.0) % Plt Count (150-450) k/uL Lymphocytes # (1.0-4.8) k/uL PT (9.0-12.0) sec INR (<1.2) APTT (22.0-30.0) sec ABG pH 7.34 L (7.35-7.45) ABG pO2 144 H (83-108) mmHg ABG O2 Saturation 99.6 H (94-97) % Chloride (98-107) mmol/L Carbon Dioxide (22-30) mmol/L Glucose (74-99) mg/dL POC Glucose (mg/dL) 129 H 150 H (75-99) mg/dL Calcium (8.4-10.2) mg/dL Alkaline Phosphatase (38-126) U/L Total Protein (6.3-8.2) g/dL Albumin (3.5-5.0) g/dL Crossmatch 04/12/18 04/12/18 04/12/18 Range/Units 20:20 20:21 21:02 RBC 2.48 L (4.30-5.90) m/uL Hgb 7.8 L (13.0-17.5) gm/dL Hct 23.5 L (39.0-53.0) % Plt Count 85 L (150-450) k/uL Lymphocytes # 0.4 L (1.0-4.8) k/uL PT (9.0-12.0) sec INR (<1.2) APTT (22.0-30.0) sec ABG pH (7.35-7.45) ABG pO2 (83-108) mmHg ABG O2 Saturation (94-97) % Chloride 111 H (98-107) mmol/L Carbon Dioxide 20 L (22-30) mmol/L Glucose 133 H (74-99) mg/dL POC Glucose (mg/dL) 155 H (75-99) mg/dL Calcium 7.9 L (8.4-10.2) mg/dL Alkaline Phosphatase (38-126) U/L Total Protein (6.3-8.2) g/dL Albumin (3.5-5.0) g/dL Crossmatch 04/12/18 04/12/18 04/13/18 Range/Units 22:10 23:02 00:03 RBC (4.30-5.90) m/uL Hgb (13.0-17.5) gm/dL Hct (39.0-53.0) % Plt Count (150-450) k/uL Lymphocytes # (1.0-4.8) k/uL PT (9.0-12.0) sec INR (<1.2) APTT (22.0-30.0) sec ABG pH (7.35-7.45) ABG pO2 (83-108) mmHg ABG O2 Saturation (94-97) % Chloride (98-107) mmol/L Carbon Dioxide (22-30) mmol/L Glucose (74-99) mg/dL POC Glucose (mg/dL) 141 H 135 H 128 H (75-99) mg/dL Calcium (8.4-10.2) mg/dL Alkaline Phosphatase (38-126) U/L Total Protein (6.3-8.2) g/dL Albumin (3.5-5.0) g/dL Crossmatch 04/13/18 04/13/18 04/13/18 Range/Units 00:54 01:59 02:55 RBC (4.30-5.90) m/uL Hgb (13.0-17.5) gm/dL Hct (39.0-53.0) % Plt Count (150-450) k/uL Lymphocytes # (1.0-4.8) k/uL PT (9.0-12.0) sec INR (<1.2) APTT (22.0-30.0) sec ABG pH (7.35-7.45) ABG pO2 (83-108) mmHg ABG O2 Saturation (94-97) % Chloride (98-107) mmol/L Carbon Dioxide (22-30) mmol/L Glucose (74-99) mg/dL POC Glucose (mg/dL) 132 H 125 H 123 H (75-99) mg/dL Calcium (8.4-10.2) mg/dL Alkaline Phosphatase (38-126) U/L Total Protein (6.3-8.2) g/dL Albumin (3.5-5.0) g/dL Crossmatch 04/13/18 04/13/18 04/13/18 Range/Units 04:04 04:30 04:30 RBC 2.07 L (4.30-5.90) m/uL Hgb 6.6 L* (13.0-17.5) gm/dL Hct 19.9 L* (39.0-53.0) % Plt Count 89 L (150-450) k/uL Lymphocytes # 0.5 L (1.0-4.8) k/uL PT 12.2 H (9.0-12.0) sec INR 1.3 H (<1.2) APTT 32.2 H (22.0-30.0) sec ABG pH (7.35-7.45) ABG pO2 (83-108) mmHg ABG O2 Saturation (94-97) % Chloride (98-107) mmol/L Carbon Dioxide (22-30) mmol/L Glucose (74-99) mg/dL POC Glucose (mg/dL) 125 H (75-99) mg/dL Calcium (8.4-10.2) mg/dL Alkaline Phosphatase (38-126) U/L Total Protein (6.3-8.2) g/dL Albumin (3.5-5.0) g/dL Crossmatch 04/13/18 04/13/18 04/13/18 Range/Units 04:30 05:07 06:58 RBC (4.30-5.90) m/uL Hgb (13.0-17.5) gm/dL Hct (39.0-53.0) % Plt Count (150-450) k/uL Lymphocytes # (1.0-4.8) k/uL PT (9.0-12.0) sec INR (<1.2) APTT (22.0-30.0) sec ABG pH (7.35-7.45) ABG pO2 (83-108) mmHg ABG O2 Saturation (94-97) % Chloride 111 H (98-107) mmol/L Carbon Dioxide (22-30) mmol/L Glucose 105 H (74-99) mg/dL POC Glucose (mg/dL) 125 H 115 H (75-99) mg/dL Calcium 7.8 L (8.4-10.2) mg/dL Alkaline Phosphatase 28 L (38-126) U/L Total Protein 4.2 L (6.3-8.2) g/dL Albumin 2.6 L (3.5-5.0) g/dL Crossmatch 04/13/18 04/13/18 04/13/18 Range/Units 08:07 09:13 10:07 RBC (4.30-5.90) m/uL Hgb (13.0-17.5) gm/dL Hct (39.0-53.0) % Plt Count (150-450) k/uL Lymphocytes # (1.0-4.8) k/uL PT (9.0-12.0) sec INR (<1.2) APTT (22.0-30.0) sec ABG pH (7.35-7.45) ABG pO2 (83-108) mmHg ABG O2 Saturation (94-97) % Chloride (98-107) mmol/L Carbon Dioxide (22-30) mmol/L Glucose (74-99) mg/dL POC Glucose (mg/dL) 122 H 115 H 117 H (75-99) mg/dL Calcium (8.4-10.2) mg/dL Alkaline Phosphatase (38-126) U/L Total Protein (6.3-8.2) g/dL Albumin (3.5-5.0) g/dL Crossmatch 04/13/18 04/13/18 04/13/18 Range/Units 11:08 12:36 13:01 RBC (4.30-5.90) m/uL Hgb (13.0-17.5) gm/dL Hct (39.0-53.0) % Plt Count (150-450) k/uL Lymphocytes # (1.0-4.8) k/uL PT (9.0-12.0) sec INR (<1.2) APTT (22.0-30.0) sec ABG pH (7.35-7.45) ABG pO2 (83-108) mmHg ABG O2 Saturation (94-97) % Chloride (98-107) mmol/L Carbon Dioxide (22-30) mmol/L Glucose (74-99) mg/dL POC Glucose (mg/dL) 119 H 105 H 106 H (75-99) mg/dL Calcium (8.4-10.2) mg/dL Alkaline Phosphatase (38-126) U/L Total Protein (6.3-8.2) g/dL Albumin (3.5-5.0) g/dL Crossmatch 04/13/18 04/13/18 Range/Units 14:06 15:15 RBC (4.30-5.90) m/uL Hgb (13.0-17.5) gm/dL Hct (39.0-53.0) % Plt Count (150-450) k/uL Lymphocytes # (1.0-4.8) k/uL PT (9.0-12.0) sec INR (<1.2) APTT (22.0-30.0) sec ABG pH (7.35-7.45) ABG pO2 (83-108) mmHg ABG O2 Saturation (94-97) % Chloride (98-107) mmol/L Carbon Dioxide (22-30) mmol/L Glucose (74-99) mg/dL POC Glucose (mg/dL) 111 H 135 H (75-99) mg/dL Calcium (8.4-10.2) mg/dL Alkaline Phosphatase (38-126) U/L Total Protein (6.3-8.2) g/dL Albumin (3.5-5.0) g/dL Crossmatch Assessment and Plan (1) CAD (coronary artery disease) Current Visit: Yes Status: Chronic Code(s): I25.10 - ATHSCL HEART DISEASE OF [place] CORONARY ARTERY W/O ANG PCTRS SNOMED Code(s): 17139678 (2) History of coronary artery stent placement Current Visit: Yes Status: Chronic Code(s): Z95.5 - PRESENCE OF CORONARY ANGIOPLASTY IMPLANT AND GRAFT SNOMED Code(s): 086981222 (3) Hyperlipidemia Current Visit: Yes Status: Chronic Code(s): E78.5 - HYPERLIPIDEMIA, UNSPECIFIED SNOMED Code(s): 27819623 (4) Hypertension Current Visit: Yes Status: Chronic Code(s): I10 - ESSENTIAL (PRIMARY) HYPERTENSION SNOMED Code(s): 91336508 (5) History of ST elevation myocardial infarction (STEMI) Current Visit: No Status: Resolved Code(s): I25.2 - OLD MYOCARDIAL INFARCTION SNOMED Code(s): 205107930161351 (6) S/P CABG x 4 Current Visit: Yes Status: Acute Code(s): Z95.1 - PRESENCE OF AORTOCORONARY BYPASS GRAFT SNOMED Code(s): 549583638 Plan: Patient is currently admitted to [facility] surgery primary service currently doing well postop day 1 status post 4 vessel CABG. He is continued on dual antiplatelet therapy with low-dose aspirin and Plavix, beta brian and statin therapy. Currently hemodynamically stable not requiring any pressor support. Patient's blood sugars are strictly controlled, able to transition from insulin drip to, correctional scale coverage before meals and at bedtime along with Accu -Cheks. Patient with noted postoperative anemia Hg 6.6 status post transfusion of 1 unit of packed RBCs. We'll continue to follow his clinical course
[2018-04-13 17:11] LABS: Glucose,Whole Blood 147 mg/dL (75-99)
[2018-04-13] MEDS: INSULIN ASPART 100 UNIT/ML 1 ML 10 ML VIAL SQ SCH ×2 (18:55→21:03)
[2018-04-13] MEDS: CLEVIDIPINE BUTYRATE 25 MG in EMPTY BAG 1 BAG IV SCH (18:57)
[2018-04-13 21:03] LABS: Glucose,Whole Blood 132 mg/dL (75-99)
[2018-04-13] MEDS: TAMSULOSIN 0.4 MG CAP.ER.24H PO SCH (21:04)
[2018-04-13] MEDS: SENNOSIDES-DOCUSATE SODIUM 1 EACH TAB PO SCH (21:04)
[2018-04-14] MEDS: HYDROcodone/APAP 5-325MG 1 EACH TAB PO PRN ×5 (02:48→22:50)
[2018-04-14 05:21] LABS: Ionized Calcium 5.1 mg/dL (4.5-5.3)
[2018-04-14 05:31] LABS: Albumin 2.9 g/dL (3.5-5.0); Calcium 8.5 mg/dL (8.4-10.2); Phosphorus 2.6 mg/dL (2.5-4.5); Potassium 4.7 mmol/L (3.5-5.1); Total Bilirubin 1.1 mg/dL (0.2-1.3); Total Protein 4.6 g/dL (6.3-8.2)
[2018-04-14 05:42] LABS: Basophils % (A) 0 %; Eosinophils # (A) 0.1 k/uL (0-0.7); Eosinophils % (A) 1 %; HCT 20.8 % (39.0-53.0); HGB 7.2 gm/dL (13.0-17.5); Lymphocytes # (A) 0.7 k/uL (1.0-4.8); Lymphocytes % (A) 10 %; MCH 33.1 pg (25.0-35.0); MCHC 34.8 g/dL (31.0-37.0); MCV 95.3 fL (80.0-100.0); Mean Platelet Volume 9.2; Monocytes # (A) 0.5 k/uL (0-1.0); Monocytes % (A) 7 %; Neutrophils # (A) 6.1 k/uL (1.3-7.7); Neutrophils % (A) 81 %; RBC 2.18 m/uL (4.30-5.90); RDW 13.8 % (11.5-15.5); WBC 7.5 k/uL (3.8-10.6)
[2018-04-14 06:16] LABS: Platelet Count 79 k/uL (150-450)
[2018-04-14] MEDS: IPRATROPIUM-ALBUTEROL 3 ML NEB INHALATION SCH ×4 (07:12→20:00)
[2018-04-14 07:33] LABS: Glucose,Whole Blood 127 mg/dL (75-99)
--- NOTE | 2018-04-14 07:44 | XR ---
EXAMINATION TYPE: XR chest 1V portable DATE OF EXAM: 04/14/2018 COMPARISON: 04/13/2018 INDICATION: Pneumothorax TECHNIQUE: Single frontal view of the chest is obtained. FINDINGS: The heart size is normal. The pulmonary vasculature is normal. A sheath or catheter is present on the right with the tip in the superior vena cava region. Sternotom y wires are midline. Mediastinal chest tube appears to be present. Small left pleural effusion with a djacent atelectasis may be present. Previous minimal right apical pneumothorax resolving is less than 1%. IMPRESSION: 1. Minimal left pleural effusion and/or atelectasis at the left base. This appears somewhat improved from comparison. 2. The suspected minimal left apical pneumothorax appears to be resolving.
[2018-04-14] MEDS: INSULIN ASPART 100 UNIT/ML 1 ML 10 ML VIAL SQ SCH ×4 (08:20→21:57)
[2018-04-14] MEDS: ASPIRIN 81 MG PO SCH (08:21)
[2018-04-14] MEDS: PANTOPRAZOLE 40 MG TABLET PO SCH (08:21)
[2018-04-14] MEDS: HEPARIN SODIUM,PORCINE 5,000 UNIT/ML 1 ML VIAL SQ SCH ×3 (08:21→23:58)
[2018-04-14] MEDS: MUPIROCIN 2% OINT 22 GM TUBE NASAL SCH ×2 (08:22→21:56)
[2018-04-14] MEDS: ATORVASTATIN 40 MG TAB PO SCH (08:22)
[2018-04-14] MEDS: CLOPIDOGREL 75 MG TAB PO SCH (08:22)
[2018-04-14] MEDS: METOPROLOL TARTRATE 12.5 MG TAB PO SCH ×2 (08:22→21:56)
--- NOTE | 2018-04-14 08:44 | P.PN ---
Subjective Progress Note Date: 04/14/18 Principal diagnosis: Coronary artery disease, status post coronary artery bypass grafting 4 Pulmonary consultation dated 04/13/2018 This is a 73-year-old male who is postop day #1 status post four-vessel bypass grafting. The patient is currently doing relatively well and he was extubated within the 4-6 hour timeframe. Currently he is on O2 at between 2-4 L/m. He is getting lactated Ringer's at 50 mL an hour and insulin drip at less than 1 unit per hour and he was on nitroglycerin but that has been turned off. His chest x-ray shows some bibasilar atelectasis and small bilateral effusions and postoperative changes. He does have a previous history of CAD with a recent ST segment elevation myocardial infarction and placement of a drug-eluting stent to the left anterior descending coronary artery. He also has a history of hypertension hyperlipidemia BPH kidney cancer, status post partial nephrectomy and a family history of CAD. The patient presented to the primary care physician's office on January 12 with complaints of chest pain shortness of breath sweats nausea and lightheadedness as well as an ST elevation on EKG. Subsequent evaluation revealed significant CAD. Again the patient had surgery yesterday and is doing very well today. The patient really has no complaints although apparently this morning had a near syncopal episode so he is back in bed. This is why the nitroglycerin was turned off. The patient apparently has a history of never having used tobacco products. No significant alcohol or illicit drug use either. On 04/06/2018, patient seen in follow-up in the intensive care unit. Resting comfortably in bed, in no acute distress, he is awake alert oriented 3. On 2 L per nasal cannula, his pulse ox is 95%, I asked effort is 1000 mL today. Lung sounds are positive for diminished breath sounds at the bases, with some limited crackles bilaterally, today's chest x-ray shows minimal left pleural effusion and/or atelectasis at the left base, improved from prior exam. This suspected minimal left apical pneumothorax appears to be resolving. Yesterday patient had episode of presyncope, does get not on the commode, quickly recovered after being placed in bed, thought to be orthostatic, patient received 1 unit of packed red blood cells yesterday for a hemoglobin of 6.6. Today's hemoglobin is 7.2, WBC 7.5, platelet count is 79. Sodium is 138, potassium is 4.7, chloride is 109, BUN is 23, creatinine is 1.18. Patient is tolerating oral intake, his pain is reasonably controlled, 2 mediastinal and left pleural chest tubes are in place, and the output is serosanguineous, thin, there has been 325 out of the left chest tube, and 120 out of the knee diastolic chest tubes. One set of ventricular wires, with VVI backup rate. Sinus rhythm on the monitor, with a rate of 72 BPM. Maintenance IV fluids LR at a rate of 20 ML per hour. Objective - Vital Signs Vital signs: Vital Signs Temp 98.4 F 04/14/18 08:00 Pulse 79 04/14/18 08:00 Resp 25 H 04/14/18 08:00 BP 87/44 04/13/18 22:00 Pulse Ox 95 04/14/18 08:00 Intake & Output 04/13/18 04/14/18 04/14/18 18:59 06:59 18:59 Intake Total 888.850 276 23 Output Total 2085 1180 30 Balance -1196.150 -904 -7 Weight 68.3 kg 68.5 kg Intake: IV 564 276 23 ACETAMINOPHEN IV (For NPO 100 ) 1,000 mg In Empty Bag 1 bag @ 400 mls/hr IVPB Q6HR EMMA Rx#:[id number] Co/CI 60 Lactated Ringers 1,000 ml 350 240 20 @ 20 mls/hr IV .Q24H EMMA Rx#:[id number] Pressure Bag of 0.9 NaCl 54 36 3 Intake, IV Titration 14.850 Amount Insulin Regular 100 unit 14.850 In Sodium Chloride 0.9% 100 ml @ Per Protocol IV .Q0M EMMA Rx#:[id number] Blood Product 310 Rc As-1 Unit 310 [id number] Output: Chest Tube Drainage 620 445 30 Chest Tube Left 530 325 20 Mediastinal 90 120 10 Urine 1465 735 0 Other: Voiding Method Indwelling Catheter Indwelling Catheter ABP, PAP, CO, CI - Last Documented Arterial Blood Pressure 131/53 Pulmonary Artery Pressure 28/13 Cardiac Output 5.2 Cardiac Index 2.8 - Exam GENERAL EXAM: Alert, pleasant, 73-year-old white male comfortable in no apparent distress. HEAD: Normocephalic/atraumatic. EYES: Normal reaction of pupils, equal size. Conjunctiva pink, sclera white. NOSE: Clear with pink turbinates. THROAT: No erythema or exudates. NECK: No masses, no JVD, no thyroid enlargement, no adenopathy. CHEST: No chest wall deformity. Symmetrical expansion. Ventricular wires are connected to an external pacemaker with VVI backup rate. Intrinsic rhythm is sinus rhythm with a rate of 72 BPM. Midsternal incision is clean dry and intact , stable, covered with a surgical dressing, 2 mediastinal and left pleural chest tubes are in place, with small amount of serosanguineous drainage, connected to wall suction, no air leak noted. LUNGS: Equal air entry with diminished breath sounds at the bases, with some limited crackles bilaterally CVS: Regular rate and rhythm, normal S1 and S2, no gallops, no murmurs, no rubs ABDOMEN: Soft, nontender. No hepatosplenomegaly, normal bowel sounds, no guarding or rigidity. EXTREMITIES: No clubbing, no edema, no cyanosis, 2+ pulses and upper and lower extremities. Left lower extremity EVH site well approximated, covered with a dry intact dressing. MUSCULOSKELETAL: Muscle strength and tone normal. SPINE: No scoliosis or deformity SKIN: No rashes CENTRAL NERVOUS SYSTEM: Alert and oriented -3. No focal deficits, tone is normal in all 4 extremities. PSYCHIATRIC: Alert and oriented -3. Appropriate affect. Intact judgment and insight. - Labs CBC & Chem 7: 04/14/18 04:40 04/14/18 04:40 Labs: Abnormal Lab Results - Last 24 Hours (Table) 04/05/18 04/13/18 04/13/18 Range/Units 10:35 09:13 10:07 RBC (4.30-5.90) m/uL Hgb (13.0-17.5) gm/dL Hct (39.0-53.0) % Plt Count (150-450) k/uL Lymphocytes # (1.0-4.8) k/uL Chloride (98-107) mmol/L BUN (9-20) mg/dL Glucose (74-99) mg/dL POC Glucose (mg/dL) 115 H 117 H (75-99) mg/dL Alkaline Phosphatase (38-126) U/L Total Protein (6.3-8.2) g/dL Albumin (3.5-5.0) g/dL Crossmatch See Detail 04/13/18 04/13/18 04/13/18 Range/Units 11:08 12:36 13:01 RBC (4.30-5.90) m/uL Hgb (13.0-17.5) gm/dL Hct (39.0-53.0) % Plt Count (150-450) k/uL Lymphocytes # (1.0-4.8) k/uL Chloride (98-107) mmol/L BUN (9-20) mg/dL Glucose (74-99) mg/dL POC Glucose (mg/dL) 119 H 105 H 106 H (75-99) mg/dL Alkaline Phosphatase (38-126) U/L Total Protein (6.3-8.2) g/dL Albumin (3.5-5.0) g/dL Crossmatch 04/13/18 04/13/18 04/13/18 Range/Units 14:06 15:15 17:11 RBC (4.30-5.90) m/uL Hgb (13.0-17.5) gm/dL Hct (39.0-53.0) % Plt Count (150-450) k/uL Lymphocytes # (1.0-4.8) k/uL Chloride (98-107) mmol/L BUN (9-20) mg/dL Glucose (74-99) mg/dL POC Glucose (mg/dL) 111 H 135 H 147 H (75-99) mg/dL Alkaline Phosphatase (38-126) U/L Total Protein (6.3-8.2) g/dL Albumin (3.5-5.0) g/dL Crossmatch 04/13/18 04/14/18 04/14/18 Range/Units 21:01 04:40 04:40 RBC 2.18 L (4.30-5.90) m/uL Hgb 7.2 L (13.0-17.5) gm/dL Hct 20.8 L (39.0-53.0) % Plt Count 79 L (150-450) k/uL Lymphocytes # 0.7 L (1.0-4.8) k/uL Chloride 109 H (98-107) mmol/L BUN 23 H (9-20) mg/dL Glucose 123 H (74-99) mg/dL POC Glucose (mg/dL) 132 H (75-99) mg/dL Alkaline Phosphatase 37 L (38-126) U/L Total Protein 4.6 L (6.3-8.2) g/dL Albumin 2.9 L (3.5-5.0) g/dL Crossmatch 04/14/18 Range/Units 07:18 RBC (4.30-5.90) m/uL Hgb (13.0-17.5) gm/dL Hct (39.0-53.0) % Plt Count (150-450) k/uL Lymphocytes # (1.0-4.8) k/uL Chloride (98-107) mmol/L BUN (9-20) mg/dL Glucose (74-99) mg/dL POC Glucose (mg/dL) 127 H (75-99) mg/dL Alkaline Phosphatase (38-126) U/L Total Protein (6.3-8.2) g/dL Albumin (3.5-5.0) g/dL Crossmatch Assessment and Plan Plan: Assessment: Postop day #2, status post four-vessel bypass grafting Previous history of ST segment elevation myocardial infarction Postoperative ventilator management with extubation within the 4-6 hour window History of CAD with previous catheterization and stent placement History of hypertension History of hyperlipidemia History of kidney cancer with partial nephrectomy Lifelong nontobacco use History of BPH History of gastroesophageal reflux disease Plan: We will continue coverage and deep breathing and coughing, incentive spirometry use. Vital signs are stable, patient did have a episode of presyncope yesterday , no further episodes today, continue to monitor hemodynamics, urine output, episodes of hypotension and bradycardia. Doing well. Patient will remain in the ICU for further monitoring, I performed a history & physical examination of the patient and discussed their management with my nurse practitioner, Amarilys Gamino. I reviewed the nurse practitioner's note and agree with the documented findings and plan of care. Lung sounds are positive for bibasilar diminished breath sounds and crackles. The findings and the impression was discussed with the patient. I attest to the documentation by the nurse practitioner. Time with Patient: Greater than 30
--- NOTE | 2018-04-14 09:01 | P.PN ---
Subjective Progress Note Date: 04/14/18 Principal diagnosis: Coronary artery disease. Previous medical history of recent STEMI with placement of drug-eluting stent to the left anterior descending coronary artery , hypertension, hyperlipidemia, BPH, kidney cancer status post partial nephrectomy, self reducible right sided inguinal hernia, and family history of premature coronary artery disease with his father dying from myocardial infarction 50 years old. POD #2 coronary artery bypass grafting 4, left internal mammary artery to the left anterior descending artery, reverse saphenous vein graft to the obtuse marginal artery, reverse saphenous vein graft to the posterior descending artery , reverse saphenous vein graft to the diagonal artery, endoscopic vein harvesting of the left greater saphenous vein, intraoperative transesophageal echocardiogram. Postoperative acute blood loss anemia, an expected outcome of surgery given hemodilution and the use of cardiopulmonary bypass pump. Patient's currently sitting up in bed in no acute distress. Does complain of sternal pain which is controlled with current pain medication. Denies shortness of breath. Patient is currently hemodynamically stable on no vasopressors. He received 1 unit packed red blood cells yesterday and hemoglobin this morning is 7.2. Kiran was discontinued this morning. Objective - Vital Signs Vital signs: Vital Signs Temp 98.4 F 04/14/18 08:00 Pulse 79 04/14/18 08:00 Resp 25 H 04/14/18 08:00 BP 87/44 04/13/18 22:00 Pulse Ox 95 04/14/18 08:00 Intake & Output 04/13/18 04/14/18 04/14/18 18:59 06:59 18:59 Intake Total 888.850 276 23 Output Total 6502 1180 30 Balance -1196.150 -904 -7 Weight 68.3 kg 68.5 kg Intake: IV 564 276 23 ACETAMINOPHEN IV (For NPO 100 ) 1,000 mg In Empty Bag 1 bag @ 400 mls/hr IVPB Q6HR EMMA Rx#:[id number] Co/CI 60 Lactated Ringers 1,000 ml 350 240 20 @ 20 mls/hr IV .Q24H EMMA Rx#:[id number] Pressure Bag of 0.9 NaCl 54 36 3 Intake, IV Titration 14.850 Amount Insulin Regular 100 unit 14.850 In Sodium Chloride 0.9% 100 ml @ Per Protocol IV .Q0M EMMA Rx#:[id number] Blood Product 310 Rc As-1 Unit 310 [id number] Output: Chest Tube Drainage 620 445 30 Chest Tube Left 530 325 20 Mediastinal 90 120 10 Urine 1465 735 0 Other: Voiding Method Indwelling Catheter Indwelling Catheter ABP, PAP, CO, CI - Last Documented Arterial Blood Pressure 131/53 Pulmonary Artery Pressure 28/13 Cardiac Output 5.2 Cardiac Index 2.8 - Constitutional General appearance: Present: cooperative, no acute distress - Respiratory Details: Lungs sounds diminished bilaterally. Respirations even, nonlabored. Currently on 2 L nasal cannula with oxygen saturation 93%. Able to achieve 1000 mL on his incentive spirometry. Weak cough. Mediastinal chest tube to continuous wall suction, 70 mL serosanguineous drainage overnight, 100 mL in the last 24 hours. Left pleural chest tube to continuous wall suction, 155 mL serosanguineous drainage overnight, 500 mL in the last 24 hours. No air leaks present. - Cardiovascular Details: S1, S2 present. Regular rate and rhythm, sinus rhythm on telemetry. Sternum stable. Ventricular epicardial pacemaker wires present, grounded. Palpable peripheral pulses bilaterally. No edema present. No calf pain or tenderness noted. Right internal jugular Cordis, right radial arterial line present. Heart hugger place with patient demonstrating appropriate use. Antiembolism stockings, SCDs present. - Gastrointestinal Gastrointestinal Comment(s): Abdomen soft, nontender, nondistended. Hypoactive bowel sounds present 4 quadrants. Tolerating diet. Positive flatus, negative bowel movement. - Genitourinary Genitourinary Comment(s): Kiran discontinued this morning. Urine output overnight 45-100 mL per hour, 530 mL last 8 hours. - Integumentary Integumentary Comment(s): Skin is warm and dry with evidence of good perfusion. Anterior chest incision well approximated and covered with dry intact dressing, left lower extremity EVH site well approximated. - Neurologic Neurologic: Present: CNII-XII intact - Musculoskeletal Musculoskeletal: Present: gait normal, strength equal bilaterally - Psychiatric Psychiatric: Present: A&O x's 3, appropriate affect, intact judgment & insight - Allied health notes Allied health notes reviewed: nursing - Labs CBC & Chem 7: 04/14/18 04:40 04/14/18 04:40 Labs: Abnormal Lab Results - Last 24 Hours (Table) 09/19/18 09/27/18 09/27/18 Range/Units 10:35 09:13 10:07 RBC (4.30-5.90) m/uL Hgb (13.0-17.5) gm/dL Hct (39.0-53.0) % Plt Count (150-450) k/uL Lymphocytes # (1.0-4.8) k/uL Chloride (98-107) mmol/L BUN (9-20) mg/dL Glucose (74-99) mg/dL POC Glucose (mg/dL) 115 H 117 H (75-99) mg/dL Alkaline Phosphatase (38-126) U/L Total Protein (6.3-8.2) g/dL Albumin (3.5-5.0) g/dL Crossmatch See Detail 04/13/18 04/13/18 04/13/18 Range/Units 11:08 12:36 13:01 RBC (4.30-5.90) m/uL Hgb (13.0-17.5) gm/dL Hct (39.0-53.0) % Plt Count (150-450) k/uL Lymphocytes # (1.0-4.8) k/uL Chloride (98-107) mmol/L BUN (9-20) mg/dL Glucose (74-99) mg/dL POC Glucose (mg/dL) 119 H 105 H 106 H (75-99) mg/dL Alkaline Phosphatase (38-126) U/L Total Protein (6.3-8.2) g/dL Albumin (3.5-5.0) g/dL Crossmatch 04/13/18 04/13/18 04/13/18 Range/Units 14:06 15:15 17:11 RBC (4.30-5.90) m/uL Hgb (13.0-17.5) gm/dL Hct (39.0-53.0) % Plt Count (150-450) k/uL Lymphocytes # (1.0-4.8) k/uL Chloride (98-107) mmol/L BUN (9-20) mg/dL Glucose (74-99) mg/dL POC Glucose (mg/dL) 111 H 135 H 147 H (75-99) mg/dL Alkaline Phosphatase (38-126) U/L Total Protein (6.3-8.2) g/dL Albumin (3.5-5.0) g/dL Crossmatch 04/13/18 04/14/18 04/14/18 Range/Units 21:01 04:40 04:40 RBC 2.18 L (4.30-5.90) m/uL Hgb 7.2 L (13.0-17.5) gm/dL Hct 20.8 L (39.0-53.0) % Plt Count 79 L (150-450) k/uL Lymphocytes # 0.7 L (1.0-4.8) k/uL Chloride 109 H (98-107) mmol/L BUN 23 H (9-20) mg/dL Glucose 123 H (74-99) mg/dL POC Glucose (mg/dL) 132 H (75-99) mg/dL Alkaline Phosphatase 37 L (38-126) U/L Total Protein 4.6 L (6.3-8.2) g/dL Albumin 2.9 L (3.5-5.0) g/dL Crossmatch 04/14/18 Range/Units 07:18 RBC (4.30-5.90) m/uL Hgb (13.0-17.5) gm/dL Hct (39.0-53.0) % Plt Count (150-450) k/uL Lymphocytes # (1.0-4.8) k/uL Chloride (98-107) mmol/L BUN (9-20) mg/dL Glucose (74-99) mg/dL POC Glucose (mg/dL) 127 H (75-99) mg/dL Alkaline Phosphatase (38-126) U/L Total Protein (6.3-8.2) g/dL Albumin (3.5-5.0) g/dL Crossmatch - Imaging and Cardiology Chest x-ray: report reviewed, image reviewed Assessment and Plan (1) BPH (benign prostatic hyperplasia) Current Visit: Yes Status: Chronic Code(s): N40.0 - BENIGN PROSTATIC HYPERPLASIA WITHOUT LOWER URINRY TRACT SYMP SNOMED Code(s): 378331362 (2) CAD (coronary artery disease) Current Visit: Yes Status: Chronic Code(s): I25.10 - ATHSCL HEART DISEASE OF [place] CORONARY ARTERY W/O ANG PCTRS SNOMED Code(s): 80875091 (3) Family history of premature CAD Current Visit: Yes Status: Chronic Code(s): Z82.49 - FAMILY HX OF ISCHEM HEART DIS AND OTH DIS OF THE CIRC SYS SNOMED Code(s): 427587982 (4) History of coronary artery stent placement Current Visit: Yes Status: Chronic Code(s): Z95.5 - PRESENCE OF CORONARY ANGIOPLASTY IMPLANT AND GRAFT SNOMED Code(s): 588302630 (5) History of partial nephrectomy Current Visit: Yes Status: Chronic Code(s): Z90.5 - ACQUIRED ABSENCE OF KIDNEY SNOMED Code(s): 064613634 (6) Hyperlipidemia Current Visit: Yes Status: Chronic Code(s): E78.5 - HYPERLIPIDEMIA, UNSPECIFIED SNOMED Code(s): 60575276 (7) Hypertension Current Visit: Yes Status: Chronic Code(s): I10 - ESSENTIAL (PRIMARY) HYPERTENSION SNOMED Code(s): 02979194 (8) History of ST elevation myocardial infarction (STEMI) Current Visit: No Status: Resolved Code(s): I25.2 - OLD MYOCARDIAL INFARCTION SNOMED Code(s): 658737493345618 (9) History of kidney cancer Current Visit: No Status: Resolved Code(s): Z85.528 - PERSONAL HISTORY OF OTHER MALIGNANT NEOPLASM OF KIDNEY SNOMED Code(s): 085245377 Plan: 1. Continue low-dose aspirin, statin, Plavix, beta brian. Will increase beta brian therapy as tolerated. Will add back in MITCH inhibitor for afterload reduction. 2. Wean O2 as tolerated. Encourage incentive spirometry is 10 times every hour while awake. 3. Increase activity as tolerated. PT/OT/cardiac rehab following. 4. Will monitor daily labs and chest x-rays. 5. Insulin management per primary care service. 6. Will discontinue mediastinal chest tube. Discontinue cordis. 7. Pain management with current medication regimen. 8. GI prophylaxis with Protonix, DVT prophylaxis with subcu heparin and SCDs. 9. Will place transfer orders for 6 E. selective care. 10. More recommendations to follow. Time with Patient: Greater than 30
--- NOTE | 2018-04-14 10:30 | P.PN ---
Subjective Progress Note Date: 04/14/18 Patient seen and examined at bedside currently sitting up in bed post breakfast appears that the data proximally half of his meal. Does complain of sternal pain currently controlled with pain medication, had recurrent episode of symptomatic hypotension which resolved spontaneously, Kiran discontinued earlier today. No acute events overnight Objective - Vital Signs Vital signs: Vital Signs Temp 98.4 F 04/14/18 08:00 Pulse 75 04/14/18 10:00 Resp 21 04/14/18 10:00 BP 87/44 04/13/18 22:00 Pulse Ox 96 04/14/18 10:00 Intake & Output 04/13/18 04/14/18 04/14/18 18:59 06:59 18:59 Intake Total 888.850 276 92 Output Total 2085 1180 120 Balance -1196.150 -904 -28 Weight 68.3 kg 68.5 kg 68.5 kg Intake: IV 564 276 92 ACETAMINOPHEN IV (For NPO 100 ) 1,000 mg In Empty Bag 1 bag @ 400 mls/hr IVPB Q6HR EMMA Rx#:[id number] Co/CI 60 Lactated Ringers 1,000 ml 350 240 80 @ 20 mls/hr IV .Q24H EMMA Rx#:[id number] Pressure Bag of 0.9 NaCl 54 36 12 Intake, IV Titration 14.850 Amount Insulin Regular 100 unit 14.850 In Sodium Chloride 0.9% 100 ml @ Per Protocol IV .Q0M EMMA Rx#:[id number] Blood Product 310 Rc As-1 Unit 310 [id number] Output: Chest Tube Drainage 620 445 120 Chest Tube Left 530 325 70 Mediastinal 90 120 50 Urine 1465 735 0 Other: Voiding Method Indwelling Catheter Indwelling Catheter Urinal ABP, PAP, CO, CI - Last Documented Arterial Blood Pressure 122/49 Pulmonary Artery Pressure 28/13 Cardiac Output 5.2 Cardiac Index 2.8 - Exam Constitutional: No acute distress, conversant, pleasant Eyes: Anicteric sclerae, moist conjunctiva, no lid-lag, PERRLA ENMT: NC/AT,Oropharynx clear, no erythema, exudates Neck:Supple, FROM, no masses, or JVD, No carotid bruits; No thyromegaly Lungs: Clear to auscultation, Clear to percussion, Normal respiratory effort, no accessory muscle use on 2 L nasal cannula, left mediastinal mediastinal chest tube to continuous suction Cardiovascular: Heart regular in rate and rhythm, No murmurs, gallops, or rubs no peripheral edema, chest hugger in place, right IJ Cordis, right radial arteria l line Abdominal: Soft Nontender, nom distended, no guarding, no rebound or rigidity, Normoactive bowel sounds No hepatomegaly, No splenomegaly, No palpable mass No abdominal wall hernia noted Skin: Normal temperature, tone, texture, turgor, No induration No subcutaneous nodules, No rash, lesions, No ulcers Extremities:No digital cyanosis No clubbing, Pedal pulses intact and symmetrical Radial pulses intact and symmetrical Normal gait and station, No calf tenderness Psychiatric: Alert and oriented to person, place and time, Appropriate affect Intact judgement Neuro: Muscles Strength 5/5 in all 4 extremities, Sensation to light touch grossly present throughout, Cranial nerves II-XII grossly intact. No focal sensory deficits - Labs CBC & Chem 7: 04/17/18 06:17 04/17/18 06:17 Labs: Abnormal Lab Results - Last 24 Hours (Table) 04/05/18 04/13/18 04/13/18 Range/Units 10:35 11:08 12:36 RBC (4.30-5.90) m/uL Hgb (13.0-17.5) gm/dL Hct (39.0-53.0) % Plt Count (150-450) k/uL Lymphocytes # (1.0-4.8) k/uL Chloride (98-107) mmol/L BUN (9-20) mg/dL Glucose (74-99) mg/dL POC Glucose (mg/dL) 119 H 105 H (75-99) mg/dL Alkaline Phosphatase (38-126) U/L Total Protein (6.3-8.2) g/dL Albumin (3.5-5.0) g/dL Crossmatch See Detail 04/13/18 04/13/18 04/13/18 Range/Units 13:01 14:06 15:15 RBC (4.30-5.90) m/uL Hgb (13.0-17.5) gm/dL Hct (39.0-53.0) % Plt Count (150-450) k/uL Lymphocytes # (1.0-4.8) k/uL Chloride (98-107) mmol/L BUN (9-20) mg/dL Glucose (74-99) mg/dL POC Glucose (mg/dL) 106 H 111 H 135 H (75-99) mg/dL Alkaline Phosphatase (38-126) U/L Total Protein (6.3-8.2) g/dL Albumin (3.5-5.0) g/dL Crossmatch 04/13/18 04/13/18 04/14/18 Range/Units 17:11 21:01 04:40 RBC (4.30-5.90) m/uL Hgb (13.0-17.5) gm/dL Hct (39.0-53.0) % Plt Count (150-450) k/uL Lymphocytes # (1.0-4.8) k/uL Chloride 109 H (98-107) mmol/L BUN 23 H (9-20) mg/dL Glucose 123 H (74-99) mg/dL POC Glucose (mg/dL) 147 H 132 H (75-99) mg/dL Alkaline Phosphatase 37 L (38-126) U/L Total Protein 4.6 L (6.3-8.2) g/dL Albumin 2.9 L (3.5-5.0) g/dL Crossmatch 04/14/18 04/14/18 Range/Units 04:40 07:18 RBC 2.18 L (4.30-5.90) m/uL Hgb 7.2 L (13.0-17.5) gm/dL Hct 20.8 L (39.0-53.0) % Plt Count 79 L (150-450) k/uL Lymphocytes # 0.7 L (1.0-4.8) k/uL Chloride (98-107) mmol/L BUN (9-20) mg/dL Glucose (74-99) mg/dL POC Glucose (mg/dL) 127 H (75-99) mg/dL Alkaline Phosphatase (38-126) U/L Total Protein (6.3-8.2) g/dL Albumin (3.5-5.0) g/dL Crossmatch Assessment and Plan (1) CAD (coronary artery disease) Narrative/Plan: * POD #2 Status post four-vessel CABG * Continue with dual antiplatelet therapy, statins, MITCH inhibitor and beta brian * CT of surgery following Status: Chronic Code(s): I25.10 - ATHSCL HEART DISEASE OF [place] CORONARY ARTERY W/O ANG PCTRS SNOMED Code(s): 71512559 (2) History of coronary artery stent placement Status: Chronic Code(s): Z95.5 - PRESENCE OF CORONARY ANGIOPLASTY IMPLANT AND GRAFT SNOMED Code(s): 402918460 (3) Hyperlipidemia Narrative/Plan: * Continue statin therapy with Lipitor Status: Chronic Code(s): E78.5 - HYPERLIPIDEMIA, UNSPECIFIED SNOMED Code(s) : 53553100 (4) Hypertension Narrative/Plan: * Blood pressure stable controlled on current regimen Status: Chronic Code(s): I10 - ESSENTIAL (PRIMARY) HYPERTENSION SNOMED Code( s): 71070191 (5) History of ST elevation myocardial infarction (STEMI) Status: Resolved Code(s): I25.2 - OLD MYOCARDIAL INFARCTION SNOMED Code(s): 332308873543828 (6) S/P CABG x 4 Status: Acute Code(s): Z95.1 - PRESENCE OF AORTOCORONARY BYPASS GRAFT SNOMED Code(s): 696129176 Plan: Patient doing well Anticipated discharge to 3 days *
[2018-04-14] MEDS: LACTATED RINGERS 1,000 ML IV SCH (12:11)
[2018-04-14 12:12] LABS: Glucose,Whole Blood 156 mg/dL (75-99)
--- NOTE | 2018-04-14 14:17 | P.PN ---
Subjective Patient is sitting up in chair. He is doing very well. Blood pressure is 100 120 systolic. The arterial line blood pressures are higher than the manual blood pressures. His mucosae are moist pulse rate in the 60s and 70s respirations normal Breath sounds are reduced bilaterally Heart sounds S1 and S2 are soft and normal No lower symmetry edema Impression coronary artery disease him a recent ST elevation PA status post stenting to the LAD now coronary bypass grafting and doing well Suggest Continue antiplatelet therapy continue beta blockers and continue statins and continue postoperative CT surgery care Objective - Vital Signs Vital signs: Vital Signs Temp 98.4 F 04/14/18 08:00 Pulse 69 04/14/18 12:02 Resp 15 04/14/18 11:00 BP 106/45 04/14/18 11:00 Pulse Ox 98 04/14/18 11:00 Intake & Output 04/13/18 04/14/18 04/14/18 18:59 06:59 18:59 Intake Total 888.850 276 92 Output Total 2085 1180 120 Balance -1196.150 -904 -28 Weight 68.3 kg 68.5 kg 68.5 kg Intake: IV 564 276 92 ACETAMINOPHEN IV (For NPO 100 ) 1,000 mg In Empty Bag 1 bag @ 400 mls/hr IVPB Q6HR [facility] Rx#:[id number] Co/CI 60 Lactated Ringers 1,000 ml 350 240 80 @ 20 mls/hr IV .Q24H [facility] Rx#:[id number] Pressure Bag of 0.9 NaCl 54 36 12 Intake, IV Titration 14.850 Amount Insulin Regular 100 unit 14.850 In Sodium Chloride 0.9% 100 ml @ Per Protocol IV .Q0M [facility] Rx#:[id number] Blood Product 310 Rc As-1 Unit 310 [id number] Output: Chest Tube Drainage 620 445 120 Chest Tube Left 530 325 70 Mediastinal 90 120 50 Urine 1465 735 0 Other: Voiding Method Indwelling Catheter Indwelling Catheter Urinal ABP, PAP, CO, CI - Last Documented Arterial Blood Pressure 92/32 Pulmonary Artery Pressure 28/13 Cardiac Output 5.2 Cardiac Index 2.8 - Labs CBC & Chem 7: 04/14/18 04:40 04/14/18 04:40 Labs: Abnormal Lab Results - Last 24 Hours (Table) 09/19/18 09/27/18 09/27/18 Range/Units 10:35 15:15 17:11 RBC (4.30-5.90) m/uL Hgb (13.0-17.5) gm/dL Hct (39.0-53.0) % Plt Count (150-450) k/uL Lymphocytes # (1.0-4.8) k/uL Chloride (98-107) mmol/L BUN (9-20) mg/dL Glucose (74-99) mg/dL POC Glucose (mg/dL) 135 H 147 H (75-99) mg/dL Alkaline Phosphatase (38-126) U/L Total Protein (6.3-8.2) g/dL Albumin (3.5-5.0) g/dL Crossmatch See Detail 04/13/18 04/14/18 04/14/18 Range/Units 21:01 04:40 04:40 RBC 2.18 L (4.30-5.90) m/uL Hgb 7.2 L (13.0-17.5) gm/dL Hct 20.8 L (39.0-53.0) % Plt Count 79 L (150-450) k/uL Lymphocytes # 0.7 L (1.0-4.8) k/uL Chloride 109 H (98-107) mmol/L BUN 23 H (9-20) mg/dL Glucose 123 H (74-99) mg/dL POC Glucose (mg/dL) 132 H (75-99) mg/dL Alkaline Phosphatase 37 L (38-126) U/L Total Protein 4.6 L (6.3-8.2) g/dL Albumin 2.9 L (3.5-5.0) g/dL Crossmatch 04/14/18 04/14/18 Range/Units 07:18 12:11 RBC (4.30-5.90) m/uL Hgb (13.0-17.5) gm/dL Hct (39.0-53.0) % Plt Count (150-450) k/uL Lymphocytes # (1.0-4.8) k/uL Chloride (98-107) mmol/L BUN (9-20) mg/dL Glucose (74-99) mg/dL POC Glucose (mg/dL) 127 H 156 H (75-99) mg/dL Alkaline Phosphatase (38-126) U/L Total Protein (6.3-8.2) g/dL Albumin (3.5-5.0) g/dL Crossmatch
[2018-04-14] MEDS: CLEVIDIPINE BUTYRATE 25 MG in EMPTY BAG 1 BAG IV SCH (15:31)
[2018-04-14] MEDS ORDERED: DEXTROSE 5% IN WATER 100 ML with AMIODARONE 150 MG IV ONE (16:45)
[2018-04-14] MEDS: AMIODARONE 450 MG in DEXTROSE 5% IN WATER 250 ML IV PRN ×2 (16:54)
[2018-04-14 17:02] LABS: Glucose,Whole Blood 173 mg/dL (75-99)
[2018-04-14 20:59] LABS: Glucose,Whole Blood 168 mg/dL (75-99)
[2018-04-14] MEDS: SENNOSIDES-DOCUSATE SODIUM 1 EACH TAB PO SCH (21:56)
[2018-04-14] MEDS: TAMSULOSIN 0.4 MG CAP.ER.24H PO SCH (21:57)
[2018-04-15] MEDS: HYDROcodone/APAP 5-325MG 1 EACH TAB PO PRN ×3 (04:19→16:36)
[2018-04-15 05:25] LABS: Basophils % (A) 0 %; Eosinophils # (A) 0.1 k/uL (0-0.7); Eosinophils % (A) 2 %; HGB 7.1 gm/dL (13.0-17.5); Lymphocytes # (A) 1.2 k/uL (1.0-4.8); Lymphocytes % (A) 14 %; MCH 32.5 pg (25.0-35.0); MCHC 33.6 g/dL (31.0-37.0); MCV 96.9 fL (80.0-100.0); Mean Platelet Volume 8.5; Monocytes # (A) 0.7 k/uL (0-1.0); Monocytes % (A) 8 %; Neutrophils % (A) 74 %; Platelet Count 102 k/uL (150-450); RBC 2.17 m/uL (4.30-5.90); RDW 13.8 % (11.5-15.5); WBC 8.1 k/uL (3.8-10.6)
[2018-04-15 05:37] LABS: Albumin 2.8 g/dL (3.5-5.0); Calcium 8.4 mg/dL (8.4-10.2); Phosphorus 3.1 mg/dL (2.5-4.5); Potassium 4.5 mmol/L (3.5-5.1); Total Bilirubin 0.9 mg/dL (0.2-1.3); Total Protein 4.7 g/dL (6.3-8.2)
[2018-04-15 07:27] LABS: Glucose,Whole Blood 127 mg/dL (75-99)
--- NOTE | 2018-04-15 07:28 | XR ---
EXAMINATION TYPE: XR chest 1V portable DATE OF EXAM: 04/15/2018 HISTORY: post cardiac surgery. REFERENCE: Previous study dated 04/14/2018. FINDINGS: There has been a midline sternotomy. The patient right internal jugular sheath is been alie velvet. There is left basilar airspace disease. There is a small left effusion. Heart size is within normal l imits. IMPRESSION: 1. CONTINUING LEFT BASILAR AIRSPACE DISEASE. 2. SMALL LEFT EFFUSION.
[2018-04-15] MEDS: INSULIN ASPART 100 UNIT/ML 1 ML 10 ML VIAL SQ SCH ×4 (07:48→21:18)
[2018-04-15] MEDS: PANTOPRAZOLE 40 MG TABLET PO SCH (07:48)
[2018-04-15] MEDS: HEPARIN SODIUM,PORCINE 5,000 UNIT/ML 1 ML VIAL SQ SCH ×3 (07:52→22:54)
[2018-04-15] MEDS: ATORVASTATIN 40 MG TAB PO SCH (08:02)
[2018-04-15] MEDS: CLOPIDOGREL 75 MG TAB PO SCH (08:02)
[2018-04-15] MEDS: ASPIRIN 81 MG PO SCH (08:02)
[2018-04-15] MEDS: METOPROLOL TARTRATE 12.5 MG TAB PO SCH ×2 (08:03→19:43)
[2018-04-15] MEDS: MUPIROCIN 2% OINT 22 GM TUBE NASAL SCH ×2 (08:03→19:44)
[2018-04-15] MEDS: AMIODARONE 200 MG TAB PO SCH ×2 (08:04→19:43)
--- NOTE | 2018-04-15 08:04 | P.PN ---
Subjective Progress Note Date: 04/15/18 Principal diagnosis: Coronary artery disease. Previous medical history of recent STEMI with placement of drug-eluting stent to the left anterior descending coronary artery , hypertension, hyperlipidemia, BPH, kidney cancer status post partial nephrectomy, self reducible right sided inguinal hernia, and family history of premature coronary artery disease with his father dying from myocardial infarction 50 years old. POD #3 coronary artery bypass grafting 4, left internal mammary artery to the left anterior descending artery, reverse saphenous vein graft to the obtuse marginal artery, reverse saphenous vein graft to the posterior descending artery , reverse saphenous vein graft to the diagonal artery, endoscopic vein harvesting of the left greater saphenous vein, intraoperative transesophageal echocardiogram. Postoperative acute blood loss anemia, an expected outcome of surgery given hemodilution and the use of cardiopulmonary bypass pump. Postoperative atrial fibrillation with rapid ventricular response, an expected outcome of surgery. Patient's currently sitting up in a recliner in no acute distress. States his sternal pain is well controlled with current pain medication, he does feel his bones clicking with coughing. Denies shortness of breath. Patient is currently hemodynamically stable. He went into atrial fibrillation with rapid ventricular response yesterday requiring initiation of amiodarone with conversion back to sinus rhythm. Kiran catheter was discontinued yesterday but patient has been unable to void and has had to be straight cathed. He does have a history of BPH and is on Flomax. Mediastinal chest tubes were discontinued yesterday. Transfer orders were placed for [facility] care yesterday, however when he went into atrial fibrillation decision was made to keep him in the intensive care unit. Objective - Vital Signs Vital signs: Vital Signs Temp 97.6 F 04/15/18 04:00 Pulse 67 04/15/18 06:00 Resp 28 H 04/15/18 06:00 BP 113/50 04/15/18 06:00 Pulse Ox 93 L 04/15/18 06:00 Intake & Output 04/14/18 04/15/18 04/15/18 18:59 06:59 18:59 Intake Total 204 330.633 Output Total 570 815 Balance -450 -634.367 Weight 68.5 kg 71.6 kg Intake: IV 204 120 LR 20 120 Lactated Ringers 1,000 ml 160 @ 20 mls/hr IV .Q24H [facility] Rx#:[id number] Pressure Bag of 0.9 NaCl 24 Intake, IV Titration 210.633 Amount Amiodarone 450 mg In 210.633 Dextrose 5% in Water 250 ml @ 1 MG/MIN 34.53 mls/ hr IV .Q7H31M PRN Rx#: [id number] Output: Chest Tube Drainage 170 215 Chest Tube Left 120 215 Mediastinal 50 Urine 400 600 Other: Voiding Method Urinal Urinal ABP, PAP, CO, CI - Last Documented Arterial Blood Pressure 131/42 Pulmonary Artery Pressure 28/13 Cardiac Output 5.2 Cardiac Index 2.8 - Constitutional General appearance: Present: cooperative, no acute distress - Respiratory Details: Lungs sounds diminished bilaterally. Respirations even, nonlabored. Currently on 2 L nasal cannula with oxygen saturation 96%. Able to achieve 750 mL on his incentive spirometry. Strong cough. Left pleural chest tube to continuous wall suction, 95 mL serosanguineous drainage overnight, 250 mL in the last 24 hours. No air leaks present. - Cardiovascular Details: S1, S2 present. Regular rate and rhythm, sinus rhythm on telemetry. Sternum stable. Ventricular epicardial pacemaker wires present, grounded. Palpable peripheral pulses bilaterally. No edema present. No calf pain or tenderness noted. Heart hugger place with patient demonstrating appropriate use. Antiembolism stockings, SCDs present. - Gastrointestinal Gastrointestinal Comment(s): Abdomen soft, nontender, nondistended. Active bowel sounds present 4 quadrants. Tolerating diet. Positive flatus, negative bowel movement. - Genitourinary Genitourinary Comment(s): Kiran discontinued yesterday. Patient unable to void, was straight cathed yesterday afternoon and overnight. - Integumentary Integumentary Comment(s): Skin is warm and dry with evidence of good perfusion. Anterior chest incision well approximated and covered with dry intact dressing, left lower extremity EVH site well approximated. - Neurologic Neurologic: Present: CNII-XII intact - Musculoskeletal Musculoskeletal: Present: gait normal, strength equal bilaterally - Psychiatric Psychiatric: Present: A&O x's 3, appropriate affect, intact judgment & insight - Allied health notes Allied health notes reviewed: nursing - Labs CBC & Chem 7: 04/15/18 05:00 04/15/18 05:00 Labs: Abnormal Lab Results - Last 24 Hours (Table) 04/14/18 04/14/18 04/14/18 Range/Units 12:11 16:52 20:57 RBC (4.30-5.90) m/uL Hgb (13.0-17.5) gm/dL Hct (39.0-53.0) % Plt Count (150-450) k/uL BUN (9-20) mg/dL Glucose (74-99) mg/dL POC Glucose (mg/dL) 156 H 173 H 168 H (75-99) mg/dL Total Protein (6.3-8.2) g/dL Albumin (3.5-5.0) g/dL 04/15/18 04/15/18 04/15/18 Range/Units 05:00 05:00 07:26 RBC 2.17 L (4.30-5.90) m/uL Hgb 7.1 L (13.0-17.5) gm/dL Hct 21.0 L (39.0-53.0) % Plt Count 102 L (150-450) k/uL BUN 27 H (9-20) mg/dL Glucose 127 H (74-99) mg/dL POC Glucose (mg/dL) 127 H (75-99) mg/dL Total Protein 4.7 L (6.3-8.2) g/dL Albumin 2.8 L (3.5-5.0) g/dL - Imaging and Cardiology Chest x-ray: report reviewed, image reviewed Assessment and Plan (1) BPH (benign prostatic hyperplasia) Current Visit: Yes Status: Chronic Code(s): N40.0 - BENIGN PROSTATIC HYPERPLASIA WITHOUT LOWER URINRY TRACT SYMP SNOMED Code(s): 331264769 (2) CAD (coronary artery disease) Current Visit: Yes Status: Chronic Code(s): I25.10 - ATHSCL HEART DISEASE OF [place] CORONARY ARTERY W/O ANG PCTRS SNOMED Code(s): 30268521 (3) Family history of premature CAD Current Visit: Yes Status: Chronic Code(s): Z82.49 - FAMILY HX OF ISCHEM HEART DIS AND OTH DIS OF THE CIRC SYS SNOMED Code(s): 801377454 (4) History of coronary artery stent placement Current Visit: Yes Status: Chronic Code(s): Z95.5 - PRESENCE OF CORONARY ANGIOPLASTY IMPLANT AND GRAFT SNOMED Code(s): 813763783 (5) History of partial nephrectomy Current Visit: Yes Status: Chronic Code(s): Z90.5 - ACQUIRED ABSENCE OF KIDNEY SNOMED Code(s): 213532179 (6) Hyperlipidemia Current Visit: Yes Status: Chronic Code(s): E78.5 - HYPERLIPIDEMIA, UNSPECIFIED SNOMED Code(s): 13794998 (7) Hypertension Current Visit: Yes Status: Chronic Code(s): I10 - ESSENTIAL (PRIMARY) HYPERTENSION SNOMED Code(s): 38067896 (8) History of ST elevation myocardial infarction (STEMI) Current Visit: No Status: Resolved Code(s): I25.2 - OLD MYOCARDIAL INFARCTION SNOMED Code(s): 520353077482882 (9) History of kidney cancer Current Visit: No Status: Resolved Code(s): Z85.528 - PERSONAL HISTORY OF OTHER MALIGNANT NEOPLASM OF KIDNEY SNOMED Code(s): 745776526 Plan: 1. Continue low-dose aspirin, statin, Plavix, beta brian. Will increase beta brian therapy as tolerated. 2. Continue amiodarone for A. fib prophylaxis. Will transition to oral amiodarone. 3. Wean O2 as tolerated. Encourage incentive spirometry is 10 times every hour while awake. 4. Increase activity as tolerated. PT/OT/cardiac rehab following. 5. Will monitor daily labs and chest x-rays. 6. Insulin management per primary care service. 7. Will discontinue left pleural chest tube. 8. Will give Lasix at 20 mg IV push 1 today. 9. Bladder scan 1 more time within 6 hours. If need to straight cath again may replace Kirna catheter. 10. Pain management with current medication regimen. 11. GI prophylaxis with Protonix, DVT prophylaxis with subcu heparin and SCDs. 12. If patient remains stable with no more episodes of A. fib may transfer to [facility] care later this afternoon. 13. More recommendations to follow. Time with Patient: Greater than 30
[2018-04-15] MEDS: IPRATROPIUM-ALBUTEROL 3 ML NEB INHALATION SCH ×4 (08:27→21:31)
--- NOTE | 2018-04-15 08:28 | P.PN ---
Subjective Progress Note Date: 04/15/18 Principal diagnosis: Medical management after CABG Patient was seen and examined. Patient is CABG POD 2. Reports of A. fib on telemetry, Dr. Butt notified, Amiodarone drip started. Blood pressure is 113/ 50, pulse of 67. Patient reports mild sternal pain. Chest pain is 4-5 out of 10. Pain is worsened with deep inspiration and with movement. Pain is well-controlled with current [place] regimen. Patient does report difficulty urinating since his surgery. He has been straight cathed for urinary retention. Patient denies any dysuria or hematuria. Patient reports urinary frequency, hesitancy, weak stream at home. He reports a history of BPH. Flomax started 04/13/2018. Objective - Vital Signs Vital signs: Vital Signs Temp 97.6 F 04/15/18 04:00 Pulse 67 04/15/18 06:00 Resp 28 H 04/15/18 06:00 BP 113/50 04/15/18 06:00 Pulse Ox 93 L 04/15/18 06:00 Intake & Output 04/14/18 04/15/18 04/15/18 18:59 06:59 18:59 Intake Total 204 330.633 Output Total 570 815 Balance -366 484.367 Weight 68.5 kg 71.6 kg Intake: IV 204 120 LR 20 120 Lactated Ringers 1,000 ml 160 @ 20 mls/hr IV .Q24H [facility] Rx#:[id number] Pressure Bag of 0.9 NaCl 24 Intake, IV Titration 210.633 Amount Amiodarone 450 mg In 210.633 Dextrose 5% in Water 250 ml @ 1 MG/MIN 34.53 mls/ hr IV .Q7H31M PRN Rx#: [id number] Output: Chest Tube Drainage 170 215 Chest Tube Left 120 215 Mediastinal 50 Urine 400 600 Other: Voiding Method Urinal Urinal ABP, PAP, CO, CI - Last Documented Arterial Blood Pressure 131/42 Pulmonary Artery Pressure 28/13 Cardiac Output 5.2 Cardiac Index 2.8 - Exam General: [non toxic], [no distress], [appears at stated age] Derm: [warm], [dry] Head: [atraumatic], [normocephalic], [symmetric] Eyes: [EOMI], [no lid lag], [anicteric sclera] Mouth: [no lip lesion], [mucus membranes moist] Cardiovascular: [S1S2 reg], [no murmur], [positive DP pulse bilateral], [ sternal dressings c/d/i], [L chest tube with 250 cc over 24H], [Heart hugger in place] Lungs: [Decreased breath sounds bilateral], [no rhonchi, no rales] , [no accessory muscle use] Abdominal: [soft], [ nontender to palpation], [no guarding], [no appreciable organomegaly] Ext: [no gross muscle atrophy], [no edema], [no contractures] Psych: [Alert], [oriented], [appropriate affect] - Labs CBC & Chem 7: 04/15/18 05:00 04/15/18 05:00 Labs: Abnormal Lab Results - Last 24 Hours (Table) 04/14/18 04/14/18 04/14/18 Range/Units 07:18 12:11 16:52 RBC (4.30-5.90) m/uL Hgb (13.0-17.5) gm/dL Hct (39.0-53.0) % Plt Count (150-450) k/uL BUN (9-20) mg/dL Glucose (74-99) mg/dL POC Glucose (mg/dL) 127 H 156 H 173 H (75-99) mg/dL Total Protein (6.3-8.2) g/dL Albumin (3.5-5.0) g/dL 04/14/18 04/15/18 04/15/18 Range/Units 20:57 05:00 05:00 RBC 2.17 L (4.30-5.90) m/uL Hgb 7.1 L (13.0-17.5) gm/dL Hct 21.0 L (39.0-53.0) % Plt Count 102 L (150-450) k/uL BUN 27 H (9-20) mg/dL Glucose 127 H (74-99) mg/dL POC Glucose (mg/dL) 168 H (75-99) mg/dL Total Protein 4.7 L (6.3-8.2) g/dL Albumin 2.8 L (3.5-5.0) g/dL 04/15/18 Range/Units 07:26 RBC (4.30-5.90) m/uL Hgb (13.0-17.5) gm/dL Hct (39.0-53.0) % Plt Count (150-450) k/uL BUN (9-20) mg/dL Glucose (74-99) mg/dL POC Glucose (mg/dL) 127 H (75-99) mg/dL Total Protein (6.3-8.2) g/dL Albumin (3.5-5.0) g/dL Assessment and Plan Assessment: Assessment and Plan 1. CAD: s/p CABG 03/13 (MEJIAS to LAD, SVG to OM PDA DIAG). Troponin 0.02, peaked at 12.1 on 01/12 s/p SHARON in 12/2017. Cath 03/2018 showed triple vessel CAD within the LAD and stenosis of the LCx and RCA. CT Surgery following - continue post operative management. Most recent CXR shows small L effusion with L basilar airspace disease. A1c and Lipid panel within normal limits. Continue ASA 81 mg PO QD, Plavix 75 mg PO QD and Lipitor 40 mg PO QHS. Continue Metoprolol 12.5 mg PO BID. Will consider adding ACEi. Pain management with [place] PRN. Cardiac diet. Incentive spirometry. Daily CBC and CXRs. FU PT/OT for cardiac rehab, CT Surgery recommendations. 2. A-Fib: New onset post CABG. Amiodarone drip overnight, to DC and start Amiodarone 400 mg PO BID. Continue Metoprolol 12.5 mg PO BID. Telemetry monitoring. Keep Mg > 2 and K > 4. Will need to discus need for AC with Cardiology. FU Cardiology 3. Anemia: Likely due to acute blood loss from CAGB. Hg as low at 6.6 on 04/13, transfused 1 PRBC. Hg maintaining at 7.1-7.2 since. Transfuse when Hg < 7.0. Daily CBC. 4. Prerenal azotemia: BUN 27, Cr within normal limits. Likely from dehydration. LR at 20 cc/h. Encourage PO hydration. Daily BMP. 5. Urinary retention: History of BPH and recent Sx. Continue Flomax 0.4 mg PO QHS. Bladder scan and straight cath as needed. Creatinine is stable since admission. Possible Urology consult if not improved. FU UA 6. DVT Prophylaxis: SCD boots only. Protonix 40 mg PO QAM.
[2018-04-15] MEDS ORDERED: FUROSEMIDE 10 MG/ML 2 ML VIAL IV ONE (08:32)
--- NOTE | 2018-04-15 10:47 | P.PN ---
Subjective Progress Note Date: 04/15/18 Principal diagnosis: Coronary artery disease, status post coronary artery bypass grafting 4 This is a 73-year-old male who is postop day #1 status post four-vessel bypass grafting. The patient is currently doing relatively well and he was extubated within the 4-6 hour timeframe. Currently he is on O2 at between 2-4 L/m. He is getting lactated Ringer's at 50 mL an hour and insulin drip at less than 1 unit per hour and he was on nitroglycerin but that has been turned off. His chest x-ray shows some bibasilar atelectasis and small bilateral effusions and postoperative changes. He does have a previous history of CAD with a recent ST segment elevation myocardial infarction and placement of a drug-eluting stent to the left anterior descending coronary artery. He also has a history of hypertension hyperlipidemia BPH kidney cancer, status post partial nephrectomy and a family history of CAD. The patient presented to the primary care physician's office on January 12 with complaints of chest pain shortness of breath sweats nausea and lightheadedness as well as an ST elevation on EKG. Subsequent evaluation revealed significant CAD. Again the patient had surgery yesterday and is doing very well today. The patient really has no complaints although apparently this morning had a near syncopal episode so he is back in bed. This is why the nitroglycerin was turned off. The patient apparently has a history of never having used tobacco products. No significant alcohol or illicit drug use either. On 04/06/2018, patient seen in follow-up in the intensive care unit. Resting comfortably in bed, in no acute distress, he is awake alert oriented 3. On 2 L per nasal cannula, his pulse ox is 95%, I asked effort is 1000 mL today. Lung sounds are positive for diminished breath sounds at the bases, with some limited crackles bilaterally, today's chest x-ray shows minimal left pleural effusion and/or atelectasis at the left base, improved from prior exam. This suspected minimal left apical pneumothorax appears to be resolving. Yesterday patient had episode of presyncope, does get not on the commode, quickly recovered after being placed in bed, thought to be orthostatic, patient received 1 unit of packed red blood cells yesterday for a hemoglobin of 6.6. Today's hemoglobin is 7.2, WBC 7.5, platelet count is 79. Sodium is 138, potassium is 4.7, chloride is 109, BUN is 23, creatinine is 1.18. Patient is tolerating oral intake, his pain is reasonably controlled, 2 mediastinal and left pleural chest tubes are in place, and the output is serosanguineous, thin, there has been 325 out of the left chest tube, and 120 out of the knee diastolic chest tubes. One set of ventricular wires, with VVI backup rate. Sinus rhythm on the monitor, with a rate of 72 BPM. Maintenance IV fluids LR at a rate of 20 ML per hour. The patient is seen again today 04/15/2018 in follow-up in the intensive care unit. He is awake and alert in no acute distress. He is currently sitting up in a chair at the bedside. He denies any worsening shortness of breath, cough or congestion. His chest x-ray shows some bibasilar atelectasis. He is maintaining good O2 saturations in the 90s on 2 L/m per nasal cannula. He is working well with the incentive spirometer. His pain is well controlled. He did have issues with atrial fibrillation and is on amiodarone drip at 0.5 mg/m. He is currently in sinus rhythm. He is afebrile. White count 8.1. Hemoglobin 7.1. Creatinine 1.17. Objective - Vital Signs Vital signs: Vital Signs Temp 97.9 F 04/15/18 08:00 Pulse 67 04/15/18 10:00 Resp 12 04/15/18 10:00 BP 101/40 04/15/18 10:00 Pulse Ox 98 04/15/18 10:00 Intake & Output 04/14/18 04/15/18 04/15/18 18:59 06:59 18:59 Intake Total 204 330.633 40 Output Total 570 815 40 Balance -366 -484.367 0 Weight 68.5 kg 71.6 kg Intake: IV 204 120 40 LR 20 120 40 Lactated Ringers 1,000 ml 160 @ 20 mls/hr IV .Q24H [facility] Rx#:[id number] Pressure Bag of 0.9 NaCl 24 Intake, IV Titration 210.633 Amount Amiodarone 450 mg In 210.633 Dextrose 5% in Water 250 ml @ 1 MG/MIN 34.53 mls/ hr IV .Q7H31M PRN Rx#: [id number] Output: Chest Tube Drainage 170 215 40 Chest Tube Left 120 215 40 Mediastinal 50 Urine 400 600 Other: Voiding Method Urinal Urinal Urinal ABP, PAP, CO, CI - Last Documented Arterial Blood Pressure 131/42 Pulmonary Artery Pressure 28/13 Cardiac Output 5.2 Cardiac Index 2.8 - Exam GENERAL EXAM: Alert, active, comfortable in no apparent distress. HEAD: Normocephalic. EYES: Normal reaction of pupils, equal size. NOSE: Clear with pink turbinates. THROAT: No erythema or exudates. NECK: No masses, no JVD. CHEST: Heart hugger in place. Dressing dry and intact. Sternum stable. LUNGS: Equal air entry with faint crackles in the bilateral posterior bases. CVS: S1 and S2 normal with no audible murmur, regular rhythm. ABDOMEN: No hepatosplenomegaly, normal bowel sounds, no guarding or rigidity. SPINE: No scoliosis or deformity SKIN: No rashes CENTRAL NERVOUS SYSTEM: No focal deficits, tone is normal in all 4 extremities. EXTREMITIES: There is no peripheral edema. No clubbing, no cyanosis. Peripheral pulses are intact. - Labs CBC & Chem 7: 04/15/18 05:00 04/15/18 05:00 Labs: Abnormal Lab Results - Last 24 Hours (Table) 04/14/18 04/14/18 04/14/18 Range/Units 12:11 16:52 20:57 RBC (4.30-5.90) m/uL Hgb (13.0-17.5) gm/dL Hct (39.0-53.0) % Plt Count (150-450) k/uL BUN (9-20) mg/dL Glucose (74-99) mg/dL POC Glucose (mg/dL) 156 H 173 H 168 H (75-99) mg/dL Total Protein (6.3-8.2) g/dL Albumin (3.5-5.0) g/dL 04/15/18 04/15/18 04/15/18 Range/Units 05:00 05:00 07:26 RBC 2.17 L (4.30-5.90) m/uL Hgb 7.1 L (13.0-17.5) gm/dL Hct 21.0 L (39.0-53.0) % Plt Count 102 L (150-450) k/uL BUN 27 H (9-20) mg/dL Glucose 127 H (74-99) mg/dL POC Glucose (mg/dL) 127 H (75-99) mg/dL Total Protein 4.7 L (6.3-8.2) g/dL Albumin 2.8 L (3.5-5.0) g/dL Assessment and Plan Assessment: Impression: #1 Coronary artery disease status post four-vessel bypass grafting 4 utilizing a MEJIAS to the LAD, reverse saphenous vein grafts to the obtuse marginal artery, posterior descending artery, diagonal artery. Postoperative day #3. #[address] segment elevation myocardial infarction. #3 Previous history of coronary artery disease with stent placement. #4 Hypertension. #5 Hyperlipidemia. #6 History of kidney cancer with partial nephrectomy. #7 Chronic tobacco dependence. #8 Benign prostatic hypertrophy. #9 Gastroesophageal reflux disease. Plan: The patient was seen and evaluated by Dr. Mercado. Chest x-ray and labs were reviewed. He is currently stable from the pulmonary and critical care standpoint. He could be transferred out to the selective care unit today once the amiodarone drip is off. We'll continue with his current treatment plan. He is again encouraged regarding increased use the incentive spirometer and cough and deep breathing exercises. We will continue to follow and make further recommendations based on his clinical status. Critical care time 36 minutes. I, the cosigning physician, performed a history & physical examination of the patient. Lungs sounds with crackles in the bilateral posterior bases. Maintaining good O2 saturations in the 90s on 2 L/m per nasal cannula. I discussed the assessment and plan of care with my nurse practitioner, Shea Bennett. I attest to the above note as dictated by her. Time with Patient: Greater than 30
--- NOTE | 2018-04-15 11:29 | P.PN ---
Subjective Progress Note Date: 04/15/18 This is a 73-year-old male who is postop day #2 status post four-vessel bypass grafting. The patient is currently doing relatively well and he was extubated within the 4-6 hour timeframe. Currently he is on O2 at between 2-4 L/m. He is getting lactated Ringer's at 50 mL an hour and insulin drip at less than 1 unit per hour and he was on nitroglycerin but that has been turned off. His chest x-ray shows some bibasilar atelectasis and small bilateral effusions and postoperative changes. He does have a previous history of CAD with a recent ST segment elevation myocardial infarction and placement of a drug-eluting stent to the left anterior descending coronary artery. He also has a history of hypertension hyperlipidemia BPH kidney cancer, status post partial nephrectomy and a family history of CAD. The patient presented to the primary care physician's office on January 12 with complaints of chest pain shortness of breath sweats nausea and lightheadedness as well as an ST elevation on EKG. Subsequent evaluation revealed significant CAD. Again the patient had surgery yesterday and is doing very well today. Patient does state that he attempted to ambulate this morning and became very dizzy and lightheaded, felt as though he may pass out. Chest x-ray from today does show some bibasilar atelectasis. Pain is under good control. Patient did have issues with atrial fibrillation and is currently on amiodarone drip. Maintaining normal sinus rhythm. He is afebrile. White blood cell count 8.1, hemoglobin 7.1, creatinine 1.1. Objective - Vital Signs Vital signs: Vital Signs Temp 97.9 F 04/15/18 08:00 Pulse 67 04/15/18 10:00 Resp 12 04/15/18 10:00 BP 101/40 04/15/18 10:00 Pulse Ox 98 04/15/18 10:00 Intake & Output 04/14/18 04/15/18 04/15/18 18:59 06:59 18:59 Intake Total 204 330.633 40 Output Total 570 815 40 Balance -366 -484.367 0 Weight 68.5 kg 71.6 kg Intake: IV 204 120 40 LR 20 120 40 Lactated Ringers 1,000 ml 160 @ 20 mls/hr IV .Q24H [facility]MA Rx#:[id number] Pressure Bag of 0.9 NaCl 24 Intake, IV Titration 210.633 Amount Amiodarone 450 mg In 210.633 Dextrose 5% in Water 250 ml @ 1 MG/MIN 34.53 mls/ hr IV .Q7H31M PRN Rx#: [id number] Output: Chest Tube Drainage 170 215 40 Chest Tube Left 120 215 40 Mediastinal 50 Urine 400 600 Other: Voiding Method Urinal Urinal Urinal ABP, PAP, CO, CI - Last Documented Arterial Blood Pressure 131/42 Pulmonary Artery Pressure 28/13 Cardiac Output 5.2 Cardiac Index 2.8 - Exam GENERAL EXAM: Alert, active, comfortable in no apparent distress. HEAD: Normocephalic. EYES: Normal reaction of pupils, equal size. NOSE: Clear with pink turbinates. THROAT: No erythema or exudates. NECK: No masses, no JVD. CHEST: Heart hugger in place. Dressing dry and intact. Sternum stable. LUNGS: Equal air entry with faint crackles in the bilateral posterior bases. CVS: S1 and S2 normal with no audible murmur, regular rhythm. ABDOMEN: No hepatosplenomegaly, normal bowel sounds, no guarding or rigidity. SPINE: No scoliosis or deformity SKIN: No rashes CENTRAL NERVOUS SYSTEM: No focal deficits, tone is normal in all 4 extremities. EXTREMITIES: There is no peripheral edema. No clubbing, no cyanosis. Peripheral pulses are intact. - Labs CBC & Chem 7: 04/15/18 05:00 04/15/18 05:00 Labs: Abnormal Lab Results - Last 24 Hours (Table) 04/14/18 04/14/18 04/14/18 Range/Units 12:11 16:52 20:57 RBC (4.30-5.90) m/uL Hgb (13.0-17.5) gm/dL Hct (39.0-53.0) % Plt Count (150-450) k/uL BUN (9-20) mg/dL Glucose (74-99) mg/dL POC Glucose (mg/dL) 156 H 173 H 168 H (75-99) mg/dL Total Protein (6.3-8.2) g/dL Albumin (3.5-5.0) g/dL 04/15/18 04/15/18 04/15/18 Range/Units 05:00 05:00 07:26 RBC 2.17 L (4.30-5.90) m/uL Hgb 7.1 L (13.0-17.5) gm/dL Hct 21.0 L (39.0-53.0) % Plt Count 102 L (150-450) k/uL BUN 27 H (9-20) mg/dL Glucose 127 H (74-99) mg/dL POC Glucose (mg/dL) 127 H (75-99) mg/dL Total Protein 4.7 L (6.3-8.2) g/dL Albumin 2.8 L (3.5-5.0) g/dL Assessment and Plan Plan: Assessment and plan #1 Coronary artery disease status post four-vessel bypass grafting 4 utilizing a MEJIAS to the LAD, reverse saphenous vein grafts to the obtuse marginal artery, posterior descending artery, diagonal artery. Postoperative day #3. #[address] segment elevation myocardial infarction. #3 Previous history of coronary artery disease with stent placement. #4 Hypertension. #5 Hyperlipidemia. #6 History of kidney cancer with partial nephrectomy. #7 Chronic tobacco dependence. #8 Benign prostatic hypertrophy. #9 Gastroesophageal reflux disease. #10 paroxysmal atrial fibrillation, currently in normal sinus rhythm. Plan Patient progressing well overall. Plans to be transferred to the telemetry unit later on today. We will continue to follow. He has been encouraged regarding the use of his incentive spirometry. DNP note has been reviewed, I agree with a documented findings and plan of care. Patient was seen and examined.
[2018-04-15] MEDS: LACTATED RINGERS 1,000 ML IV SCH (11:56)
[2018-04-15] MEDS: CLEVIDIPINE BUTYRATE 25 MG in EMPTY BAG 1 BAG IV SCH (12:01)
[2018-04-15 12:02] LABS: Glucose,Whole Blood 147 mg/dL (75-99)
[2018-04-15] MEDS: AMIODARONE 450 MG in DEXTROSE 5% IN WATER 250 ML IV PRN ×4 (13:43→13:45)
[2018-04-15 16:32] LABS: Glucose,Whole Blood 174 mg/dL (75-99)
[2018-04-15] MEDS: MAGNESIUM HYDROXIDE 2,400 MG/10 ML CUP PO PRN (16:36)
[2018-04-15 18:08] LABS: Appearance,Urine Clear (Clear); Bilirubin,Urine Negative (Negative); Blood,Urine Small (Negative); Color,Urine Light Yellow; Glucose,Urine (UA) Negative (Negative); Ketones,Urine Negative (Negative); Leukocyte Esterase,Urine Negative (Negative); Mucus,Urine Rare /hpf; Nitrite,Urine Negative (Negative); Protein,Urine Negative (Negative); RBC,Urine 20 /hpf (0-5); Urobilinogen,Urine <2.0 mg/dL (<2.0)
[2018-04-15] MEDS: SENNOSIDES-DOCUSATE SODIUM 1 EACH TAB PO SCH (19:43)
[2018-04-15] MEDS: TAMSULOSIN 0.4 MG CAP.ER.24H PO SCH (19:44)
[2018-04-15] MEDS: DILTIAZEM 50 MG in SODIUM CHLORIDE 0.9% 40 ML IV SCH (19:51)
[2018-04-15 21:25] LABS: Glucose,Whole Blood 167 mg/dL (75-99)
[2018-04-16 02:24] LABS: Glucose,Whole Blood 151 mg/dL (75-99)
[2018-04-16 06:43] LABS: HCT 20.2 % (39.0-53.0); MCH 32.4 pg (25.0-35.0); MCHC 33.4 g/dL (31.0-37.0); Mean Platelet Volume 8.5; Platelet Count 134 k/uL (150-450); RBC 2.08 m/uL (4.30-5.90); RDW 14.4 % (11.5-15.5); WBC 7.7 k/uL (3.8-10.6)
[2018-04-16] MEDS: INSULIN ASPART 100 UNIT/ML 1 ML 10 ML VIAL SQ SCH ×4 (06:47→22:03)
[2018-04-16] MEDS: PANTOPRAZOLE 40 MG TABLET PO SCH (06:47)
[2018-04-16 06:51] LABS: Glucose,Whole Blood 137 mg/dL (75-99)
[2018-04-16 06:54] LABS: Albumin 2.6 g/dL (3.5-5.0); Calcium 8.1 mg/dL (8.4-10.2); Potassium 4.3 mmol/L (3.5-5.1); Total Bilirubin 0.8 mg/dL (0.2-1.3); Total Protein 4.6 g/dL (6.3-8.2)
--- NOTE | 2018-04-16 06:57 | XR ---
EXAMINATION TYPE: XR chest 2V DATE OF EXAM: 04/16/2018 HISTORY: post cardiac surgery. REFERENCE: Previous study dated 04/15/2018. FINDINGS: There has been a midline sternotomy. The lungs are overinflated. There is minimal left basilar airspace disease. There are tiny bilateral effusions. Overall aeration at the left lung base has improved. IMPRESSION: IMPROVED AERATION, LEFT LUNG BASE.
[2018-04-16 07:01] LABS: HGB 6.7 gm/dL (13.0-17.5)
[2018-04-16] MEDS: AMIODARONE 200 MG TAB PO SCH ×2 (07:36→19:54)
[2018-04-16] MEDS: HEPARIN SODIUM,PORCINE 5,000 UNIT/ML 1 ML VIAL SQ SCH ×3 (07:36→23:08)
[2018-04-16] MEDS: ASPIRIN 81 MG PO SCH (07:37)
[2018-04-16] MEDS: CLOPIDOGREL 75 MG TAB PO SCH (07:37)
[2018-04-16] MEDS: ATORVASTATIN 40 MG TAB PO SCH (07:37)
[2018-04-16] MEDS: METOPROLOL TARTRATE 12.5 MG TAB PO SCH ×2 (07:37→19:54)
--- NOTE | 2018-04-16 09:06 | P.PN ---
Subjective Progress Note Date: 04/16/18 Principal diagnosis: Medical management post CABG Patient was seen and examined. No acute events overnight. Episode of dizziness when getting up from bed for CXR this morning. Resolved after sitting down. VS stable after that episode. Patient reports urinating freely now, same as home. Has not had bowel movement since surgery. Objective - Vital Signs Vital signs: Vital Signs Temp 97.5 F L 04/16/18 07:46 Pulse 74 04/16/18 07:46 Resp 18 04/16/18 07:46 BP 110/55 04/16/18 07:46 Pulse Ox 97 04/16/18 07:46 Intake & Output 04/15/18 04/16/18 04/16/18 18:59 06:59 18:59 Intake Total 120.575 Output Total 665 150 Balance -544.425 -150 Weight 70.6 kg Intake: IV 120 LR 120 Intake, IV Titration 0.575 Amount Amiodarone 450 mg In 0.575 Dextrose 5% in Water 250 ml @ 1 MG/MIN 34.53 mls/ hr IV .Q7H31M PRN Rx#: [id number] Output: Chest Tube Drainage 40 Chest Tube Left 40 Urine 625 150 Other: Voiding Method Urinal Toilet Urinal # Voids 1 1 ABP, PAP, CO, CI - Last Documented Arterial Blood Pressure 131/42 Pulmonary Artery Pressure 28/13 Cardiac Output 5.2 Cardiac Index 2.8 - Exam General: [non toxic], [no distress], [appears at stated age] Derm: [warm], [dry] Head: [atraumatic], [normocephalic], [symmetric] Eyes: [EOMI], [no lid lag], [anicteric sclera] Mouth: [no lip lesion], [mucus membranes moist] Cardiovascular: [S1S2 reg], [no murmur], [positive DP pulse bilateral], [ sternal dressings c/d/i], [Heart hugger in place] Lungs: [CTA bilateral], [no rhonchi, no rales] , [no accessory muscle use] Abdominal: [soft], [ nontender to palpation], [no guarding], [no appreciable organomegaly] Ext: [no gross muscle atrophy], [no edema], [no contractures] Psych: [Alert], [oriented], [appropriate affect] - Labs CBC & Chem 7: 04/16/18 05:50 04/16/18 05:50 Labs: Abnormal Lab Results - Last 24 Hours (Table) 04/15/18 04/15/18 04/15/18 Range/Units 12:01 16:31 17:30 RBC (4.30-5.90) m/uL Hgb (13.0-17.5) gm/dL Hct (39.0-53.0) % Plt Count (150-450) k/uL BUN (9-20) mg/dL Glucose (74-99) mg/dL POC Glucose (mg/dL) 147 H 174 H (75-99) mg/dL Calcium (8.4-10.2) mg/dL Total Protein (6.3-8.2) g/dL Albumin (3.5-5.0) g/dL Urine Blood Small H (Negative) Urine RBC 20 H (0-5) /hpf Urine Mucus Rare H (None) /hpf 04/15/18 04/16/18 04/16/18 Range/Units 21:13 02:12 05:50 RBC 2.08 L (4.30-5.90) m/uL Hgb 6.7 L* (13.0-17.5) gm/dL Hct 20.2 L (39.0-53.0) % Plt Count 134 L (150-450) k/uL BUN (9-20) mg/dL Glucose (74-99) mg/dL POC Glucose (mg/dL) 167 H 151 H (75-99) mg/dL Calcium (8.4-10.2) mg/dL Total Protein (6.3-8.2) g/dL Albumin (3.5-5.0) g/dL Urine Blood (Negative) Urine RBC (0-5) /hpf Urine Mucus (None) /hpf 04/16/18 04/16/18 Range/Units 05:50 06:33 RBC (4.30-5.90) m/uL Hgb (13.0-17.5) gm/dL Hct (39.0-53.0) % Plt Count (150-450) k/uL BUN 25 H (9-20) mg/dL Glucose 112 H (74-99) mg/dL POC Glucose (mg/dL) 137 H (75-99) mg/dL Calcium 8.1 L (8.4-10.2) mg/dL Total Protein 4.6 L (6.3-8.2) g/dL Albumin 2.6 L (3.5-5.0) g/dL Urine Blood (Negative) Urine RBC (0-5) /hpf Urine Mucus (None) /hpf Assessment and Plan Assessment: Assessment and Plan 1. Anemia: Likely due to acute blood loss from CAGB. Hg 6.7 this AM. Will transfuse 1 PRBC. Daily CBC. 2. CAD: s/p CABG 03/13 (MEJIAS to LAD, SVG to OM PDA DIAG). Troponin 0.02, peaked at 12.1 on 01/12 s/p SHARON in 12/2017. Cath 03/2018 showed triple vessel CAD within the LAD and stenosis of the LCx and RCA. CT Surgery following - continue post operative management. Most recent CXR shows improved aeration in the left lung base. A1c and Lipid panel within normal limits. Continue ASA 81 mg PO QD, Plavix 75 mg PO QD and Lipitor 40 mg PO QHS. Continue Metoprolol 12.5 mg PO BID. Will consider adding ACEi. Pain management with [place] PRN. Cardiac diet. Incentive spirometry. Daily CBC and CXRs. FU PT/OT for cardiac rehab, CT Surgery recommendations. 3. A-Fib: New onset post CABG. Continue Amiodarone 400 mg PO BID. Continue Metoprolol 12.5 mg PO BID. Telemetry monitoring. Keep Mg > 2 and K > 4. Will need to discus need for AC with Cardiology. FU Cardiology, Mg 4. Prerenal azotemia: BUN 25, Cr within normal limits. Likely from dehydration. LR at 20 cc/h. Encourage PO hydration. Daily BMP. 5. Urinary retention: Improving. History of BPH and recent Sx. Continue Flomax 0.4 mg PO QHS. Bladder scan and straight cath as needed. UA is + for hematuria ( likely traumatic from Kiran). Creatinine is stable since admission. 6. DVT Prophylaxis: SCD boots only. Protonix 40 mg PO QAM.
[2018-04-16] MEDS: IPRATROPIUM-ALBUTEROL 3 ML NEB INHALATION SCH ×4 (09:12→20:12)
--- NOTE | 2018-04-16 09:12 | P.PN ---
Subjective Progress Note Date: 04/16/18 Principal diagnosis: Coronary artery disease. Previous medical history of recent STEMI with placement of drug-eluting stent to the left anterior descending coronary artery , hypertension, hyperlipidemia, BPH, kidney cancer status post partial nephrectomy, self reducible right sided inguinal hernia, and family history of premature coronary artery disease with his father dying from myocardial infarction 50 years old. POD #4 coronary artery bypass grafting 4, left internal mammary artery to the left anterior descending artery, reverse saphenous vein graft to the obtuse marginal artery, reverse saphenous vein graft to the posterior descending artery , reverse saphenous vein graft to the diagonal artery, endoscopic vein harvesting of the left greater saphenous vein, intraoperative transesophageal echocardiogram. Postoperative acute blood loss anemia, an expected outcome of surgery given hemodilution and the use of cardiopulmonary bypass pump. Postoperative atrial fibrillation with rapid ventricular response, an expected outcome of surgery. Patient's currently sitting up in a chair in no acute distress. States his sternal pain is well controlled with current pain medication, he does not feel his bones clicking with coughing anymore. Denies shortness of breath. Left pleural chest tube was discontinued yesterday. Patient was transferred to [address] [place] [address] last night. Hemaglobin dropped slightly over the last 24 hours, patient remains hemodynamically stable but does get dizzy/lightheaded when going from sitting to standing position. Objective - Vital Signs Vital signs: Vital Signs Temp 97.5 F L 04/16/18 07:46 Pulse 74 04/16/18 07:46 Resp 18 04/16/18 07:46 BP 110/55 04/16/18 07:46 Pulse Ox 97 04/16/18 07:46 Intake & Output 04/15/18 04/16/18 04/16/18 18:59 06:59 18:59 Intake Total 120.575 Output Total 665 150 Balance -544.425 -150 Weight 70.6 kg Intake: IV 120 LR 120 Intake, IV Titration 0.575 Amount Amiodarone 450 mg In 0.575 Dextrose 5% in Water 250 ml @ 1 MG/MIN 34.53 mls/ hr IV .Q7H31M PRN Rx#: [id number] Output: Chest Tube Drainage 40 Chest Tube Left 40 Urine 625 150 Other: Voiding Method Urinal Toilet Urinal # Voids 1 1 ABP, PAP, CO, CI - Last Documented Arterial Blood Pressure 131/42 Pulmonary Artery Pressure 28/13 Cardiac Output 5.2 Cardiac Index 2.8 - Constitutional General appearance: Present: cooperative, no acute distress - Respiratory Details: Lungs sounds diminished bilaterally. Respirations even, nonlabored. Currently on room air with oxygen saturation 94%. Able to achieve 1750 mL on his incentive spirometry. Strong cough. - Cardiovascular Details: S1, S2 present. Regular rate and rhythm, sinus rhythm on telemetry. Sternum stable. Ventricular epicardial pacemaker wires present, grounded. Palpable peripheral pulses bilaterally. No edema present. No calf pain or tenderness noted. Heart hugger place with patient demonstrating appropriate use. Antiembolism stockings, SCDs present. - Gastrointestinal Gastrointestinal Comment(s): Abdomen soft, nontender, nondistended. Active bowel sounds present 4 quadrants. Tolerating diet. Positive flatus, negative bowel movement. - Genitourinary Genitourinary Comment(s): Kiran discontinued, patient has been able to void with minimal residual. - Integumentary Integumentary Comment(s): Skin is warm and dry with evidence of good perfusion. Anterior chest incision well approximated and covered with dry intact dressing, left lower extremity EVH site well approximated. - Neurologic Neurologic: Present: CNII-XII intact - Musculoskeletal Musculoskeletal: Present: gait normal, strength equal bilaterally - Psychiatric Psychiatric: Present: A&O x's 3, appropriate affect, intact judgment & insight - Allied health notes Allied health notes reviewed: nursing - Labs CBC & Chem 7: 04/16/18 05:50 04/16/18 05:50 Labs: Abnormal Lab Results - Last 24 Hours (Table) 04/15/18 04/15/18 04/15/18 Range/Units 12:01 16:31 17:30 RBC (4.30-5.90) m/uL Hgb (13.0-17.5) gm/dL Hct (39.0-53.0) % Plt Count (150-450) k/uL BUN (9-20) mg/dL Glucose (74-99) mg/dL POC Glucose (mg/dL) 147 H 174 H (75-99) mg/dL Calcium (8.4-10.2) mg/dL Total Protein (6.3-8.2) g/dL Albumin (3.5-5.0) g/dL Urine Blood Small H (Negative) Urine RBC 20 H (0-5) /hpf Urine Mucus Rare H (None) /hpf 04/15/18 04/16/18 04/16/18 Range/Units 21:13 02:12 05:50 RBC 2.08 L (4.30-5.90) m/uL Hgb 6.7 L* (13.0-17.5) gm/dL Hct 20.2 L (39.0-53.0) % Plt Count 134 L (150-450) k/uL BUN (9-20) mg/dL Glucose (74-99) mg/dL POC Glucose (mg/dL) 167 H 151 H (75-99) mg/dL Calcium (8.4-10.2) mg/dL Total Protein (6.3-8.2) g/dL Albumin (3.5-5.0) g/dL Urine Blood (Negative) Urine RBC (0-5) /hpf Urine Mucus (None) /hpf 04/16/18 04/16/18 Range/Units 05:50 06:33 RBC (4.30-5.90) m/uL Hgb (13.0-17.5) gm/dL Hct (39.0-53.0) % Plt Count (150-450) k/uL BUN 25 H (9-20) mg/dL Glucose 112 H (74-99) mg/dL POC Glucose (mg/dL) 137 H (75-99) mg/dL Calcium 8.1 L (8.4-10.2) mg/dL Total Protein 4.6 L (6.3-8.2) g/dL Albumin 2.6 L (3.5-5.0) g/dL Urine Blood (Negative) Urine RBC (0-5) /hpf Urine Mucus (None) /hpf - Imaging and Cardiology Chest x-ray: report reviewed, image reviewed Assessment and Plan (1) BPH (benign prostatic hyperplasia) Current Visit: Yes Status: Chronic Code(s): N40.0 - BENIGN PROSTATIC HYPERPLASIA WITHOUT LOWER URINRY TRACT SYMP SNOMED Code(s): 042442403 (2) CAD (coronary artery disease) Current Visit: Yes Status: Chronic Code(s): I25.10 - ATHSCL HEART DISEASE OF [place] CORONARY ARTERY W/O ANG PCTRS SNOMED Code(s): 65598705 (3) Family history of premature CAD Current Visit: Yes Status: Chronic Code(s): Z82.49 - FAMILY HX OF ISCHEM HEART DIS AND OTH DIS OF THE CIRC SYS SNOMED Code(s): 183750657 (4) History of coronary artery stent placement Current Visit: Yes Status: Chronic Code(s): Z95.5 - PRESENCE OF CORONARY ANGIOPLASTY IMPLANT AND GRAFT SNOMED Code(s): 452588867 (5) History of partial nephrectomy Current Visit: Yes Status: Chronic Code(s): Z90.5 - ACQUIRED ABSENCE OF KIDNEY SNOMED Code(s): 318593373 (6) Hyperlipidemia Current Visit: Yes Status: Chronic Code(s): E78.5 - HYPERLIPIDEMIA, UNSPECIFIED SNOMED Code(s): 92764530 (7) Hypertension Current Visit: Yes Status: Chronic Code(s): I10 - ESSENTIAL (PRIMARY) HYPERTENSION SNOMED Code(s): 51903946 (8) History of ST elevation myocardial infarction (STEMI) Current Visit: No Status: Resolved Code(s): I25.2 - OLD MYOCARDIAL INFARCTION SNOMED Code(s): 369903662531748 (9) History of kidney cancer Current Visit: No Status: Resolved Code(s): Z85.528 - PERSONAL HISTORY OF OTHER MALIGNANT NEOPLASM OF KIDNEY SNOMED Code(s): 387947406 Plan: 1. Continue low-dose aspirin, statin, Plavix, beta brain. Will increase beta brian therapy as tolerated. 2. Continue amiodarone for A. fib prophylaxis. 3. Encourage incentive spirometry is 10 times every hour while awake. 4. Increase activity as tolerated. PT/OT/cardiac rehab following. 5. Will monitor daily labs and chest x-rays. Will transfuse 1 unit packed red blood cells today. 6. Insulin management per primary care service. 7. Will transfuse 1 unit packed red blood cells today. 8. No Lasix today. 9. Pain management with current medication regimen. 10. GI prophylaxis with Protonix, DVT prophylaxis with subcu heparin and SCDs. 11. More recommendations to follow. Time with Patient: Greater than 30
--- NOTE | 2018-04-16 12:01 | P.PN ---
Subjective Progress Note Date: 04/16/18 Principal diagnosis: CAD, s/p CABG This is a 73-year-old male who is postop day #4 status post four-vessel bypass grafting. He does have a previous history of CAD with a recent ST segment elevation myocardial infarction and placement of a drug-eluting stent to the left anterior descending coronary artery. He also has a history of hypertension hyperlipidemia BPH kidney cancer, status post partial nephrectomy and a family history of CAD. The patient presented to the primary care physician's office on January 12 with complaints of chest pain shortness of breath sweats nausea and lightheadedness as well as an ST elevation on EKG. Subsequent evaluation revealed significant CAD. The patient is currently doing relatively well and he was extubated within the 4-6 hour timeframe. His chest x-ray shows some bibasilar atelectasis and small bilateral effusions and postoperative changes. Patient does state that he attempted to ambulate this morning and became very dizzy and lightheaded, felt as though he may pass out. Chest x-ray from today does show improved aeration in the left lung base. Pain is under good control. Maintaining normal sinus rhythm. He's currently on amiodarone 400 mg by mouth twice a day. Objective - Vital Signs Vital signs: Vital Signs Temp 97.6 F 04/16/18 11:20 Pulse 71 04/16/18 11:20 Resp 18 04/16/18 11:20 BP 101/50 04/16/18 11:20 Pulse Ox 94 L 04/16/18 11:20 Intake & Output 04/15/18 04/16/18 04/16/18 18:59 06:59 18:59 Intake Total 120.575 0 Output Total 665 150 Balance -544.425 -150 0 Weight 70.6 kg Intake: IV 120 LR 120 Intake, IV Titration 0.575 Amount Amiodarone 450 mg In 0.575 Dextrose 5% in Water 250 ml @ 1 MG/MIN 34.53 mls/ hr IV .Q7H31M PRN Rx#: [id number] Blood Product 0 Rc Pheresis 2 As3 Unit 0 [id number] Output: Chest Tube Drainage 40 Chest Tube Left 40 Urine 625 150 Other: Voiding Method Urinal Toilet Urinal # Voids 1 1 ABP, PAP, CO, CI - Last Documented Arterial Blood Pressure 131/42 Pulmonary Artery Pressure 28/13 Cardiac Output 5.2 Cardiac Index 2.8 - Exam GENERAL EXAM: Alert, active, comfortable in no apparent distress. HEAD: Normocephalic. EYES: Normal reaction of pupils, equal size. NOSE: Clear with pink turbinates. THROAT: No erythema or exudates. NECK: No masses, no JVD. CHEST: Heart hugger in place. Dressing dry and intact. Sternum stable. LUNGS: Equal air entry with faint crackles in the bilateral posterior bases. CVS: S1 and S2 normal with no audible murmur, regular rhythm. ABDOMEN: No hepatosplenomegaly, normal bowel sounds, no guarding or rigidity. SPINE: No scoliosis or deformity SKIN: No rashes CENTRAL NERVOUS SYSTEM: No focal deficits, tone is normal in all 4 extremities. EXTREMITIES: There is no peripheral edema. No clubbing, no cyanosis. Peripheral pulses are intact. - Labs CBC & Chem 7: 04/16/18 05:50 04/16/18 05:50 Labs: Abnormal Lab Results - Last 24 Hours (Table) 04/05/18 04/15/18 04/15/18 Range/Units 10:35 12:01 16:31 RBC (4.30-5.90) m/uL Hgb (13.0-17.5) gm/dL Hct (39.0-53.0) % Plt Count (150-450) k/uL BUN (9-20) mg/dL Glucose (74-99) mg/dL POC Glucose (mg/dL) 147 H 174 H (75-99) mg/dL Calcium (8.4-10.2) mg/dL Total Protein (6.3-8.2) g/dL Albumin (3.5-5.0) g/dL Urine Blood (Negative) Urine RBC (0-5) /hpf Urine Mucus (None) /hpf Crossmatch See Detail 04/15/18 04/15/18 04/16/18 Range/Units 17:30 21:13 02:12 RBC (4.30-5.90) m/uL Hgb (13.0-17.5) gm/dL Hct (39.0-53.0) % Plt Count (150-450) k/uL BUN (9-20) mg/dL Glucose (74-99) mg/dL POC Glucose (mg/dL) 167 H 151 H (75-99) mg/dL Calcium (8.4-10.2) mg/dL Total Protein (6.3-8.2) g/dL Albumin (3.5-5.0) g/dL Urine Blood Small H (Negative) Urine RBC 20 H (0-5) /hpf Urine Mucus Rare H (None) /hpf Crossmatch 04/16/18 04/16/18 04/16/18 Range/Units 05:50 05:50 06:33 RBC 2.08 L (4.30-5.90) m/uL Hgb 6.7 L* (13.0-17.5) gm/dL Hct 20.2 L (39.0-53.0) % Plt Count 134 L (150-450) k/uL BUN 25 H (9-20) mg/dL Glucose 112 H (74-99) mg/dL POC Glucose (mg/dL) 137 H (75-99) mg/dL Calcium 8.1 L (8.4-10.2) mg/dL Total Protein 4.6 L (6.3-8.2) g/dL Albumin 2.6 L (3.5-5.0) g/dL Urine Blood (Negative) Urine RBC (0-5) /hpf Urine Mucus (None) /hpf Crossmatch 04/16/18 Range/Units 08:33 RBC (4.30-5.90) m/uL Hgb (13.0-17.5) gm/dL Hct (39.0-53.0) % Plt Count (150-450) k/uL BUN (9-20) mg/dL Glucose (74-99) mg/dL POC Glucose (mg/dL) (75-99) mg/dL Calcium (8.4-10.2) mg/dL Total Protein (6.3-8.2) g/dL Albumin (3.5-5.0) g/dL Urine Blood (Negative) Urine RBC (0-5) /hpf Urine Mucus (None) /hpf Crossmatch See Detail Assessment and Plan Assessment: #1 Coronary artery disease status post four-vessel bypass grafting 4 utilizing a MEJIAS to the LAD, reverse saphenous vein grafts to the obtuse marginal artery, posterior descending artery, diagonal artery. Postoperative day #4. #[address] segment elevation myocardial infarction. #3 Previous history of coronary artery disease with stent placement. #4 Hypertension. #5 Hyperlipidemia. #6 History of kidney cancer with partial nephrectomy. #7 Chronic tobacco dependence. #8 Benign prostatic hypertrophy. #9 Gastroesophageal reflux disease. #10 paroxysmal atrial fibrillation, currently in normal sinus rhythm. Plan: From cardiology perspective, patient is progressing well overall. We anticipate patient will be transfused with one unit of packed red blood cells as his hemoglobin is 6.7 today. This could contribute to some of his symptoms of lightheaded and dizziness upon standing. Patient was instructed to change position slowly. He has been encouraged regarding the use of his incentive spirometer. The above dictated assessment and findings were discussed with signing physician. The impression and plan of care have been directed as dictated. Mis Zapien, Nurse Practitioner, acting as scribe for signing physician.
[2018-04-16 12:17] LABS: Glucose,Whole Blood 129 mg/dL (75-99)
--- NOTE | 2018-04-16 12:43 | P.PN ---
Subjective Progress Note Date: 04/16/18 Principal diagnosis: Coronary artery disease, status post coronary artery bypass grafting 4 Pulmonary consultation dated 04/13/2018 This is a 73-year-old male who is postop day #1 status post four-vessel bypass grafting. The patient is currently doing relatively well and he was extubated within the 4-6 hour timeframe. Currently he is on O2 at between 2-4 L/m. He is getting lactated Ringer's at 50 mL an hour and insulin drip at less than 1 unit per hour and he was on nitroglycerin but that has been turned off. His chest x-ray shows some bibasilar atelectasis and small bilateral effusions and postoperative changes. He does have a previous history of CAD with a recent ST segment elevation myocardial infarction and placement of a drug-eluting stent to the left anterior descending coronary artery. He also has a history of hypertension hyperlipidemia BPH kidney cancer, status post partial nephrectomy and a family history of CAD. The patient presented to the primary care physician's office on January 12 with complaints of chest pain shortness of breath sweats nausea and lightheadedness as well as an ST elevation on EKG. Subsequent evaluation revealed significant CAD. Again the patient had surgery yesterday and is doing very well today. The patient really has no complaints although apparently this morning had a near syncopal episode so he is back in bed. This is why the nitroglycerin was turned off. The patient apparently has a history of never having used tobacco products. No significant alcohol or illicit drug use either. On 04/06/2018, patient seen in follow-up in the intensive care unit. Resting comfortably in bed, in no acute distress, he is awake alert oriented 3. On 2 L per nasal cannula, his pulse ox is 95%, I asked effort is 1000 mL today. Lung sounds are positive for diminished breath sounds at the bases, with some limited crackles bilaterally, today's chest x-ray shows minimal left pleural effusion and/or atelectasis at the left base, improved from prior exam. This suspected minimal left apical pneumothorax appears to be resolving. Yesterday patient had episode of presyncope, does get not on the commode, quickly recovered after being placed in bed, thought to be orthostatic, patient received 1 unit of packed red blood cells yesterday for a hemoglobin of 6.6. Today's hemoglobin is 7.2, WBC 7.5, platelet count is 79. Sodium is 138, potassium is 4.7, chloride is 109, BUN is 23, creatinine is 1.18. Patient is tolerating oral intake, his pain is reasonably controlled, 2 mediastinal and left pleural chest tubes are in place, and the output is serosanguineous, thin, there has been 325 out of the left chest tube, and 120 out of the knee diastolic chest tubes. One set of ventricular wires, with VVI backup rate. Sinus rhythm on the monitor, with a rate of 72 BPM. Maintenance IV fluids LR at a rate of 20 ML per hour. On 04/16/2018 patient seen in follow-up on selective care unit. In bed, in no acute distress, sinus rhythm with a controlled rate. His postop day 4, post 4 vessel bypass grafting. Incentive spirometry effort is 2000, patient has not had any recurrent episodes of syncope. This morning he was getting up and felt dizzy, but did not pass out, was assisted back to bed. Today's hemoglobin is 6.7, and CT surgery is plan on transfusing the patient with 1 unit of packed red blood cells. Afebrile, blood pressures 105/54, on room air, his pulse ox is 93%, lung sounds are clear to auscultation. Set of ventricular epicardial wires are grounded. Chest tubes are out. His chest x-ray showed improved aeration at the left lung base. Tiny bilateral effusions. Objective - Vital Signs Vital signs: Vital Signs Temp 97.6 F 04/16/18 11:50 Pulse 71 04/16/18 11:50 Resp 18 04/16/18 11:50 BP 105/54 04/16/18 11:50 Pulse Ox 93 L 04/16/18 11:50 Intake & Output 04/15/18 04/16/18 04/16/18 18:59 06:59 18:59 Intake Total 120.575 0 Output Total 665 150 Balance -544.425 -150 0 Weight 70.6 kg Intake: IV 120 LR 120 Intake, IV Titration 0.575 Amount Amiodarone 450 mg In 0.575 Dextrose 5% in Water 250 ml @ 1 MG/MIN 34.53 mls/ hr IV .[id number] PRN Rx#: [id number] Blood Product 0 Rc Pheresis 2 As3 Unit 0 [id number] Output: Chest Tube Drainage 40 Chest Tube Left 40 Urine 625 150 Other: Voiding Method Urinal Toilet Urinal # Voids 1 1 ABP, PAP, CO, CI - Last Documented Arterial Blood Pressure 131/42 Pulmonary Artery Pressure 28/13 Cardiac Output 5.2 Cardiac Index 2.8 - Exam GENERAL EXAM: Alert, pleasant, 73-year-old white male comfortable in no apparent distress. HEAD: Normocephalic/atraumatic. EYES: Normal reaction of pupils, equal size. Conjunctiva pink, sclera white. NOSE: Clear with pink turbinates. THROAT: No erythema or exudates. NECK: No masses, no JVD, no thyroid enlargement, no adenopathy. CHEST: No chest wall deformity. Symmetrical expansion. Ventricular wires are grounded, chest tubes have been discontinued. LUNGS: Equal air entry with diminished breath sounds at the bases. CVS: Regular rate and rhythm, normal S1 and S2, no gallops, no murmurs, no rubs ABDOMEN: Soft, nontender. No hepatosplenomegaly, normal bowel sounds, no guarding or rigidity. EXTREMITIES: No clubbing, no edema, no cyanosis, 2+ pulses and upper and lower extremities. Left lower extremity EVH site well approximated, covered with a dry intact dressing. MUSCULOSKELETAL: Muscle strength and tone normal. SPINE: No scoliosis or deformity SKIN: No rashes CENTRAL NERVOUS SYSTEM: Alert and oriented -3. No focal deficits, tone is normal in all 4 extremities. PSYCHIATRIC: Alert and oriented -3. Appropriate affect. Intact judgment and insight. - Labs CBC & Chem 7: 04/16/18 05:50 04/16/18 05:50 Labs: Abnormal Lab Results - Last 24 Hours (Table) 04/05/18 04/15/18 04/15/18 Range/Units 10:35 16:31 17:30 RBC (4.30-5.90) m/uL Hgb (13.0-17.5) gm/dL Hct (39.0-53.0) % Plt Count (150-450) k/uL BUN (9-20) mg/dL Glucose (74-99) mg/dL POC Glucose (mg/dL) 174 H (75-99) mg/dL Calcium (8.4-10.2) mg/dL Total Protein (6.3-8.2) g/dL Albumin (3.5-5.0) g/dL Urine Blood Small H (Negative) Urine RBC 20 H (0-5) /hpf Urine Mucus Rare H (None) /hpf Crossmatch See Detail 04/15/18 04/16/18 04/16/18 Range/Units 21:13 02:12 05:50 RBC 2.08 L (4.30-5.90) m/uL Hgb 6.7 L* (13.0-17.5) gm/dL Hct 20.2 L (39.0-53.0) % Plt Count 134 L (150-450) k/uL BUN (9-20) mg/dL Glucose (74-99) mg/dL POC Glucose (mg/dL) 167 H 151 H (75-99) mg/dL Calcium (8.4-10.2) mg/dL Total Protein (6.3-8.2) g/dL Albumin (3.5-5.0) g/dL Urine Blood (Negative) Urine RBC (0-5) /hpf Urine Mucus (None) /hpf Crossmatch 04/16/18 04/16/18 04/16/18 Range/Units 05:50 06:33 08:33 RBC (4.30-5.90) m/uL Hgb (13.0-17.5) gm/dL Hct (39.0-53.0) % Plt Count (150-450) k/uL BUN 25 H (9-20) mg/dL Glucose 112 H (74-99) mg/dL POC Glucose (mg/dL) 137 H (75-99) mg/dL Calcium 8.1 L (8.4-10.2) mg/dL Total Protein 4.6 L (6.3-8.2) g/dL Albumin 2.6 L (3.5-5.0) g/dL Urine Blood (Negative) Urine RBC (0-5) /hpf Urine Mucus (None) /hpf Crossmatch See Detail 04/16/18 Range/Units 11:56 RBC (4.30-5.90) m/uL Hgb (13.0-17.5) gm/dL Hct (39.0-53.0) % Plt Count (150-450) k/uL BUN (9-20) mg/dL Glucose (74-99) mg/dL POC Glucose (mg/dL) 129 H (75-99) mg/dL Calcium (8.4-10.2) mg/dL Total Protein (6.3-8.2) g/dL Albumin (3.5-5.0) g/dL Urine Blood (Negative) Urine RBC (0-5) /hpf Urine Mucus (None) /hpf Crossmatch Assessment and Plan Plan: Assessment: Postop day #4, status post four-vessel bypass grafting Previous history of ST segment elevation myocardial infarction Postoperative ventilator management with extubation within the 4-6 hour window History of CAD with previous catheterization and stent placement History of hypertension History of hyperlipidemia History of kidney cancer with partial nephrectomy Lifelong nontobacco use History of BPH History of gastroesophageal reflux disease Plan: Continue pulmonary toileting, deep breathing and coughing incentive spirometry use. Patient is going to receive a unit of packed red blood cells. Remains in sinus rhythm, today's chest x-ray has been reviewed by Dr. Mercado, there is improving aeration noted. On room air, no specific complaints, pain is controlled. We'll continue to follow. I performed a history & physical examination of the patient and discussed their management with my nurse practitioner, Amarilys Gamino. I reviewed the nurse practitioner's note and agree with the documented findings and plan of care. Lung sounds are positive for bibasilar diminished breath sounds. The findings and the impression was discussed with the patient. I attest to the documentation by the nurse practitioner. Time with Patient: Less than 30
[2018-04-16] MEDS: HYDROcodone/APAP 5-325MG 1 EACH TAB PO PRN ×2 (14:18→19:55)
[2018-04-16 17:35] LABS: Glucose,Whole Blood 127 mg/dL (75-99)
[2018-04-16] MEDS: SENNOSIDES-DOCUSATE SODIUM 1 EACH TAB PO SCH (19:54)
[2018-04-16] MEDS: TAMSULOSIN 0.4 MG CAP.ER.24H PO SCH (19:54)
[2018-04-16] MEDS: MAGNESIUM HYDROXIDE 2,400 MG/10 ML CUP PO PRN (19:55)
[2018-04-16 20:58] LABS: Glucose,Whole Blood 142 mg/dL (75-99)
[2018-04-17] MEDS: HYDROcodone/APAP 5-325MG 1 EACH TAB PO PRN ×3 (00:30→12:54)
[2018-04-17 01:57] LABS: Glucose,Whole Blood 139 mg/dL (75-99)
[2018-04-17 05:49] LABS: Glucose,Whole Blood 120 mg/dL (75-99)
[2018-04-17] MEDS: INSULIN ASPART 100 UNIT/ML 1 ML 10 ML VIAL SQ SCH ×2 (06:12→12:50)
[2018-04-17] MEDS: PANTOPRAZOLE 40 MG TABLET PO SCH (06:32)
[2018-04-17 07:26] LABS: Anisocytosis Slight; HCT 21.9 % (39.0-53.0); HGB 7.4 gm/dL (13.0-17.5); MCH 31.6 pg (25.0-35.0); MCHC 33.8 g/dL (31.0-37.0); MCV 93.4 fL (80.0-100.0); Platelet Count 188 k/uL (150-450); RBC 2.35 m/uL (4.30-5.90); RDW 18.5 % (11.5-15.5); WBC 6.9 k/uL (3.8-10.6)
--- NOTE | 2018-04-17 07:50 | XR ---
EXAMINATION TYPE: XR chest 2V DATE OF EXAM: 04/15/2018 COMPARISON: 04/16/2018 HISTORY: Shortness of breath TECHNIQUE: Frontal and lateral views of the chest are obtained. FINDINGS: Scattered senescent parenchymal changes noted. Hyperinflation compatible with COPD. No evidence for infiltrate. No evidence for atelectasis. Heart size is stable. Mediastinal structures are stable and grossly unremarkable. No evidence for hilar prominence. Degenerative changes dorsal spine. IMPRESSION: 1. No evidence for acute pulmonary disease.
[2018-04-17 07:56] LABS: Albumin 2.6 g/dL (3.5-5.0); Magnesium 2.5 mg/dL (1.6-2.3); Potassium 4.5 mmol/L (3.5-5.1); Total Bilirubin 1.1 mg/dL (0.2-1.3); Total Protein 4.6 g/dL (6.3-8.2)
--- NOTE | 2018-04-17 08:09 | P.PN ---
Subjective Progress Note Date: 04/17/18 Principal diagnosis: Medical management status post CABG Patient was seen and examined. No acute events overnight. He was transfused 1 unit of blood yesterday. Patient reports being able to walk up and down the peña without any dizziness, shortness of breath or chest pain. Sternal pain is well-controlled with [place] one tablet every 8 hours. He is urinating freely. Patient still has not had a bowel movement, but endorses passing gas. He is to be given milk of magnesia this morning. Objective - Vital Signs Vital signs: Vital Signs Temp 98.1 F 04/17/18 04:00 Pulse 76 04/17/18 04:00 Resp 18 04/17/18 04:00 BP 105/52 04/17/18 04:00 Pulse Ox 93 L 04/17/18 04:00 Intake & Output 04/16/18 04/17/18 04/17/18 18:59 06:59 18:59 Intake Total 310 Balance 310 Intake: Blood Product 310 Rc Pheresis 2 As3 Unit 310 [id number] Other: Voiding Method Toilet Urinal # Voids 0 ABP, PAP, CO, CI - Last Documented Arterial Blood Pressure 131/42 Pulmonary Artery Pressure 28/13 Cardiac Output 5.2 Cardiac Index 2.8 - Exam General: [non toxic], [no distress], [appears at stated age] Derm: [warm], [dry] Head: [atraumatic], [normocephalic], [symmetric] Eyes: [EOMI], [no lid lag], [anicteric sclera] Mouth: [no lip lesion], [mucus membranes moist] Cardiovascular: [S1S2 reg], [no murmur], [positive DP pulse bilateral], [ sternal incision healing well], [Heart hugger in place] Lungs: [CTA bilateral], [no rhonchi, no rales] , [no accessory muscle use] Abdominal: [soft], [ nontender to palpation], [no guarding], [no appreciable organomegaly] Ext: [no gross muscle atrophy], [no edema], [no contractures] Psych: [Alert], [oriented], [appropriate affect] - Labs CBC & Chem 7: 04/17/18 06:17 04/17/18 06:17 Labs: Abnormal Lab Results - Last 24 Hours (Table) 04/05/18 04/16/18 04/16/18 Range/Units 10:35 08:33 11:56 RBC (4.30-5.90) m/uL Hgb (13.0-17.5) gm/dL Hct (39.0-53.0) % RDW (11.5-15.5) % BUN (9-20) mg/dL Creatinine (0.66-1.25) mg/dL POC Glucose (mg/dL) 129 H (75-99) mg/dL Calcium (8.4-10.2) mg/dL Magnesium (1.6-2.3) mg/dL Total Protein (6.3-8.2) g/dL Albumin (3.5-5.0) g/dL Crossmatch See Detail See Detail 04/16/18 04/16/18 04/17/18 Range/Units 16:37 20:56 01:46 RBC (4.30-5.90) m/uL Hgb (13.0-17.5) gm/dL Hct (39.0-53.0) % RDW (11.5-15.5) % BUN (9-20) mg/dL Creatinine (0.66-1.25) mg/dL POC Glucose (mg/dL) 127 H 142 H 139 H (75-99) mg/dL Calcium (8.4-10.2) mg/dL Magnesium (1.6-2.3) mg/dL Total Protein (6.3-8.2) g/dL Albumin (3.5-5.0) g/dL Crossmatch 04/17/18 04/17/18 04/17/18 Range/Units 05:48 06:17 06:17 RBC 2.35 L (4.30-5.90) m/uL Hgb 7.4 L (13.0-17.5) gm/dL Hct 21.9 L (39.0-53.0) % RDW 18.5 H (11.5-15.5) % BUN 26 H (9-20) mg/dL Creatinine 1.37 H (0.66-1.25) mg/dL POC Glucose (mg/dL) 120 H (75-99) mg/dL Calcium 8.0 L (8.4-10.2) mg/dL Magnesium 2.5 H (1.6-2.3) mg/dL Total Protein 4.6 L (6.3-8.2) g/dL Albumin 2.6 L (3.5-5.0) g/dL Crossmatch Assessment and Plan Assessment: Assessment and Plan 1. Anemia: Likely due to acute blood loss from CAGB. Hg 6.7 to 7.4 with 1 unit PRBC. Transfuse if Hg < 7.0. Daily CBC. 2. CAD: s/p CABG 03/13 (MEJIAS to LAD, SVG to OM PDA DIAG). Troponin 0.02, peaked at 12.1 on 01/12 s/p SHARON in 12/2017. Cath 03/2018 showed triple vessel CAD within the LAD and stenosis of the LCx and RCA. CT Surgery following - continue post operative management. Most recent CXR shows improved aeration in the left lung base. A1c and Lipid panel within normal limits. Continue ASA 81 mg PO QD, Plavix 75 mg PO QD and Lipitor 40 mg PO QHS. Continue Metoprolol 12.5 mg PO BID. Pain management with [place] PRN. Cardiac diet. Incentive spirometry. FU PT/ OT for cardiac rehab, CT Surgery recommendations. 3. A-Fib: New onset post CABG, NSR since being off the Amiodarone drip. Continue Amiodarone 400 mg PO BID, Metoprolol 12.5 mg PO BID. Telemetry monitoring. Keep Mg > 2 and K > 4. FU Cardiology 4. Prerenal azotemia: BUN 26, Cr 1.37. Likely from dehydration. LR at 20 cc/h. Encourage PO hydration. Daily BMP. 5. Urinary retention: Resolved. History of BPH and recent Sx. Continue Flomax 0.4 mg PO QHS. Bladder scan and straight cath as needed. UA is + for hematuria ( likely traumatic from [place]). Creatinine is stable since admission. 6. DVT Prophylaxis: SCD boots only. Protonix 40 mg PO QAM. Hemoglobin improved posttransfusion. Patient has no evidence of acute bleed. He is likely to be discharged today. Needs close FU with PCP, CT Sx and [employer] Super[employer]. Would consider ACEi prior to DC since EF of 30-35%.
[2018-04-17] MEDS: AMIODARONE 200 MG TAB PO SCH (08:16)
[2018-04-17] MEDS: HEPARIN SODIUM,PORCINE 5,000 UNIT/ML 1 ML VIAL SQ SCH (08:16)
[2018-04-17] MEDS: CLOPIDOGREL 75 MG TAB PO SCH (08:17)
[2018-04-17] MEDS: METOPROLOL TARTRATE 12.5 MG TAB PO SCH (08:17)
[2018-04-17] MEDS: ASPIRIN 81 MG PO SCH (08:17)
[2018-04-17] MEDS: ATORVASTATIN 40 MG TAB PO SCH (08:18)
[2018-04-17] MEDS: MAGNESIUM HYDROXIDE 2,400 MG/10 ML CUP PO PRN (08:21)
--- NOTE | 2018-04-17 08:26 | P.PN ---
Subjective Progress Note Date: 04/17/18 Principal diagnosis: Coronary artery disease. Previous medical history of recent STEMI with placement of drug-eluting stent to the left anterior descending coronary artery , hypertension, hyperlipidemia, BPH, kidney cancer status post partial nephrectomy, self reducible right sided inguinal hernia, and family history of premature coronary artery disease with his father dying from myocardial infarction 50 years old. POD #5 coronary artery bypass grafting 4, left internal mammary artery to the left anterior descending artery, reverse saphenous vein graft to the obtuse marginal artery, reverse saphenous vein graft to the posterior descending artery , reverse saphenous vein graft to the diagonal artery, endoscopic vein harvesting of the left greater saphenous vein, intraoperative transesophageal echocardiogram. Postoperative acute blood loss anemia, an expected outcome of surgery given hemodilution and the use of cardiopulmonary bypass pump. Postoperative atrial fibrillation with rapid ventricular response, an expected outcome of surgery. Patient's currently sitting up in a chair in no acute distress. States his sternal pain is well controlled with current pain medication, denies shortness of breath. He received 1 unit packed red blood cells with improvement in his hemoglobin, denies dizziness, lightheadedness when ambulating. Patient states he has ambulated in the hallway without any difficulties. No new complaints Objective - Vital Signs Vital signs: Vital Signs Temp 98.1 F 04/17/18 04:00 Pulse 76 04/17/18 04:00 Resp 18 04/17/18 04:00 BP 105/52 04/17/18 04:00 Pulse Ox 93 L 04/17/18 04:00 Intake & Output 04/16/18 04/17/18 04/17/18 18:59 06:59 18:59 Intake Total 310 Balance 310 Weight 70.9 kg Intake: Blood Product 310 Rc Pheresis 2 As3 Unit 310 [id number] Other: Voiding Method Toilet Urinal # Voids 0 ABP, PAP, CO, CI - Last Documented Arterial Blood Pressure 131/42 Pulmonary Artery Pressure 28/13 Cardiac Output 5.2 Cardiac Index 2.8 - Constitutional General appearance: Present: cooperative, no acute distress - Respiratory Details: Lungs sounds diminished bilaterally. Respirations even, nonlabored. Currently on room air with oxygen saturation 93%. Able to achieve 2000 mL on his incentive spirometry. Strong productive cough. - Cardiovascular Details: S1, S2 present. Regular rate and rhythm, sinus rhythm on telemetry. Sternum stable. Ventricular epicardial pacemaker wires present, grounded. Palpable peripheral pulses bilaterally. No edema present. No calf pain or tenderness noted. Heart hugger place with patient demonstrating appropriate use. Antiembolism stockings, SCDs present. - Gastrointestinal Gastrointestinal Comment(s): Abdomen soft, nontender, nondistended. Active bowel sounds present 4 quadrants. Tolerating diet. Positive flatus, negative bowel movement. - Genitourinary Genitourinary Comment(s): Patient continues to void clear, yellow urine. - Integumentary Integumentary Comment(s): Skin is warm and dry with evidence of good perfusion. Anterior chest incision well approximated and covered with dry intact dressing, left lower extremity EVH site well approximated. - Neurologic Neurologic: Present: CNII-XII intact - Musculoskeletal Musculoskeletal: Present: gait normal, strength equal bilaterally - Psychiatric Psychiatric: Present: A&O x's 3, appropriate affect, intact judgment & insight - Allied health notes Allied health notes reviewed: nursing - Labs CBC & Chem 7: 04/17/18 06:17 04/17/18 06:17 Labs: Abnormal Lab Results - Last 24 Hours (Table) 04/05/18 04/16/18 04/16/18 Range/Units 10:35 08:33 11:56 RBC (4.30-5.90) m/uL Hgb (13.0-17.5) gm/dL Hct (39.0-53.0) % RDW (11.5-15.5) % BUN (9-20) mg/dL Creatinine (0.66-1.25) mg/dL POC Glucose (mg/dL) 129 H (75-99) mg/dL Calcium (8.4-10.2) mg/dL Magnesium (1.6-2.3) mg/dL Total Protein (6.3-8.2) g/dL Albumin (3.5-5.0) g/dL Crossmatch See Detail See Detail 04/16/18 04/16/18 04/17/18 Range/Units 16:37 20:56 01:46 RBC (4.30-5.90) m/uL Hgb (13.0-17.5) gm/dL Hct (39.0-53.0) % RDW (11.5-15.5) % BUN (9-20) mg/dL Creatinine (0.66-1.25) mg/dL POC Glucose (mg/dL) 127 H 142 H 139 H (75-99) mg/dL Calcium (8.4-10.2) mg/dL Magnesium (1.6-2.3) mg/dL Total Protein (6.3-8.2) g/dL Albumin (3.5-5.0) g/dL Crossmatch 04/17/18 04/17/18 04/17/18 Range/Units 05:48 06:17 06:17 RBC 2.35 L (4.30-5.90) m/uL Hgb 7.4 L (13.0-17.5) gm/dL Hct 21.9 L (39.0-53.0) % RDW 18.5 H (11.5-15.5) % BUN 26 H (9-20) mg/dL Creatinine 1.37 H (0.66-1.25) mg/dL POC Glucose (mg/dL) 120 H (75-99) mg/dL Calcium 8.0 L (8.4-10.2) mg/dL Magnesium 2.5 H (1.6-2.3) mg/dL Total Protein 4.6 L (6.3-8.2) g/dL Albumin 2.6 L (3.5-5.0) g/dL Crossmatch - Imaging and Cardiology Chest x-ray: report reviewed, image reviewed Assessment and Plan (1) BPH (benign prostatic hyperplasia) Current Visit: Yes Status: Chronic Code(s): N40.0 - BENIGN PROSTATIC HYPERPLASIA WITHOUT LOWER URINRY TRACT SYMP SNOMED Code(s): 305131578 (2) CAD (coronary artery disease) Current Visit: Yes Status: Chronic Code(s): I25.10 - ATHSCL HEART DISEASE OF [place] CORONARY ARTERY W/O ANG PCTRS SNOMED Code(s): 30492052 (3) Family history of premature CAD Current Visit: Yes Status: Chronic Code(s): Z82.49 - FAMILY HX OF ISCHEM HEART DIS AND OTH DIS OF THE CIRC SYS SNOMED Code(s): 672971211 (4) History of coronary artery stent placement Current Visit: Yes Status: Chronic Code(s): Z95.5 - PRESENCE OF CORONARY ANGIOPLASTY IMPLANT AND GRAFT SNOMED Code(s): 519878542 (5) History of partial nephrectomy Current Visit: Yes Status: Chronic Code(s): Z90.5 - ACQUIRED ABSENCE OF KIDNEY SNOMED Code(s): 445606753 (6) Hyperlipidemia Current Visit: Yes Status: Chronic Code(s): E78.5 - HYPERLIPIDEMIA, UNSPECIFIED SNOMED Code(s): 45059982 (7) Hypertension Current Visit: Yes Status: Chronic Code(s): I10 - ESSENTIAL (PRIMARY) HYPERTENSION SNOMED Code(s): 34868860 (8) History of ST elevation myocardial infarction (STEMI) Current Visit: No Status: Resolved Code(s): I25.2 - OLD MYOCARDIAL INFARCTION SNOMED Code(s): 690207123076182 (9) History of kidney cancer Current Visit: No Status: Resolved Code(s): Z85.528 - PERSONAL HISTORY OF OTHER MALIGNANT NEOPLASM OF KIDNEY SNOMED Code(s): 256949953 Plan: 1. Continue low-dose aspirin, statin, Plavix, beta brian. Will increase beta brian therapy as tolerated. Will add back in low-dose Ben. 2. Continue amiodarone for A. fib prophylaxis. No need for anticoagulation unless patient is in atrial fibrillation for greater than 24 hours. 3. Encourage incentive spirometry is 10 times every hour while awake. 4. Increase activity as tolerated. PT/OT/cardiac rehab following. 5. Will monitor daily labs and chest x-rays. No further transfusion. 6. Insulin management per primary care service. 7. No Lasix today. 8. Will discontinue ventricular epicardial pacemaker wire today. Patient to remain on bedrest for 1 hour post-wire removal. 9. Pain management with current medication regimen. 10. GI prophylaxis with Protonix, DVT prophylaxis with subcu heparin and SCDs. 11. Discharge planning progress. Anticipate discharge to home with home care later today or tomorrow. 12. More recommendations to follow. Time with Patient: Greater than 30
[2018-04-17] MEDS: IPRATROPIUM-ALBUTEROL 3 ML NEB INHALATION SCH ×3 (09:29→17:08)
[2018-04-17 11:44] VITALS: RESP 16
--- NOTE | 2018-04-17 11:55 | P.PN ---
Subjective Progress Note Date: 04/17/18 This is a 73-year-old male who is postop day #2 status post four-vessel bypass grafting. The patient is currently doing relatively well and he was extubated within the 4-6 hour timeframe. Currently he is on O2 at between 2-4 L/m. He is getting lactated Ringer's at 50 mL an hour and insulin drip at less than 1 unit per hour and he was on nitroglycerin but that has been turned off. His chest x-ray shows some bibasilar atelectasis and small bilateral effusions and postoperative changes. He does have a previous history of CAD with a recent ST segment elevation myocardial infarction and placement of a drug-eluting stent to the left anterior descending coronary artery. He also has a history of hypertension hyperlipidemia BPH kidney cancer, status post partial nephrectomy and a family history of CAD. The patient presented to the primary care physician's office on January 12 with complaints of chest pain shortness of breath sweats nausea and lightheadedness as well as an ST elevation on EKG. Subsequent evaluation revealed significant CAD. Again the patient had surgery yesterday and is doing very well today. Patient does state that he attempted to ambulate this morning and became very dizzy and lightheaded, felt as though he may pass out. Chest x-ray from today does show some bibasilar atelectasis. Pain is under good control. Patient did have issues with atrial fibrillation and is currently on amiodarone drip. Maintaining normal sinus rhythm. He is afebrile. White blood cell count 8.1, hemoglobin 7.1, creatinine 1.1. 04/17/2018 Patient seen and examined this morning, he states he is ready been ambulating in the peña twice a day. Feels well. Received blood transfusion yesterday, today's hemoglobin 7.4, platelet count 188. Sodium 139, potassium 4.5, BUN 26, creatinine 1.3. Objective - Vital Signs Vital signs: Vital Signs Temp 98 F 04/17/18 11:43 Pulse 72 04/17/18 11:43 Resp 16 04/17/18 11:43 BP 105/52 04/17/18 11:43 Pulse Ox 96 04/17/18 11:43 Intake & Output 04/16/18 04/17/18 04/17/18 18:59 06:59 18:59 Intake Total 310 100 Balance 310 100 Weight 70.9 kg Intake: Oral 100 Blood Product 310 Rc Pheresis 2 As3 Unit 310 [id number] Other: Voiding Method Toilet Toilet Urinal Urinal # Voids 0 ABP, PAP, CO, CI - Last Documented Arterial Blood Pressure 131/42 Pulmonary Artery Pressure 28/13 Cardiac Output 5.2 Cardiac Index 2.8 - Exam GENERAL EXAM: Alert, active, comfortable in no apparent distress. HEAD: Normocephalic. EYES: Normal reaction of pupils, equal size. NOSE: Clear with pink turbinates. THROAT: No erythema or exudates. NECK: No masses, no JVD. CHEST: Heart hugger in place. Dressing dry and intact. Sternum stable. LUNGS: Equal air entry with faint crackles in the bilateral posterior bases. CVS: S1 and S2 normal with no audible murmur, regular rhythm. ABDOMEN: No hepatosplenomegaly, normal bowel sounds, no guarding or rigidity. SPINE: No scoliosis or deformity SKIN: No rashes CENTRAL NERVOUS SYSTEM: No focal deficits, tone is normal in all 4 extremities. EXTREMITIES: There is no peripheral edema. No clubbing, no cyanosis. Peripheral pulses are intact. - Labs CBC & Chem 7: 04/17/18 06:17 04/17/18 06:17 Labs: Abnormal Lab Results - Last 24 Hours (Table) 04/16/18 04/16/18 04/16/18 Range/Units 08:33 11:56 16:37 RBC (4.30-5.90) m/uL Hgb (13.0-17.5) gm/dL Hct (39.0-53.0) % RDW (11.5-15.5) % BUN (9-20) mg/dL Creatinine (0.66-1.25) mg/dL POC Glucose (mg/dL) 129 H 127 H (75-99) mg/dL Calcium (8.4-10.2) mg/dL Magnesium (1.6-2.3) mg/dL Total Protein (6.3-8.2) g/dL Albumin (3.5-5.0) g/dL Crossmatch See Detail 04/16/18 04/17/18 04/17/18 Range/Units 20:56 01:46 05:48 RBC (4.30-5.90) m/uL Hgb (13.0-17.5) gm/dL Hct (39.0-53.0) % RDW (11.5-15.5) % BUN (9-20) mg/dL Creatinine (0.66-1.25) mg/dL POC Glucose (mg/dL) 142 H 139 H 120 H (75-99) mg/dL Calcium (8.4-10.2) mg/dL Magnesium (1.6-2.3) mg/dL Total Protein (6.3-8.2) g/dL Albumin (3.5-5.0) g/dL Crossmatch 04/17/18 04/17/18 Range/Units 06:17 06:17 RBC 2.35 L (4.30-5.90) m/uL Hgb 7.4 L (13.0-17.5) gm/dL Hct 21.9 L (39.0-53.0) % RDW 18.5 H (11.5-15.5) % BUN 26 H (9-20) mg/dL Creatinine 1.37 H (0.66-1.25) mg/dL POC Glucose (mg/dL) (75-99) mg/dL Calcium 8.0 L (8.4-10.2) mg/dL Magnesium 2.5 H (1.6-2.3) mg/dL Total Protein 4.6 L (6.3-8.2) g/dL Albumin 2.6 L (3.5-5.0) g/dL Crossmatch Assessment and Plan Plan: Assessment and plan #1 Coronary artery disease status post four-vessel bypass grafting 4 utilizing a MEJIAS to the LAD, reverse saphenous vein grafts to the obtuse marginal artery, posterior descending artery, diagonal artery. Postoperative day #3. #[address] segment elevation myocardial infarction. #3 Previous history of coronary artery disease with stent placement. #4 Hypertension. #5 Hyperlipidemia. #6 History of kidney cancer with partial nephrectomy. #7 Chronic tobacco dependence. #8 Benign prostatic hypertrophy. #9 Gastroesophageal reflux disease. #10 paroxysmal atrial fibrillation, currently in normal sinus rhythm. Plan Arrangements are being made for the patient to potentially be discharged home today. Once the patient is discharged home from the hospital he will have a follow-up appointment with Dr. Martinez in the office in 2 weeks. DNP note has been reviewed, I agree with a documented findings and plan of care. Patient was seen and examined.
[2018-04-17] MEDS ORDERED: LISINOPRIL 2.5 MG TAB PO SCH (12:00)
[2018-04-17 12:04] LABS: Glucose,Whole Blood 119 mg/dL (75-99)
[2018-04-17 15:13] VITALS: BP 125/58; PULSE 75; TEMP 98.1
--- NOTE | 2018-04-17 17:17 | P.PN ---
Subjective Progress Note Date: 04/17/18 Principal diagnosis: Coronary artery disease, status post coronary artery bypass grafting 4 Pulmonary consultation dated 04/13/2018 This is a 73-year-old male who is postop day #1 status post four-vessel bypass grafting. The patient is currently doing relatively well and he was extubated within the 4-6 hour timeframe. Currently he is on O2 at between 2-4 L/m. He is getting lactated Ringer's at 50 mL an hour and insulin drip at less than 1 unit per hour and he was on nitroglycerin but that has been turned off. His chest x-ray shows some bibasilar atelectasis and small bilateral effusions and postoperative changes. He does have a previous history of CAD with a recent ST segment elevation myocardial infarction and placement of a drug-eluting stent to the left anterior descending coronary artery. He also has a history of hypertension hyperlipidemia BPH kidney cancer, status post partial nephrectomy and a family history of CAD. The patient presented to the primary care physician's office on January 12 with complaints of chest pain shortness of breath sweats nausea and lightheadedness as well as an ST elevation on EKG. Subsequent evaluation revealed significant CAD. Again the patient had surgery yesterday and is doing very well today. The patient really has no complaints although apparently this morning had a near syncopal episode so he is back in bed. This is why the nitroglycerin was turned off. The patient apparently has a history of never having used tobacco products. No significant alcohol or illicit drug use either. On 04/06/2018, patient seen in follow-up in the intensive care unit. Resting comfortably in bed, in no acute distress, he is awake alert oriented 3. On 2 L per nasal cannula, his pulse ox is 95%, I asked effort is 1000 mL today. Lung sounds are positive for diminished breath sounds at the bases, with some limited crackles bilaterally, today's chest x-ray shows minimal left pleural effusion and/or atelectasis at the left base, improved from prior exam. This suspected minimal left apical pneumothorax appears to be resolving. Yesterday patient had episode of presyncope, does get not on the commode, quickly recovered after being placed in bed, thought to be orthostatic, patient received 1 unit of packed red blood cells yesterday for a hemoglobin of 6.6. Today's hemoglobin is 7.2, WBC 7.5, platelet count is 79. Sodium is 138, potassium is 4.7, chloride is 109, BUN is 23, creatinine is 1.18. Patient is tolerating oral intake, his pain is reasonably controlled, 2 mediastinal and left pleural chest tubes are in place, and the output is serosanguineous, thin, there has been 325 out of the left chest tube, and 120 out of the knee diastolic chest tubes. One set of ventricular wires, with VVI backup rate. Sinus rhythm on the monitor, with a rate of 72 BPM. Maintenance IV fluids LR at a rate of 20 ML per hour. On 04/16/2018 patient seen in follow-up on selective care unit. In bed, in no acute distress, sinus rhythm with a controlled rate. His postop day 4, post 4 vessel bypass grafting. Incentive spirometry effort is 2000, patient has not had any recurrent episodes of syncope. This morning he was getting up and felt dizzy, but did not pass out, was assisted back to bed. Today's hemoglobin is 6.7, and CT surgery is plan on transfusing the patient with 1 unit of packed red blood cells. Afebrile, blood pressures 105/54, on room air, his pulse ox is 93%, lung sounds are clear to auscultation. Set of ventricular epicardial wires are grounded. Chest tubes are out. His chest x-ray showed improved aeration at the left lung base. Tiny bilateral effusions. On 04/17/2018 patient seen again in follow-up on selective care unit. Doing well, in no acute distress, pulse ox 95%, afebrile. No further episodes of syncope or dizziness. Patient received a unit of packed red blood cells yesterday, today's hemoglobin is 7.4, patient has been ambulating, tolerating activity well, his pain is well controlled. Lung sounds reveal limited crackles at the left base. IS effort is [id number] today. Today's chest x-ray no evidence for acute pulmonary disease. Today's labs were reviewed, has been slight worsening of patient's renal profile, B1 is 26, creatinine is 1.37. He is voiding, he is tolerating oral intake. Patient has ambulated in the hallway without any difficulties, no new complaints. Patient is anticipated to be discharged sometime this afternoon. Objective - Vital Signs Vital signs: Vital Signs Temp 98.1 F 04/17/18 15:12 Pulse 75 04/17/18 15:12 Resp 16 04/17/18 15:12 BP 125/58 04/17/18 15:12 Pulse Ox 95 04/17/18 15:12 Intake & Output 04/16/18 04/17/18 04/17/18 18:59 06:59 18:59 Intake Total 310 100 Balance 310 100 Weight 70.9 kg Intake: Oral 100 Blood Product 310 Rc Pheresis 2 As3 Unit 310 [id number] Other: Voiding Method Toilet Toilet Urinal Urinal # Voids 0 1 # Bowel Movements 1 ABP, PAP, CO, CI - Last Documented Arterial Blood Pressure 131/42 Pulmonary Artery Pressure 28/13 Cardiac Output 5.2 Cardiac Index 2.8 - Exam GENERAL EXAM: Alert, pleasant, 73-year-old white male comfortable in no apparent distress. HEAD: Normocephalic/atraumatic. EYES: Normal reaction of pupils, equal size. Conjunctiva pink, sclera white. NOSE: Clear with pink turbinates. THROAT: No erythema or exudates. NECK: No masses, no JVD, no thyroid enlargement, no adenopathy. CHEST: No chest wall deformity. Symmetrical expansion. Ventricular wires are grounded, chest tubes have been discontinued. LUNGS: Equal air entry with diminished breath sounds at the bases. CVS: Regular rate and rhythm, normal S1 and S2, no gallops, no murmurs, no rubs ABDOMEN: Soft, nontender. No hepatosplenomegaly, normal bowel sounds, no guarding or rigidity. EXTREMITIES: No clubbing, no edema, no cyanosis, 2+ pulses and upper and lower extremities. Left lower extremity EVH site well approximated, covered with a dry intact dressing. MUSCULOSKELETAL: Muscle strength and tone normal. SPINE: No scoliosis or deformity SKIN: No rashes CENTRAL NERVOUS SYSTEM: Alert and oriented -3. No focal deficits, tone is normal in all 4 extremities. PSYCHIATRIC: Alert and oriented -3. Appropriate affect. Intact judgment and insight. - Labs CBC & Chem 7: 04/17/18 06:17 04/17/18 06:17 Labs: Abnormal Lab Results - Last 24 Hours (Table) 04/16/18 04/16/18 04/16/18 Range/Units 08:33 16:37 20:56 RBC (4.30-5.90) m/uL Hgb (13.0-17.5) gm/dL Hct (39.0-53.0) % RDW (11.5-15.5) % BUN (9-20) mg/dL Creatinine (0.66-1.25) mg/dL POC Glucose (mg/dL) 127 H 142 H (75-99) mg/dL Calcium (8.4-10.2) mg/dL Magnesium (1.6-2.3) mg/dL Total Protein (6.3-8.2) g/dL Albumin (3.5-5.0) g/dL Crossmatch See Detail 04/17/18 04/17/18 04/17/18 Range/Units 01:46 05:48 06:17 RBC 2.35 L (4.30-5.90) m/uL Hgb 7.4 L (13.0-17.5) gm/dL Hct 21.9 L (39.0-53.0) % RDW 18.5 H (11.5-15.5) % BUN (9-20) mg/dL Creatinine (0.66-1.25) mg/dL POC Glucose (mg/dL) 139 H 120 H (75-99) mg/dL Calcium (8.4-10.2) mg/dL Magnesium (1.6-2.3) mg/dL Total Protein (6.3-8.2) g/dL Albumin (3.5-5.0) g/dL Crossmatch 04/17/18 04/17/18 Range/Units 06:17 11:57 RBC (4.30-5.90) m/uL Hgb (13.0-17.5) gm/dL Hct (39.0-53.0) % RDW (11.5-15.5) % BUN 26 H (9-20) mg/dL Creatinine 1.37 H (0.66-1.25) mg/dL POC Glucose (mg/dL) 119 H (75-99) mg/dL Calcium 8.0 L (8.4-10.2) mg/dL Magnesium 2.5 H (1.6-2.3) mg/dL Total Protein 4.6 L (6.3-8.2) g/dL Albumin 2.6 L (3.5-5.0) g/dL Crossmatch Assessment and Plan Plan: Assessment: Postop day #5, status post four-vessel bypass grafting Previous history of ST segment elevation myocardial infarction Postoperative ventilator management with extubation within the 4-6 hour window History of CAD with previous catheterization and stent placement History of hypertension History of hyperlipidemia History of kidney cancer with partial nephrectomy Lifelong nontobacco use History of BPH History of gastroesophageal reflux disease Plan: Continue current plan of care, continue encouraging deep breathing and coughing , and incentive spirometry use. Today's chest x-ray has been reviewed, showed no acute findings. Patient is doing well, no acute events overnight, he is tolerating ambulation. From pulmonary perspective patient is clear for discharge home today, cleared by CT surgery. Follow-up with Dr. Dr. Mercado in the office in one week. I performed a history & physical examination of the patient and discussed their management with my nurse practitioner, Amarilys Gamino. I reviewed the nurse practitioner's note and agree with the documented findings and plan of care. Lung sounds are positive for bibasilar diminished breath sounds. The findings and the impression was discussed with the patient. I attest to the documentation by the nurse practitioner. Time with Patient: Less than 30
--- NOTE | 2018-04-18 11:15 | P.DS ---
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 Do you want consulting provider notified?: Yes Placement Type Exists?: Yes Consult Physician Routine Consulting Provider: Laure Ross Consult Reason/Comments: medical management Do you want consulting provider notified?: Yes Placement Type Exists?: Yes Consult Physician Routine Consulting Provider: Lamberto Martinez Consult 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 Consult: post cardiac surgery Do you want consulting provider notified?: Yes Placement Type Exists?: Yes Primary care physician: Jun Bernal - Discharge Diagnosis(es) (1) BPH (benign prostatic hyperplasia) Status: Chronic (2) CAD (coronary artery disease) Status: Chronic (3) Family history of premature CAD Status: Chronic (4) History of coronary artery stent placement Status: Chronic (5) History of partial nephrectomy Status: Chronic (6) Hyperlipidemia Status: Chronic (7) Hypertension Status: Chronic (8) History of ST elevation myocardial infarction (STEMI) Status: Resolved (9) History of kidney cancer Status: Resolved Hospital Course: FINAL DIAGNOSIS: 1. Coronary artery disease 2. History of recent STEMI with placement of drug-eluting stent to the left anterior descending coronary artery 3. Hypertension 4. Hyperlipidemia 5. BPH 6. Kidney cancer status post partial nephrectomy 7. Self reducible right-sided inguinal hernia 8. Family history of premature coronary artery disease 9. Postoperative acute blood loss anemia, expected outcome of surgery given hemodilution and the use of cardiopulmonary bypass pump 10. Postoperative atrial fibrillation with rapid ventricular response, an unexpected outcome PRINCIPAL PROCEDURE: 1. Coronary artery bypass graft 4, left internal mammary artery to the left anterior descending artery, reverse saphenous vein graft to the obtuse marginal artery, reverse saphenous vein graft to posterior descending artery, reverse saphenous vein graft to diagonal artery 2. Endoscopic vein harvesting of the left greater saphenous vein 3. Intraoperative transesophageal echocardiogram HISTORY OF PRESENT ILLNESS: This is a 73-year-old active male who follows with Dr. Jun Bernal and an outpatient basis. He presented to [facility] emergency room by EMS at the end of December 2017 with complaints of chest pain. He was ruled in for ST elevation myocardial infarction, was taken emergently to the [facility] and was found to have critical disease in the proximal mid LAD as well as a lesion in the distal LAD by the apex, ostial circumflex stenosis 70-80 %, mid circumflex with a focal stenosis of a 90%, and RCA stenosis of 80% at the bifurcation into the PDA and PLB. A drug-eluting stent was placed to the LAD and the patient was started on Brilinta. Transthoracic echocardiogram completed during that admission demonstrated moderate global hypokinesis of the left ventricle with ejection fraction 30-35%, mild aortic insufficiency, mild mitral regurgitation, and mild tricuspid regurgitation. Once stabilized he was discharged home with plans for future intervention. He had continued exertional dyspnea and was brought back to the [facility] for elective heart catheterization at the beginning of March. His LAD stent was patent, distal LAD 50-60% stenosis, there was a lesion within the ostial circumflex and a focal 95% stenosis in the mid to distal circumflex, and focal stenosis of 80- 90% in the RCA as it bifurcated into the PDA and PLB. Dr. Esparza from cardiothoracic surgery was consulted. The patient was recommended to undergo coronary artery bypass grafting. All risks and benefits were explained in detail to the patient and his family, all questions were answered, and consent was obtained to proceed with surgery. The patient was discharged to home to be brought back as an outpatient to allow for Brilinta metabolism. HOSPITAL COURSE: The patient was brought to the hospital on 04/12/18, taken to the preoperative area, prepared in the usual fashion, and subsequently taken to the operating room where Dr. Esparza performed coronary artery bypass graft 4, left internal mammary artery to the left anterior descending artery, reverse saphenous vein graft to the obtuse marginal artery, reverse saphenous vein graft to posterior descending artery, reverse saphenous vein graft to diagonal artery, endoscopic vein harvesting of the left greater saphenous vein, and intraoperative transesophageal echocardiogram. Upon completion of surgery the patient was transferred to the cardiovascular intensive care unit where he was recovered, monitored hemodynamically, and where he progressed to cardiac rehabilitation phase 1. He was extubated, all lines, tubes, and drips were discontinued when appropriate. He did have an episode of acute blood loss anemia requiring transfusion as well as postoperative atrial fibrillation which resolved with amiodarone administration. He was transferred to [address] [place] [address] for further monitoring and rehabilitation where his oxygen was titrated down, he continued to work with physical and occupational therapy, he was tolerating oral diet, his pain was controlled, and he was ready to be discharged to home with home care on postoperative day #5. He received written and verbal instruction regarding his medications, activity restrictions, signs and symptoms requiring physician notification, and follow-up appointments. COMPLICATIONS: The patient experienced postoperative blood loss anemia and atrial fibrillation which were treated accordingly.. Patient Condition at Discharge: Stable Plan - Discharge Summary Discharge Rx Participant: Yes New Discharge Prescriptions: New Amiodarone [Cordarone] 400 mg PO BID #40 tab Atorvastatin [Lipitor] 40 mg PO HS #30 tab HYDROcodone/APAP 5-325MG [[place] 5-325] 1 each PO Q6HR PRN #30 tab PRN Reason: Moderate Pain Pantoprazole [Protonix] 40 mg PO AC-BRKFST #[address] tablet[address] Medina-Docusate Sodium [Senokot-S] 2 each PO HS tab Continue Tamsulosin [Flomax] 0.4 mg PO Q48H Aspirin EC [Ecotrin Low Dose] 81 mg PO HS #30 tablet. Clopidogrel Bisulfate [Plavix] 75 mg PO HS #30 tablet Metoprolol Tartrate [Lopressor] 12.5 mg PO BID #60 tab Changed Lisinopril [Zestril] 2.5 mg PO DAILY@1200 #30 tab Discontinued Nitroglycerin Sl Tabs [Nitrostat] 0.4 mg SUBLINGUAL Q5M PRN #7 tab PRN Reason: Chest Pain Atorvastatin [Lipitor] 20 mg PO HS Discharge Medication List Tamsulosin [Flomax] 0.4 mg PO Q48H 01/12/18 [History] Amiodarone [Cordarone] 400 mg PO BID #40 tab 04/17/18 [Rx] Aspirin EC [Ecotrin Low Dose] 81 mg PO HS #30 tablet. 04/17/18 [Rx] Atorvastatin [Lipitor] 40 mg PO HS #30 tab 04/17/18 [Rx] Clopidogrel Bisulfate [Plavix] 75 mg PO HS #30 tablet 04/17/18 [Rx] HYDROcodone/APAP 5-325MG [[place] 5-325] 1 each PO Q6HR PRN #30 tab 04/17/18 [Rx] Lisinopril [Zestril] 2.5 mg PO DAILY@1200 #30 tab 04/17/18 [Rx] Metoprolol Tartrate [Lopressor] 12.5 mg PO BID #60 tab 04/17/18 [Rx] Pantoprazole [Protonix] 40 mg PO AC-BRKFST #30 tablet. 04/17/18 [Rx] Sennosides-Docusate Sodium [Senokot-S] 2 each PO HS tab 04/17/18 [Rx] Follow up Appointment(s)/Referral(s): Jun Bernal MD [Primary Care Provider] - 2 Weeks (Please make appointment.) Pb Meza NPC [Nurse Practitioner] - 04/21/18 1:00 pm Oumar Mercado DO [Doctor of Osteopathic Medicine] - 05/10/18 1:30 pm Kingston Esparza MD [REFERRING] - 05/10/18 1:00 pm [facility], [NON-STAFF] - As Needed Lamberto Martinez MD [STAFF PHYSICIAN] - 05/01/18 10:45 am Ambulatory/Diagnostic Orders: Complete Blood Count w/diff [LAB.AMB] Time Frame: 3 Days, Location: None Selected Comprehensive Metabolic Panel [LAB.AMB] Time Frame: 3 Days, Location: None Selected Patient Instructions/Handouts: Sternal Precautions (GEN), Coronary Artery Bypass Graft (DC) Activity/Diet/Wound Care/Special Instructions: DISCHARGE INSTRUCTIONS: 1. No driving for 4 weeks, or until physician gives their ok. 2. The patient should sleep in their own bed, no medical bed needed. 3. Stairs are not an issue. If the bedroom is upstairs, it is advised that the patient go up at night and down in the morning for the first week. Go slowly, using handrail and take 1 step at a time. 4. JOHN hose are to be worn for 30 days or until physician discontinues. 5. Heart hugger is to be worn 100% of the time until physician discontinues.( except when showering) 6. No lifting, pushing, or pulling more than 10 pounds for 12 weeks. The physician will advise of any restriction changes. 7. The patient is expected to continue the prescribed walking program. 8. Continue pain control per as needed orders. 9. Continue with incentive spirometry and splinting/heart hugger until otherwise directed by the physician. 10. Must shower daily using liquid antibacterial soap and a separate white washcloth for each individual incision. 11. Routine sternal incision care. No powders, lotions, ointments on incisions. 12. Please call surgeon/HISTOTECHNOLOGIST for temp greater than 101 F or purulent drainage from incisions. 13. Narcotic medications were discussed with the patient, including the potential for misuse, addiction, and abuse. Opiod Start Talking form was reviewed with the patient. 14. All prescriptions given by surgeon for 30 days. Refills need to be filled through discharge rn/primary care physician. 15. A Red armband has been placed on the patient. It should be worn for 30 days post surgery and will be removed by the cardiac surgeons. If an ER visit is necessary, please make sure the number on the Red armband is called. HOME HEALTH SERVICES TO PROVIDE: RN SKILLED HOME CARE SERVICES FOR POST-OP SURGICAL PATIENTS WITH THE FOLLOWING: Coronary Artery Bypass Surgery (CABG), Mitral Valve Replacement/ Repair ( MVR), Aortic Valve Replacement/Repair (AVR) RN TO CONTINUE EDUCATION FROM ``ROAD TO A HEALTH HEART PATIENT EDUCATION MANUAL (GIVEN TO PATIENT IN THE HOSPITAL) MEDICATION RECONCILIATION WITH EDUCATION NEEDED ON FIRST HOME VISIT EMPHASIZE IMPORTANCE OF WEARING BREAST SUPPORT/HEART HUGGER ENCOURAGE USE OF INCENTIVE SPIROMETER 10 X EVERY HOUR WHILE AWAKE ENCOURAGE UTILIZATION OF LOWER EXTREMITY COMPRESSION STOCKINGS/JOHN HOSE and ELEVATE LEGS ABOVE LEVEL OF HEART WHILE AT REST. ENCOURAGE AMBULATION 3-5x/day INCREASING TOLERATES, WHILE AVOID EXTREMES IN TEMPERATURE FREQUENCY: RN TO OPEN THE PATIENT WITHIN 24 HOURS OF DISCHARGE FROM THE HOSPITAL WITH TELEHEALTH INSTALLED AT [facility], RN TO VISIT 2-3 X A WEEK FOR 4 WEEKS ESTABLISHED BY PATIENT NEEDS. LABORATORY: CBC, CMP TO BE DRAWN ON THE THIRD DAY HOME, 04/20/18, (RAN STAT) FAX RESULTS TO [phone]. TELEHEALTH PARAMETERS: WEIGHT: NOTIFY MD OF WEIGHT GAIN OF 2 LBS IN 24 HOURS OR 5 LBS IN ONE WEEK HR: NOTIFY MD OF HR <55 BPM OR HR>100 BPM BP: NOTIFY MD IF BP <90/55 OR BP>140/100 O2 SAT: NOTIFY MD IF PO2<93% ON ROOM AIR SEND TELEHEALTH REPORT TO POLICE SERGEANT AND CARDIOVASCULAR SURGEON THE FIRST WEEK OF CARE AND THEN BI-WEEKLY. PLEASE ADDITIONALLY COMMUNICATE ANY ABNORMALS AND NEW FINDINGS TO THE SURGEONS OFFICE. Discharge Disposition: HOME WITH HOME HEALTH SERVICES
== END 2018-04-17 17:29 | disposition home health service (06) | DRG 236 ==
LOC: 2ORMAIN 06:36 → 6ICU 13:59 → 6SEL 04-14 15:54 → 6ICU 04-14 16:29 → 6SEL 04-15 18:22
PROVIDERS: ADMIT Surgery; ATTEND Surgery
PROC: 06BQ4ZZ Excision of Left Saphenous Vein, Percutaneous Endoscopic Approach (ICD-10-PCS; 2018-04-12)
PROC: 5A1221Z Performance of Cardiac Output, Continuous (ICD-10-PCS; 2018-04-12)
PROC: B246ZZ4 Ultrasonography of Right and Left Heart, Transesophageal (ICD-10-PCS; 2018-04-12)
PROC: 02100Z9 Bypass Coronary Artery, One Artery from Left Internal Mammary, Open Approach (ICD-10-PCS; principal; 2018-04-12 09:15)
PROC: 021209W Bypass Coronary Artery, Three Arteries from Aorta with Autologous Venous Tissue, Open Approach (ICD-10-PCS; 2018-04-12 09:15)
DX: I25.10 Atherosclerotic heart disease of native coronary artery without angina pectoris (principal); D62 Acute posthemorrhagic anemia; J98.11 Atelectasis; I25.2 Old myocardial infarction; Z85.528 Personal history of other malignant neoplasm of kidney; Z90.5 Acquired absence of kidney; E78.5 Hyperlipidemia, unspecified; E86.0 Dehydration; I08.3 Combined rheumatic disorders of mitral, aortic and tricuspid valves; I10 Essential (primary) hypertension; I48.0 Paroxysmal atrial fibrillation; K21.9 Gastro-esophageal reflux disease without esophagitis; K40.90 Unilateral inguinal hernia, without obstruction or gangrene, not specified as recurrent; N40.1 Benign prostatic hyperplasia with lower urinary tract symptoms; R33.8 Other retention of urine; Z79.82 Long term (current) use of aspirin; Z79.899 Other long term (current) drug therapy; Z79.02 Long term (current) use of antithrombotics/antiplatelets; Z82.49 Family history of ischemic heart disease and other diseases of the circulatory system; Z83.3 Family history of diabetes mellitus; Z87.11 Personal history of peptic ulcer disease; Z95.5 Presence of coronary angioplasty implant and graft; Z91.041 Radiographic dye allergy status
CPT/HCPCS: 71045; 71046; 80048; 80053; 81001; 82330; 82805; 83735; 84100; 85025; 85027; 85520; 85610; 85730; 86850; 86891; 86900; 86901; 86920; 94002; 94640; 94760